=== PATIENT | female | born 1995 | race Caucasian/White ===

== ENCOUNTER 2016-11-23 09:24 | Inpatient (IN) | payer OTHER ==
[~2016-11-23] VITALS: Ht 165.1 cm; Wt 64.1 kg
[~2016-11-23 09:24] MED LIST: ABIL400I IM; ADVI200C5 PO; ARIP15TAB PO; FLUO10CA9 PO; HYDR25T PO; TRAZO50TA PO
[2016-11-23 10:27] LABS: MEAN CORPUSCULAR HEMOGLOBIN 31.4 pg (27.0-33.0); MEAN CORPUSCULAR HGB CONC 34.7 g/dl (32.0-36.5); MEAN CORPUSCULAR VOLUME 90.4 fl (80.0-96.0); RED CELL DISTRIBUTION WIDTH 12.1 % (11.5-14.5); WHITE BLOOD COUNT 4.6 K/mm3 (4.0-10.0)
[2016-11-23 10:34] LABS: AMPHETAMINES LEVEL URINE NEGATIVE (NEGATIVE); BENZODIAZEPINES URINE NEGATIVE (NEGATIVE); COCAINE METABOLITE URINE NEGATIVE (NEGATIVE); METHADONE URINE NEGATIVE (NEGATIVE)
[2016-11-23 10:35] LABS: CONTROL LINE INT CTR LINE PRESENT; OPIATES URINE NEGATIVE (NEGATIVE); TRICYCLIC ANTIDEPRESS URINE NEGATIVE (NEGATIVE)
[2016-11-23 10:46] LABS: CONTROL LINE HCG INT CTR LINE PRESENT
[2016-11-23 11:02] LABS: ALBUMIN 4.4 GM/DL (3.2-5.2); ALBUMIN/GLOBULIN RATIO 1.29 (1.00-1.93); ALKALINE PHOSPHATASE 89 U/L (45-117); ALT/SGPT 15 U/L (12-78); ANION GAP 9 MEQ/L (8-16); AST/SGOT 9 U/L (15-37); BILIRUBIN,DIRECT 0.2 MG/DL (0.0-0.2); BILIRUBIN,TOTAL 0.5 MG/DL (0.2-1.0); BLOOD UREA NITROGEN 11 MG/DL (7-18); CALCIUM LEVEL 8.6 MG/DL (8.5-10.1); CARBON DIOXIDE LEVEL 25 MEQ/L (21-32); CHLORIDE LEVEL 107 MEQ/L (98-107); CREATININE FOR GFR 0.82 MG/DL (0.55-1.02); GLUCOSE, FASTING 85 MG/DL (70-105); SODIUM LEVEL 141 MEQ/L (136-145); TOTAL PROTEIN 7.8 GM/DL (6.4-8.2)
--- NOTE | 2016-11-23 16:03 | EDDOCDS ---
Nurse's Notes [facility] Name: Allison Baum Age: 21 yrs Sex: Female : 1995 Arrival Date: 11/23/2016 Time: 09:24 Bed [facility] Private MD: NO PRIMARY PHYSICIAN, . Diagnosis: Major depressive disorder, recurrent, moderate;Suicidal ideations Presentation: 11/23 09:27 Presenting complaint: Patient states: Depression with "recent thoughts of being ". b1 Mental Health Triage Level: Level 2: The patient displays active suicidal ideations. Adult Sepsis Screening: The patient does not have new or worsening altered mentation. Patient's respiratory rate is less than 22. Systolic blood pressure is greater than 100. Patient has a qSOFA score of 0- Negative Sepsis Screen. Suicide/Homicide risk assessment- The patient admits to and/or has been reported to be having suicidal ideations. The patient reports that he/she has not been admitted to an inpatient mental health facility in the last 30 days. The patient reports that he/she has a recent or current history of substance abuse. The patient reports that he/she has no prior history of suicide attempt and/or organized plan. The patient reports that he/she has not experienced a significant life altering event in the last 30 days. The patient reports that he/she lacks adequate social support. The patient reports he/she has no significant chronic medical condition(s). Status: Patient is not a service delivery manager or dependent. Transition of care: patient was not received from another setting of care. 09:27 Acuity: JUAN J Level 3 b1 09:27 Method Of Arrival: Walkin/Carried/Asstd mlb1 09:30 Red Flag criteria, patient assessed and taken directly to a bed. b1 Triage Assessment: 09:30 General: Appears in no apparent distress, Behavior is appropriate for age, cooperative. mlb1 Pain: Denies pain. HIV screening NA for this visit Offered previously. [employer]: 09:30 LMP 11/06/2016 mlb1 Historical: - Allergies: no known allergies; - Home Meds: 1. none - PMHx: Anxiety; Depression; Schizo-Affective Disorder; - PSHx: none; - The history from nurses notes was reviewed: and I agree with what is documented. - Social history: Smoking status: Patient uses tobacco products, light tobacco smoker. No barriers to communication noted, The patient speaks fluent [place] Verdean, Speaks appropriately for age. - : The pt / caregiver states he / she is not on anticoagulants. Home medication list is obtained from the patient. - Hospitalizations: : No recent hospitalization is reported. - Exposure Risk Screening:: None identified. - Immunization history:: All immunizations up-to-date. - Family history: Not pertinent. - Social history:: the patient smokes cigarettes the patient drinks alcohol. Screenin:56 Screening information is obtained from the patient. Fall risk: No risks identified. mb9 Assistance ADL's: requires no assistance with activities of daily living. Abuse/DV Screen: The patient / caregiver reports he/she is: not in a situation that causes fear, pain or injury. Nutritional screening: No deficits noted. Advance Directives: There is no active DNR order. home support is adequate. Assessment: 11:15 General: Appears in no apparent distress, comfortable, Behavior is appropriate for age, mb9 cooperative, pt resting comfortably on the stretcher. security observing. . 12:26 General: Appears in no apparent distress, comfortable, Behavior is cooperative, mom in mb9 to see pt. security observing. . 14:58 General: Appears in no apparent distress, comfortable, Behavior is appropriate for age, mb9 cooperative. Respiratory: Airway is patent Respiratory effort is even, unlabored. 15:55 Reassessment: Patient appears in no apparent distress at this time. General: Appears mb9 comfortable, Behavior is appropriate for age, cooperative. Respiratory: Airway is patent Respiratory effort is even, unlabored. Mental Health Eval: 11:43 Mental health consult is initiated at 11:00. Status: The patient is not a ml4 service delivery manager or dependent. [facility] Behavioral Health: The patient is not an established patient of [facility] Behavioral Health. Referral Information: Evaluation referral is generated by Alona Rios, [facility] \\T\\ TLS . . The patient was referred for evaluation because pt was at counseling appt today and expressed passive SI . Subjective: The patients chief complaint is pt states, "I'm not suicidal, but my therapist was concerned because I burned my finger 2 days ago." Pt reports suffering from vague SI for the past week due some on-going stressors. States she doesn't care if she lives or dies. 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 Pt also states she's lonely and feels like a burden to her family due to the above stressors. She denies active SI, however states, "we all and I wouldn't care if it happened to me now." Pt reports a hx of cutting, but nothing recent. Admits burning herself 2 days ago in the presence of a friend after realizing "my life is horrible." At that time she was about to cry, so decided to burn herself instead to redirect her thoughts. Pt denies SI currently, however continues to express passive SI at bedside. . Delusions are denied. Patient's mood is anxious, Hallucinations are denied. Mental Health history: depression, self -mutilation, Mental Health Admissions: Last admission to [facility] 03/10/16 and d/c 03/24/16 Current Outpatient Mental Health Services: Therapist / Agency: JEANNETTE Prado at [facility] . [facility], no psychiatrist due to non-compliance with tx. Pt has a hx of "no shows" . Current living environment is Family / Home Support: adequate The patient currently lives with his / her parents, . The patient is . Patient presents to Emergency Department with the following symptoms within the past 2 weeks: anger, anxiety, erratic appetite depressed mood, drug abuse, feelings of helplessness/hopelessness, non-compliance, pt expresses vague SI, no plan. . poor concentration, poor impulse control, relational problem, Patient has mutilated themselves by burning their left hand. Substance abuse: Patient uses of wine, 1 glass weekly. Patient uses tobacco 1/2 pack Frequency daily. Mental status exam: Patients appearance is appropriate, Patient's behavior is cooperative, Speech is normal. Affect is appropriate. Mood is appropriate. Hallucinations are Denied, "I just hear my inner voice." . Appetite is characterized by binges. Memory is good. Energy level is normal. Content of thought is depressive. due to vague SI Thought process is intact. Cognitive level is oriented to person, place, time and situation Patient's insight is poor. Judgement is poor. Rapport with interviewer is guarded. Suicidal Ideation is denied. Homicidal ideation is denied. Disposition: Medically cleared for disposition by Willy Barakat MD Psychiatric Consult is performed by phone with Dr Apoorva Gerber. [facility] Admission Criteria: The patient displays self-mutilative behavior. The patient requires continuous observation and/or control to protect self, others or property. The patient's care requires a multi-modal treatment plan under close supervision and coordination due to the complexity and severity of the patient's symptoms. The patient requires administration and monitoring of psychoactive medications by skilled medical providers due to the side effects of the psychoactive medications or significant dosage adjustments. Legal Status: Patient's legal status will be Emergency admission: . [place] Safe Act: [place] Safe Act is applicable to this patient. The patient poses a risk to self or other and the Nursing Skein Dyer has been notified. He/She will enter the patient's data. DSM-V Differential Diagnosis: Unspecified Depressive Disorder (F32.9). Narrative: Notice of Status and Rights, FAQ, and Bill of Rights was given at bedside. 13:10 Insurance Pre-Certification: Not Required, [employer] . Awaiting: transfer to [facility]. ml4 Vital Signs: 09:26 BP 129 / 80; Pulse 84; Resp 18; Temp 98.9; Pulse Ox 100% ; Weight 61.23 kg; Height 5 elp ft. 5 in. (165.10 cm); Pain 0/10; 13:18 BP 107 / 63; Pulse 57; Resp 19; Temp 97.4; Pulse Ox 99% on R/A; Pain 0/10; sew 15:55 BP 102 / 65; Pulse 78; Resp 17; Temp 98.3(TE); Pulse Ox 99% ; mb9 09:26 Body Mass Index 22.46 (61.23 kg, 165.10 cm) elp Vitals: 09:26 Log In Time: November 23, 2016 at 09:24. RN notified that patient meets Red Flag elp criteria. ED Course: 09:25 Patient visited by Jennifer Quinones PCA. elp 09:25 Butch [facility] [place] Private Physician. elp 09:25 Patient moved to Waiting elp 09:26 NO PRIMARY PHYSICIAN, . is Private Physician. elp 09:26 Patient visited by Jennifer Quinones PCA. elp 09:27 Patient visited by Juan Gamez, RN. mlb1 09:28 Triage Initiated mlb1 09:30 Patient visited by Juan Gamez RN. mlb1 09:30 Patient moved to [facility] mlb1 09:38 Willy Barakat MD is Attending Physician. pc 09:39 Pt greeted and oriented to ED. Patient advised of names of staff involved in care, jrd location of call arreola, wait times and NPO status. Accompanied by Family Member, Patient has correct armband on for positive identification. Placed in psych safe attire. Bed in low position. Call light in reach. Side rails up X 1. Security observing. Property removed, secured in belongings bag- Placed in locker #5. Property :property removal is pending the arrival of a female observer. vascular technologist (pro) notified. Door closed. Noise minimized. Visitors limited. Report received from rn - psych. triage level #2, +si, cooperative \\T\\ this time. The patient / caregiver is instructed regarding the plan of care and ED course. Psych Safety Check: Location: Psych Room. 09:53 Patient visited by Janes Bran PCA. jrd 10:00 Patient visited by Willy Barakat MD. pc 10:14 Patient visited by Gonzalez Paniagua Security Aide. pjf 10:18 Acetaminophen Level Sent. jrd 10:18 Thyroid Stimulating Hormone Sent. jrd 10:18 Salicylate Level Sent. jrd 10:18 Liver Profile Sent. jrd 10:18 HCG,Serum Qualitative Sent. jrd 10:18 Ethyl Alcohol (ethanol) Sent. jrd 10:18 Drug Eval Toxicology ED Only Sent. jrd 10:18 Complete Blood Count Sent. jrd 10:19 Basic Metabolic Profile Sent. jrd 10:28 Patient visited by Gonzalez Paniagua Security Aide. pjf 10:43 Patient visited by Gonzalez Paniagua Security Aide. pjf 10:43 [facility] [place] Agreement was scanned into [employer] and attached to record. jls1 10:58 Patient visited by Gonzalez Paniagua Security Aide. pjf 11:11 Patient visited by Gonzalez Paniagua Security Aide. pjf 11:36 Patient visited by Orin Bowen. sew 11:36 Psych Safety Check: Location: Psych Room. Visual Assessment: Cooperative, pt talking sew with PSA. 11:49 Patient visited by Orin Bowen. sew 11:49 Psych Safety Check: Location: Psych Room. Visual Assessment: Cooperative. sew 12:06 Psych Safety Check: Location: Psych Room. Visual Assessment: Cooperative. sew 12:07 Patient visited by Orin Bowen. sew 12:14 Apoorva Gerber is Hospitalizing Provider. pc 12:23 Patient visited by Orin Bowen. sew 12:23 Psych Safety Check: Location: Psych Room. Visual Assessment: Cooperative. sew 12:52 Patient visited by Orin Bowen. sew 12:52 Patient visited by Orin Bowen. sew 12:52 Diet: Patient given regular meal. Psych Safety Check: Location: Psych Room. Visual sew Assessment: Cooperative. 13:07 Patient visited by Orin Bowen. sew 13:07 Psych Safety Check: Location: Psych Room. Visual Assessment: Cooperative. sew 13:09 [facility] Legal paperwork was scanned into [employer] and attached to record. ml4 13:10 Patient visited by Orin Bowen. sew 13:10 Diet: Tolerated well. sew 13:18 Patient visited by Orin Bowen. sew 13:44 Psych Safety Check: Location: Psych Room. Visual Assessment: Cooperative. sew 13:45 Patient visited by Orin Bowen. sew 13:56 Psych Safety Check: Location: Psych Room. Visual Assessment: Cooperative. sew 13:57 Patient visited by Orin Bowen. sew 14:07 Patient visited by Orin Bowen. sew 14:07 Psych Safety Check: Location: Psych Room. Visual Assessment: Cooperative. sew 14:22 Psych Safety Check: Location: Psych Room. Visual Assessment: Cooperative. sew 14:23 Patient visited by Orin Bowen. sew 14:37 Patient visited by Orin Bowen. sew 14:37 Psych Safety Check: Location: Psych Room. Visual Assessment: Cooperative. sew 14:48 Psych Safety Check: Location: Psych Room. Visual Assessment: Cooperative. sew 14:49 Patient visited by Orin Bowen. sew 15:05 Psych Safety Check: Location: Psych Room. Visual Assessment: Cooperative. mb9 15:15 Patient visited by Orin Bowen. sew 15:15 Psych Safety Check: Location: Psych Room. Visual Assessment: Cooperative. sew 15:27 Psych Safety Check: Location: Psych Room. Visual Assessment: Sleeping. sew 15:28 Patient visited by Orin Bowen. sew 15:39 Patient visited by Orin Bowen. sew 15:39 Psych Safety Check: Location: Psych Room. Visual Assessment: Cooperative. sew 15:53 [facility] Legal paperwork was scanned into [employer] and attached to record. ml4 15:56 No IV's were initiated during this patient's visit. No procedures done that require mb9 assistance. Attachments: 15:53 [facility] Legal paperwork ml4 Order Results: Lab Order: Acetaminophen Level; SPEC'11/23/16 10:14 Test: ACETAMINOPHEN LEVEL; Value: < 2.0; Range: 10.0-30.0; Abnormal: Below low normal; Units: UG/ML; Status: F Lab Order: Basic Metabolic Profile; SPEC'11/23/16 10:14 Test: GLUCOSE, FASTING; Value: 85; Range: 70-105; Units: MG/DL; Status: F Test: BLOOD UREA NITROGEN; Value: 11; Range: 7-18; Units: MG/DL; Status: F Test: CREATININE FOR GFR; Value: 0.82; Range: 0.55-1.02; Units: MG/DL; Status: F Test: SODIUM LEVEL; Value: 141; Range: 136-145; Units: MEQ/L; Status: F Test: POTASSIUM SERUM; Value: 4.0; Range: 3.5-5.1; Units: MEQ/L; Status: F Test: CHLORIDE LEVEL; Value: 107; Range: 98-107; Units: MEQ/L; Status: F Test: CARBON DIOXIDE LEVEL; Value: 25; Range: 21-32; Units: MEQ/L; Status: F Test: ANION GAP; Value: 9; Range: 8-16; Units: MEQ/L; Status: F Test: CALCIUM LEVEL; Value: 8.6; Range: 8.5-10.1; Units: MG/DL; Status: F Lab Order: Complete Blood Count; SPEC'M 11/23/16 10:14 Test: WHITE BLOOD COUNT; Value: 4.6; Range: 4.0-10.0; Units: K/mm3; Status: F Test: RED BLOOD COUNT; Value: 4.22; Range: 4.00-5.40; Units: M/mm3; Status: F Test: HEMOGLOBIN; Value: 13.3; Range: 12.0-16.0; Units: g/dl; Status: F Test: HEMATOCRIT; Value: 38.2; Range: 36.0-47.0; Units: %; Status: F Test: MEAN CORPUSCULAR VOLUME; Value: 90.4; Range: 80.0-96.0; Units: fl; Status: F Test: MEAN CORPUSCULAR HEMOGLOBIN; Value: 31.4; Range: 27.0-33.0; Units: pg; Status: F Test: MEAN CORPUSCULAR HGB CONC; Value: 34.7; Range: 32.0-36.5; Units: g/dl; Status: F Test: RED CELL DISTRIBUTION WIDTH; Value: 12.1; Range: 11.5-14.5; Units: %; Status: F Test: PLATELET COUNT, AUTOMATED; Value: 242; Range: 150-450; Units: k/mm3; Status: F Lab Order: Drug Eval Toxicology ED Only; SPEC'M 11/23/16 10:14 Test: AMPHETAMINES LEVEL URINE; Value: NEGATIVE; Range: NEGATIVE; Status: F Test: BARBITURATES URINE; Value: NEGATIVE; Range: NEGATIVE; Status: F Test: BENZODIAZEPINES URINE; Value: NEGATIVE; Range: NEGATIVE; Status: F Test: CANNABINOIDS URINE; Value: POSITIVE; Range: NEGATIVE; Abnormal: Above high normal; Status: F Test: COCAINE METABOLITE URINE; Value: NEGATIVE; Range: NEGATIVE; Status: F Test: METHADONE URINE; Value: NEGATIVE; Range: NEGATIVE; Status: F Test: OPIATES URINE; Value: NEGATIVE; Range: NEGATIVE; Status: F Test: TRICYCLIC ANTIDEPRESS URINE; Value: NEGATIVE; Range: NEGATIVE; Status: F Test Note: ; FALSE POSITIVE RESULTS CAN BE CAUSED BY THE USE OF PANTOPRAZOLE (PROTONIX). Lab Order: Ethyl Alcohol (ethanol); SPEC'M 11/23/16 10:14 Test: ETHYL ALCOHOL (ETHANOL); Value: < 0.003; Range: 0.000-0.010; Units: %; Status: F Lab Order: HCG,Serum Qualitative; SPEC'M 11/23/16 10:14 Test: HCG, SERUM QUALITATIVE; Value: NEGATIVE; Range: NEGATIVE; Status: F Lab Order: Liver Profile; SPEC'M 11/23/16 10:14 Test: AST/SGOT; Value: 9; Range: 15-37; Abnormal: Below low normal; Units: U/L; Status: F Test: ALT/SGPT; Value: 15; Range: 12-78; Units: U/L; Status: F Test: ALKALINE PHOSPHATASE; Value: 89; Range: 45-117; Units: U/L; Status: F Test: BILIRUBIN,TOTAL; Value: 0.5; Range: 0.2-1.0; Units: MG/DL; Status: F Test: BILIRUBIN,DIRECT; Value: 0.2; Range: 0.0-0.2; Units: MG/DL; Status: F Test: TOTAL PROTEIN; Value: 7.8; Range: 6.4-8.2; Units: GM/DL; Status: F Test: ALBUMIN; Value: 4.4; Range: 3.2-5.2; Units: GM/DL; Status: F Test: ALBUMIN/GLOBULIN RATIO; Value: 1.29; Range: 1.00-1.93; Status: F Lab Order: Salicylate Level; SPEC'M 11/23/16 10:14 Test: SALICYLATE LEVEL; Value: 2.1; Range: 5.0-30.0; Abnormal: Below low normal; Units: MG/DL; Status: F Lab Order: Thyroid Stimulating Hormone; SPEC'M 11/23/16 10:14 Test: THYROID STIMULATING HORMONE; Value: 0.522; Range: 0.463-3.98; Units: uIU/ML; Status: F Outcome: 12:14 Decision to Hospitalize by Provider. pc 15:56 Discharge Assessment: Patient awake, alert and oriented x 3. No cognitive and/or mb9 functional deficits noted. Patient verbalized understanding of disposition instructions. patient administered narcotics - no. The following High Risk Discharge criteria are identified: None. Discharged to home ambulatory. Condition: good Condition: stable Condition: improved. No special radiology studies were completed. 16:02 Patient left the ED. mb9 Signatures: Willy Barakat MD MD pc Ferendzo, Paul, Juan Scales RN RN mlb1 Bety Martin, PSA PSA ml4 Andrés, Jennifer Hines, NEW CAR GET READY MECHANIC NEW CAR GET READY MECHANIC Janes Robertson, NEW CAR GET READY MECHANIC NEW CAR GET READY MECHANIC Juan Medel RN RN mb9 Vonda Mcclures1 Corrections: (The following items were deleted from the chart) 14:58 11:43 Referral Information: Evaluation referral is generated by Alona Rios, [facility] ml4 \\T\\ [facility]#[phone]. . The patient was referred for evaluation because pt was counseling appt today and expressed passive SI . ml4 MTDD
--- NOTE | 2016-11-23 16:03 | EDDOCDS ---
Physician Documentation [facility] Name: Allison Baum Age: 21 yrs Sex: Female : 1995 Arrival Date: 11/23/2016 Time: 09:24 Bed U5 Private MD: NO PRIMARY PHYSICIAN, . Disposition: 11/23 12:11 Critical Care: Critical care not applicable. pc Disposition: 11/23/16 12:14 Hospitalization ordered by Apoorva Gerber for Inpatient Admission. Preliminary diagnosis are Major depressive disorder, recurrent, moderate, Suicidal ideations. - Bed requested for Admit. - Status is Inpatient Admission. mb9 - Condition is Stable. - Problem is new. - Symptoms are unchanged. HPI: 12:11 This 21 yrs old Female presents to ER via Walkin/Carried/Asstd with pc complaints of Psych Problem. 12:11 The history is obtained from the patient. The patient presents to the emergency pc department with suicidal ideation, depression. The patient has experienced similar episodes in the past. The patient has not recently seen a physician. Historical: - Allergies: no known allergies; - Home Meds: 1. none - PMHx: Anxiety; Depression; Schizo-Affective Disorder; - PSHx: none; - The history from nurses notes was reviewed: and I agree with what is documented. - Social history: Smoking status: Patient uses tobacco products, light tobacco smoker. No barriers to communication noted, The patient speaks fluent Moroccan, Speaks appropriately for age. - : The pt / caregiver states he / she is not on anticoagulants. Home medication list is obtained from the patient. - Hospitalizations: : No recent hospitalization is reported. - Exposure Risk Screening:: None identified. - Immunization history:: All immunizations up-to-date. - Family history: Not pertinent. - Social history:: the patient smokes cigarettes the patient drinks alcohol. OPERATIONS STAFF SPECIALIST SECURITY: 09:30 LMP 11/06/2016 mlb1 ROS: 12:11 All systems are negative except as listed. The psychiatric and neurological components pc are also addressed in the HPI. Exam: 12:11 General Appearance: alert, no acute distress. pc 12:11 ENT: ear, nose and throat normal, pharynx normal. 12:11 Eyes: pupils equal, round and reactive to light, extraocular motions intact. 12:11 Neck: The exam reveals no acute abnormalities. ROM is normal and painless. No nuchal rigidity is noted.. 12:11 Respiratory: breathing is even and unlabored, breath sounds are normal. 12:11 Cardiovascular: regular pulse rate, regular heart rhythm, normal heart sounds, equal and full pulses bilaterally. 12:11 Abdomen: soft, non-tender, no organomegaly, normal bowel sounds. 12:11 Skin: skin color is normal, warm, dry. 12:11 Extremities: The extremities have a grossly normal appearance, are non-tender, without acute ROM abnormalities. 12:11 Neuro: alert, oriented to person, place and time, cranial nerves normal as tested, no motor deficits, no sensory deficits. 12:11 Psych: mood is normal, affect is appropriate. Vital Signs: 09:26 BP 129 / 80; Pulse 84; Resp 18; Temp 98.9; Pulse Ox 100% ; Weight 61.23 kg / 134.99 elp lbs; Height 5 ft. 5 in. (165.10 cm); Pain 0/10; 13:18 BP 107 / 63; Pulse 57; Resp 19; Temp 97.4; Pulse Ox 99% on R/A; Pain 0/10; sew 15:55 BP 102 / 65; Pulse 78; Resp 17; Temp 98.3(TE); Pulse Ox 99% ; mb9 09:26 Body Mass Index 22.46 (61.23 kg, 165.10 cm) elp MDM: 09:39 Consult PFS/PSA/Deputy Clerk: Patient's case requires discussion with on-call pc Psychiatrist ordered. 09:39 PSA/PFS to call Nursing Business Account Leader, to enter patient data on [place] Safe [place] if patient pc involuntarily admitted or transferred for SI or HI ordered. 09:39 Confirm accurate psychiatric medication list and times of last dosage ordered. pc 09:39 Detain Pt Until Medically/PFS Cleared ordered. pc 09:40 Acetaminophen Level Ordered. EDMS 09:40 Basic Metabolic Profile Ordered. EDMS 09:40 Complete Blood Count Ordered. EDMS 09:40 Drug Eval Toxicology ED Only Ordered. EDMS 09:40 Ethyl Alcohol (ethanol) Ordered. EDMS 09:40 HCG,Serum Qualitative Ordered. EDMS 09:40 Liver Profile Ordered. EDMS 09:40 Salicylate Level Ordered. EDMS 09:40 Thyroid Stimulating Hormone Ordered. EDMS 10:43 [facility] [place] was scanned into [employer] and attached to record. jls1 10:43 Financial registration complete. jls1 11:15 REGULAR DIET PLASTIC SAMANO+DIET ordered. EDMS 12:11 Differential diagnosis: depression, suicidal ideation. Plan: labs, PFS eval. The patient has been medically cleared for psychiatric evaluation, admission and/or transfer. [place] Safe Act reporting: The patient poses a significant risk to self or others, and PSA/PFS has notified the Nursing Business Account Leader and he/she will complete the required data management manager. Data reviewed: old medical records, vital signs, nurses notes, lab test results. Test interpretation: LAB - all labs as ordered have been reviewed, interpreted and considered in the overall management of the clinical presentation;. The patient has been re-examined and re-evaluated. There is no appreciated change of the patient's symptoms at this time. Disposition: The historical points, examination findings, and any diagnostic results supporting the provided diagnosis, were discussed with the patient or legal guardian. The need for further work-up and/or treatment in the hospital was explained. 12:51 Admit to [facility]: ordered. EDMS 13:09 [facility] Legal paperwork was scanned into [employer] and attached to record. ml4 14:07 Acetaminophen Level Reviewed. pc 14:07 Drug Eval Toxicology ED Only Reviewed. pc 14:07 Liver Profile Reviewed. pc 14:07 Salicylate Level Reviewed. pc 14:07 Basic Metabolic Profile Reviewed. pc 14:07 Complete Blood Count Reviewed. pc 14:07 Ethyl Alcohol (ethanol) Reviewed. pc 14:07 HCG,Serum Qualitative Reviewed. pc 14:07 Thyroid Stimulating Hormone Reviewed. pc 15:47 Consult PFS/PSA/Deputy Clerk: Patient's case requires discussion with on-call ca Psychiatrist complete. 15:47 PSA/PFS to call Nursing Business Account Leader, to enter patient data [place] if patient ca involuntarily admitted or transferred for SI or HI complete. 15:53 [facility] Legal paperwork was scanned into [employer] and attached to record. ml4 Signatures: Dispatcher [employer] EDMS Willy Barakat MD MD pc Anderson, Cathy, PSA PSA ca Juan Gamez RN RN mlb1 Bety Martin, PSA PSA ml4 Juan Amaya RN RN mb9 Vonda Mcclure jls1 The chart was reviewed and I authenticate all verbal orders and agree with the evaluation and treatment provided.Attachments: 10:43 [facility] Payment Agreement jls1 MTDD
[2016-11-23 16:15] VITALS: BP 105/70
[2016-11-23] MEDS ORDERED: MOM 30ML SUSPENSION UDC PO PRN (18:30)
[2016-11-23] MEDS ORDERED: MAALOX 30 ML SUSP *UDC PO PRN (18:30)
[2016-11-23] MEDS: IBUPROFEN 400 MG TAB PO PRN (20:18)
[2016-11-23] MEDS: traZODone 50 MG TAB PO PRN (21:47)
[2016-11-24 06:39] VITALS: BP 80/50
[2016-11-24] MEDS: IBUPROFEN 400 MG TAB PO PRN (09:36)
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
--- NOTE | 2016-11-24 10:49 | HPEPDOC ---
Medical History and Physical Date of Admission Nov 23, 2016 at 16:08 History and Physical PCP: Butch ATTENDING: Dr. Brendon Posey HPI: 21yoF admitted to [facility] for unspecified depressive disorder, being medically examined today. No acute medical complaints today. Denies any fevers, chills, weakness, fatigue, MOBLEY, CP, SOB, cough, palpitations, abdominal pain, N/V /D or changes in bowel or bladder habits. PMHx: Anxiety Depression Schizoaffective disorder Self-mutilation HSV-genital. PSHX: Oral surgery at 4 years old SOCHX: Resides in: [place] with parents Marital Status: Kids: None Employment: Unemployed Tobacco use: 3 cigarettes per day ETOH: 2-3 drinks per month Illicit Drugs: Marijuana weekly IV Drug Use: Denies Tattoos done unprofessionally: Denies FAMHX: Mother: Alive, well Father: Alive, COPD Siblings: Alive, well Children: None Unexpected deaths due to medical reasons: None. ROS: As noted in HPI, otherwise 11pt ROS of systems reviewed and remarkable only for LMP 11/06/16 PE: GEN: 21yoF, appears stated age. Well-nourished, well developed. No acute distress. Alert and oriented x 3. Pleasant, interactive. HEENT: Normocephalic, atraumatic. Pupils are equal, round, and reactive to light. Extraocular movements are intact. No nystagmus appreciated. Sclera are nonicteric. Conjunctiva without injection. Nose midline. Nasal turbinates without bogginess. EACs both patent BL. TMs both visualized and fournier with good cone of light, no bulging or erythema. No facial asymmetry. Moist mucous membranes. Dentition fair. Pharynx pink and moist, no cobblestoning. Neck supple , trachea midline. No lymphadenopathy or thyromegaly appreciated. CHEST: Regular rate and rhythm, +S1, +S2 LUNGS: Clear to auscultation bilaterally. No wheezes, rales, or rhonchi. Breathing appears symmetric and easy. Patient is speaking in full sentences. No accessory muscle use. ABD: Round, soft, non-tender, non-distended. +Bowel sounds throughout. No rebound or guarding. No costovertebral angle tenderness. EXT: Pulses 2+ bilaterally dorsalis pedis and radial. No lower extremity edema appreciated. SKIN: [place], dry, warm. Capillary refill <2sec. No rashes. Healed cuts on the forearms bilaterally, no recent cuts are noted. NEURO: Alert and oriented x 3. Cranial nerves III-XII are intact. No focal deficits appreciated. EKG: Pending. A&P: 21yoF admitted to [facility] for unspecified depressive disorder 1. Psych. Plan per Psychiatry. Obtain baseline EKG to assure the safety of psychiatric medications as they can prolong the QT interval. 2. Nicotine dependence. Patch available. 3. History of HSV, genital. Patient states her initial outbreak was approximately 1 month ago. She has not had any recurrent outbreak. She is aware to report recurrent tingling, pain, or recurrent skin lesions. Monitor. 4. Follow up. No Primary Care Provider. Will attempt to establish PCP on discharge. 5. Cannabinoid use. 6. Staff member present throughout examination, Nova DONALD. Vital Signs Vital Signs Label Value Date Time Patient Temperature 98.7 degrees F 11/24/16 0639 Temperature Source Tympanic 11/24/16 0639 Pulse 67 11/24/16 0639 Respiratory Rate 16 bpm 11/24/16 0639 Blood Pressure Assessment 80/50 (60) 11/24/16 0639 Blood Pressure Assessment 105/70 (82) 11/23/16 1615 Laboratory Data Labs 24H Item Value Date Time White Blood Count 4.6 K/mm3 11/23/16 1014 Red Blood Count 4.22 M/mm3 11/23/16 1014 Hemoglobin 13.3 g/dl 11/23/16 1014 Hematocrit 38.2 % 11/23/16 1014 Mean Corpuscular Volume 90.4 fl 11/23/16 1014 Mean Corpuscular Hemoglobin 31.4 pg 11/23/16 1014 Mean Corpuscular Hemoglobin Concent 34.7 g/dl 11/23/16 1014 Red Cell Distribution Width 12.1 % 11/23/16 1014 Platelet Count 242 k/mm3 11/23/16 1014 Sodium Level 141 MEQ/L 11/23/16 1014 Potassium Level 4.0 MEQ/L 11/23/16 1014 Chloride Level 107 MEQ/L 11/23/16 1014 Carbon Dioxide Level 25 MEQ/L 11/23/16 1014 Anion Gap 9 MEQ/L 11/23/16 1014 Blood Urea Nitrogen 11 MG/DL 11/23/16 1014 Creatinine 0.82 MG/DL 11/23/16 1014 Fasting Glucose 85 MG/DL 11/23/16 1014 Calcium Level 8.6 MG/DL 11/23/16 1014 Total Bilirubin 0.5 MG/DL 11/23/16 1014 Direct Bilirubin 0.2 MG/DL 11/23/16 1014 Aspartate Amino Transf (AST/SGOT) 9 U/L L 11/23/16 1014 Alanine Aminotransferase (ALT/SGPT) 15 U/L 11/23/16 1014 Alkaline Phosphatase 89 U/L 11/23/16 1014 Total Protein 7.8 GM/DL 11/23/16 1014 Albumin 4.4 GM/DL 11/23/16 1014 Albumin/Globulin Ratio 1.29 11/23/16 1014 Thyroid Stimulating Hormone (TSH) 0.522 uIU/ML 11/23/16 1014 Human Chorionic Gonadotropin, Qual NEGATIVE 11/23/16 1014 Salicylates Level 2.1 MG/DL L 11/23/16 1014 Urine Opiates Screen NEGATIVE 11/23/16 1014 Urine Methadone Screen NEGATIVE 11/23/16 1014 Acetaminophen Level < 2.0 UG/ML L 11/23/16 1014 Urine Barbiturates, Qualitative NEGATIVE 11/23/16 1014 Urine Tricyclic Antidepressants NEGATIVE 11/23/16 1014 Urine Amphetamine Level NEGATIVE 11/23/16 1014 Urine Benzodiazepines Screen NEGATIVE 11/23/16 1014 Urine Cocaine Metabolite NEGATIVE 11/23/16 1014 Urine Cannabinoids POSITIVE H 11/23/16 1014 Ethyl Alcohol Level < 0.003 % 11/23/16 1014 Home Medications No Active Prescriptions or Reported Meds Allergies Coded Allergies: No Known Allergies (Unverified , 03/20/16) Barbara Scott Nov 24, 2016 10:49
[2016-11-24] MEDS: NICOTINE 7 MG/24 HR TRANSDERMAL TD SCH (11:37)
--- NOTE | 2016-11-24 16:47 | ECGEPIP ---
Stationary ECG Study [facility] Test Date: 2016-11-24 Pat Name: CICI HARDING Department: Room: [place] [address] Gender: F Brim Flexer: : 1995 Requested By: Barbara Scott Order Number: [id number] Reading MD: Preet Glass Measurements Intervals [place] Rate: 65 P: 59 IA: 160 QRS: 7 QRSD: 97 T: 36 QT: 372 QTc: 388 Interpretive Statements Normal sinus rhythm Normal EKG There is NO pacemaker activity Comparison tracing not on file Electronically Signed On 11-24-2016 16:47:19 EST by Preet Glass
[2016-11-24 18:00] VITALS: BP 111/67
[2016-11-24] MEDS: traZODone 50 MG TAB PO PRN (21:08)
[2016-11-25 06:38] VITALS: BP 135/81
[2016-11-25] MEDS: NICOTINE 7 MG/24 HR TRANSDERMAL TD SCH (07:52)
[2016-11-25] MEDS: IBUPROFEN 400 MG TAB PO PRN ×3 (07:52→21:18)
[2016-11-25] MEDS ORDERED: OXcarbazepine 150 MG TAB PO SCH (09:00)
--- NOTE | 2016-11-25 17:04 | EDDOCDS ---
Physician Documentation [facility] Name: Allison Baum Age: 21 yrs Sex: Female : 1995 Arrival Date: 11/23/2016 Time: 09:24 Bed U5 Private MD: NO PRIMARY PHYSICIAN, . Disposition: 11/23 12:11 Critical Care: Critical care not applicable. pc Disposition: 11/23/16 12:14 Hospitalization ordered by Apoorva Gerber for Inpatient Admission. Preliminary diagnosis are Major depressive disorder, recurrent, moderate, Suicidal ideations. - Bed requested for Admit. - Status is Inpatient Admission. mb9 - Condition is Stable. - Problem is new. - Symptoms are unchanged. HPI: 12:11 This 21 yrs old Female presents to ER via Walkin/Carried/Asstd with pc complaints of Psych Problem. 12:11 The history is obtained from the patient. The patient presents to the emergency pc department with suicidal ideation, depression. The patient has experienced similar episodes in the past. The patient has not recently seen a physician. Historical: - Allergies: no known allergies; - Home Meds: 1. none - PMHx: Anxiety; Depression; Schizo-Affective Disorder; - PSHx: none; - The history from nurses notes was reviewed: and I agree with what is documented. - Social history: Smoking status: Patient uses tobacco products, light tobacco smoker. No barriers to communication noted, The patient speaks fluent Romanian, Speaks appropriately for age. - : The pt / caregiver states he / she is not on anticoagulants. Home medication list is obtained from the patient. - Hospitalizations: : No recent hospitalization is reported. - Exposure Risk Screening:: None identified. - Immunization history:: All immunizations up-to-date. - Family history: Not pertinent. - Social history:: the patient smokes cigarettes the patient drinks alcohol. 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 The psychiatric and neurological components pc are also addressed in the HPI. Exam: 12:11 General Appearance: alert, no acute distress. pc 12:11 ENT: ear, nose and throat normal, pharynx normal. 12:11 Eyes: pupils equal, round and reactive to light, extraocular motions intact. 12:11 Neck: The exam reveals no acute abnormalities. ROM is normal and painless. No nuchal rigidity is noted.. 12:11 Respiratory: breathing is even and unlabored, breath sounds are normal. 12:11 Cardiovascular: regular pulse rate, regular heart rhythm, normal heart sounds, equal and full pulses bilaterally. 12:11 Abdomen: soft, non-tender, no organomegaly, normal bowel sounds. 12:11 Skin: skin color is normal, warm, dry. 12:11 Extremities: The extremities have a grossly normal appearance, are non-tender, without acute ROM abnormalities. 12:11 Neuro: alert, oriented to person, place and time, cranial nerves normal as tested, no motor deficits, no sensory deficits. 12:11 Psych: mood is normal, affect is appropriate. Vital Signs: 09:26 BP 129 / 80; Pulse 84; Resp 18; Temp 98.9; Pulse Ox 100% ; Weight 61.23 kg / 134.99 elp lbs; Height 5 ft. 5 in. (165.10 cm); Pain 0/10; 13:18 BP 107 / 63; Pulse 57; Resp 19; Temp 97.4; Pulse Ox 99% on R/A; Pain 0/10; sew 15:55 BP 102 / 65; Pulse 78; Resp 17; Temp 98.3(TE); Pulse Ox 99% ; mb9 09:26 Body Mass Index 22.46 (61.23 kg, 165.10 cm) elp MDM: 09:39 Consult PFS/PSA/Information Technology Consultant: Patient's case requires discussion with on-call pc Psychiatrist ordered. 09:39 PSA/PFS to call Nursing General Forecaster, to enter patient data on [place] Safe [place] if patient pc involuntarily admitted or transferred for SI or HI ordered. 09:39 Confirm accurate psychiatric medication list and times of last dosage ordered. pc 09:39 Detain Pt Until Medically/PFS Cleared ordered. pc 09:40 Acetaminophen Level Ordered. EDMS 09:40 Basic Metabolic Profile Ordered. EDMS 09:40 Complete Blood Count Ordered. EDMS 09:40 Drug Eval Toxicology ED Only Ordered. EDMS 09:40 Ethyl Alcohol (ethanol) Ordered. EDMS 09:40 HCG,Serum Qualitative Ordered. EDMS 09:40 Liver Profile Ordered. EDMS 09:40 Salicylate Level Ordered. EDMS 09:40 Thyroid Stimulating Hormone Ordered. EDMS 10:43 [facility] Payment Agreement was scanned into [employer] and attached to record. jls1 10:43 Financial registration complete. jls1 11:15 REGULAR DIET PLASTIC SAMANO+DIET ordered. EDMS 12:11 Differential diagnosis: depression, suicidal ideation. Plan: labs, PFS eval. The patient has been medically cleared for psychiatric evaluation, admission and/or transfer. [place] Safe Act reporting: The patient poses a significant risk to self or others, and PSA/PFS has notified the Nursing General Forecaster and he/she will complete the required data sme. Data reviewed: old medical records, vital signs, nurses notes, lab test results. Test interpretation: LAB - all labs as ordered have been reviewed, interpreted and considered in the overall management of the clinical presentation;. The patient has been re-examined and re-evaluated. There is no appreciated change of the patient's symptoms at this time. Disposition: The historical points, examination findings, and any diagnostic results supporting the provided diagnosis, were discussed with the patient or legal guardian. The need for further work-up and/or treatment in the hospital was explained. 12:51 Admit to [facility]: ordered. EDMS 13:09 [facility] Legal paperwork was scanned into [employer] and attached to record. ml4 14:07 Acetaminophen Level Reviewed. pc 14:07 Drug Eval Toxicology ED Only Reviewed. pc 14:07 Liver Profile Reviewed. pc 14:07 Salicylate Level Reviewed. pc 14:07 Basic Metabolic Profile Reviewed. pc 14:07 Complete Blood Count Reviewed. pc 14:07 Ethyl Alcohol (ethanol) Reviewed. pc 14:07 HCG,Serum Qualitative Reviewed. pc 14:07 Thyroid Stimulating Hormone Reviewed. pc 15:47 Consult PFS/PSA/Information Technology Consultant: Patient's case requires discussion with on-call ca Psychiatrist complete. 15:47 PSA/PFS to call Nursing General Forecaster, to enter patient data [place] if patient ca involuntarily admitted or transferred for SI or HI complete. 15:53 [facility] Legal paperwork was scanned into [employer] and attached to record. ml4 Signatures: Dispatcher [employer] EDMS Willy Barakat MD MD pc Anderson, Cathy, PSA PSA ca Juan Gamez RN RN mlb1 Bety Martin, PSA PSA ml4 Juan Amaya RN RN mb9 Vonda Mcclure jls1 The chart was reviewed and I authenticate all verbal orders and agree with the evaluation and treatment provided.Attachments: 10:43 [facility] Payment Agreement jls1 Chart Complete MTDD
--- NOTE | 2016-11-25 17:04 | EDDOCDS ---
Physician Documentation [facility] Name: Allison Baum Age: 21 yrs Sex: Female : 1995 Arrival Date: 11/23/2016 Time: 09:24 Bed U5 Private MD: NO PRIMARY PHYSICIAN, . Disposition: 11/23 12:11 Critical Care: Critical care not applicable. pc Disposition: 11/23/16 12:14 Hospitalization ordered by Apoorva Gerber for Inpatient Admission. Preliminary diagnosis are Major depressive disorder, recurrent, moderate, Suicidal ideations. - Bed requested for Admit. - Status is Inpatient Admission. mb9 - Condition is Stable. - Problem is new. - Symptoms are unchanged. HPI: 12:11 This 21 yrs old Female presents to ER via Walkin/Carried/Asstd with pc complaints of Psych Problem. 12:11 The history is obtained from the patient. The patient presents to the emergency pc department with suicidal ideation, depression. The patient has experienced similar episodes in the past. The patient has not recently seen a physician. Historical: - Allergies: no known allergies; - Home Meds: 1. none - PMHx: Anxiety; Depression; Schizo-Affective Disorder; - PSHx: none; - The history from nurses notes was reviewed: and I agree with what is documented. - Social history: Smoking status: Patient uses tobacco products, light tobacco smoker. No barriers to communication noted, The patient speaks fluent Argentine, Speaks appropriately for age. - : The pt / caregiver states he / she is not on anticoagulants. Home medication list is obtained from the patient. - Hospitalizations: : No recent hospitalization is reported. - Exposure Risk Screening:: None identified. - Immunization history:: All immunizations up-to-date. - Family history: Not pertinent. - Social history:: the patient smokes cigarettes the patient drinks alcohol. 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 The psychiatric and neurological components pc are also addressed in the HPI. Exam: 12:11 General Appearance: alert, no acute distress. pc 12:11 ENT: ear, nose and throat normal, pharynx normal. 12:11 Eyes: pupils equal, round and reactive to light, extraocular motions intact. 12:11 Neck: The exam reveals no acute abnormalities. ROM is normal and painless. No nuchal rigidity is noted.. 12:11 Respiratory: breathing is even and unlabored, breath sounds are normal. 12:11 Cardiovascular: regular pulse rate, regular heart rhythm, normal heart sounds, equal and full pulses bilaterally. 12:11 Abdomen: soft, non-tender, no organomegaly, normal bowel sounds. 12:11 Skin: skin color is normal, warm, dry. 12:11 Extremities: The extremities have a grossly normal appearance, are non-tender, without acute ROM abnormalities. 12:11 Neuro: alert, oriented to person, place and time, cranial nerves normal as tested, no motor deficits, no sensory deficits. 12:11 Psych: mood is normal, affect is appropriate. Vital Signs: 09:26 BP 129 / 80; Pulse 84; Resp 18; Temp 98.9; Pulse Ox 100% ; Weight 61.23 kg / 134.99 elp lbs; Height 5 ft. 5 in. (165.10 cm); Pain 0/10; 13:18 BP 107 / 63; Pulse 57; Resp 19; Temp 97.4; Pulse Ox 99% on R/A; Pain 0/10; sew 15:55 BP 102 / 65; Pulse 78; Resp 17; Temp 98.3(TE); Pulse Ox 99% ; mb9 09:26 Body Mass Index 22.46 (61.23 kg, 165.10 cm) elp MDM: 09:39 Consult PFS/PSA/Sales Solutions Representative: Patient's case requires discussion with on-call pc Psychiatrist ordered. 09:39 PSA/PFS to call Nursing Therapeutic Case Manager, to enter patient data [place] if patient pc involuntarily admitted or transferred for SI or HI ordered. 09:39 Confirm accurate psychiatric medication list and times of last dosage ordered. pc 09:39 Detain Pt Until Medically/PFS Cleared ordered. pc 09:40 Acetaminophen Level Ordered. EDMS 09:40 Basic Metabolic Profile Ordered. EDMS 09:40 Complete Blood Count Ordered. EDMS 09:40 Drug Eval Toxicology ED Only Ordered. EDMS 09:40 Ethyl Alcohol (ethanol) Ordered. EDMS 09:40 HCG,Serum Qualitative Ordered. EDMS 09:40 Liver Profile Ordered. EDMS 09:40 Salicylate Level Ordered. EDMS 09:40 Thyroid Stimulating Hormone Ordered. EDMS 10:43 [facility] Payment Agreement was scanned into [employer] and attached to record. jls1 10:43 Financial registration complete. jls1 11:15 REGULAR DIET PLASTIC SAMANO+DIET ordered. EDMS 12:11 Differential diagnosis: depression, suicidal ideation. Plan: labs, PFS eval. The patient has been medically cleared for psychiatric evaluation, admission and/or transfer. [place] Safe Act reporting: The patient poses a significant risk to self or others, and PSA/PFS has notified the Nursing Therapeutic Case Manager and he/she will complete the required voice and data technician. Data reviewed: old medical records, vital signs, nurses notes, lab test results. Test interpretation: LAB - all labs as ordered have been reviewed, interpreted and considered in the overall management of the clinical presentation;. The patient has been re-examined and re-evaluated. There is no appreciated change of the patient's symptoms at this time. Disposition: The historical points, examination findings, and any diagnostic results supporting the provided diagnosis, were discussed with the patient or legal guardian. The need for further work-up and/or treatment in the hospital was explained. 12:51 Admit to [facility]: ordered. EDMS 13:09 [facility] Legal paperwork was scanned into [employer] and attached to record. ml4 14:07 Acetaminophen Level Reviewed. pc 14:07 Drug Eval Toxicology ED Only Reviewed. pc 14:07 Liver Profile Reviewed. pc 14:07 Salicylate Level Reviewed. pc 14:07 Basic Metabolic Profile Reviewed. pc 14:07 Complete Blood Count Reviewed. pc 14:07 Ethyl Alcohol (ethanol) Reviewed. pc 14:07 HCG,Serum Qualitative Reviewed. pc 14:07 Thyroid Stimulating Hormone Reviewed. pc 15:47 Consult PFS/PSA/Sales Solutions Representative: Patient's case requires discussion with on-call ca Psychiatrist complete. 15:47 PSA/PFS to call Nursing Therapeutic Case Manager, to enter patient data [place] if patient ca involuntarily admitted or transferred for SI or HI complete. 15:53 [facility] Legal paperwork was scanned into [employer] and attached to record. ml4 Signatures: Dispatcher [employer] EDMS Willy Barakat MD MD pc Anderson, Cathy, PSA PSA ca Juan Gamez RN RN mlb1 Bety Martin, PSA PSA ml4 Juan Amaya RN RN mb9 Vonda Mcclure jls1 The chart was reviewed and I authenticate all verbal orders and agree with the evaluation and treatment provided.Attachments: 10:43 [facility] Payment Agreement jls1 Chart Complete MTDD
--- NOTE | 2016-11-25 17:04 | EDDOCDS ---
Nurse's Notes [facility] Name: Allison Baum Age: 21 yrs Sex: Female : 1995 Arrival Date: 11/23/2016 Time: 09:24 Bed [facility] Private MD: NO PRIMARY PHYSICIAN, . Diagnosis: Major depressive disorder, recurrent, moderate;Suicidal ideations Presentation: 11/23 09:27 Presenting complaint: Patient states: Depression with "recent thoughts of being ". b1 Mental Health Triage Level: Level 2: The patient displays active suicidal ideations. Adult Sepsis Screening: The patient does not have new or worsening altered mentation. Patient's respiratory rate is less than 22. Systolic blood pressure is greater than 100. Patient has a qSOFA score of 0- Negative Sepsis Screen. Suicide/Homicide risk assessment- The patient admits to and/or has been reported to be having suicidal ideations. The patient reports that he/she has not been admitted to an inpatient mental health facility in the last 30 days. The patient reports that he/she has a recent or current history of substance abuse. The patient reports that he/she has no prior history of suicide attempt and/or organized plan. The patient reports that he/she has not experienced a significant life altering event in the last 30 days. The patient reports that he/she lacks adequate social support. The patient reports he/she has no significant chronic medical condition(s). Status: Patient is not a patient service rep or dependent. Transition of care: patient was not received from another setting of care. 09:27 Acuity: JUAN J Level 3 b1 09:27 Method Of Arrival: Walkin/Carried/Asstd mlb1 09:30 Red Flag criteria, patient assessed and taken directly to a bed. b1 Triage Assessment: 09:30 General: Appears in no apparent distress, Behavior is appropriate for age, cooperative. mlb1 Pain: Denies pain. HIV screening NA for this visit Offered previously. 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 none - PMHx: Anxiety; Depression; Schizo-Affective Disorder; - PSHx: none; - The history from nurses notes was reviewed: and I agree with what is documented. - Social history: Smoking status: Patient uses tobacco products, light tobacco smoker. No barriers to communication noted, The patient speaks fluent Micronesian, Speaks appropriately for age. - : The pt / caregiver states he / she is not on anticoagulants. Home medication list is obtained from the patient. - Hospitalizations: : No recent hospitalization is reported. - Exposure Risk Screening:: None identified. - Immunization history:: All immunizations up-to-date. - Family history: Not pertinent. - Social history:: the patient smokes cigarettes the patient drinks alcohol. Screenin:56 Screening information is obtained from the patient. Fall risk: No risks identified. mb9 Assistance ADL's: requires no assistance with activities of daily living. Abuse/DV Screen: The patient / caregiver reports he/she is: not in a situation that causes fear, pain or injury. Nutritional screening: No deficits noted. Advance Directives: There is no active DNR order. home support is adequate. Assessment: 11:15 General: Appears in no apparent distress, comfortable, Behavior is appropriate for age, mb9 cooperative, pt resting comfortably on the stretcher. security observing. . 12:26 General: Appears in no apparent distress, comfortable, Behavior is cooperative, mom in mb9 to see pt. security observing. . 14:58 General: Appears in no apparent distress, comfortable, Behavior is appropriate for age, mb9 cooperative. Respiratory: Airway is patent Respiratory effort is even, unlabored. 15:55 Reassessment: Patient appears in no apparent distress at this time. General: Appears mb9 comfortable, Behavior is appropriate for age, cooperative. Respiratory: Airway is patent Respiratory effort is even, unlabored. Mental Health Eval: 11:43 Mental health consult is initiated at 11:00. Status: The patient is not a ml4 patient service rep or dependent. [facility] Behavioral Health: The patient is not an established patient of [facility] Behavioral Health. Referral Information: Evaluation referral is generated by Alona Rios, [facility] \\T\\ TLS . . The patient was referred for evaluation because pt was at counseling appt today and expressed passive SI . Subjective: The patients chief complaint is pt states, "I'm not suicidal, but my therapist was concerned because I burned my finger 2 days ago." Pt reports suffering from vague SI for the past week due some on-going stressors. States she doesn't care if she lives or dies. 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 Pt also states she's lonely and feels like a burden to her family due to the above stressors. She denies active SI, however states, "we all and I wouldn't care if it happened to me now." Pt reports a hx of cutting, but nothing recent. Admits burning herself 2 days ago in the presence of a friend after realizing "my life is horrible." At that time she was about to cry, so decided to burn herself instead to redirect her thoughts. Pt denies SI currently, however continues to express passive SI at bedside. . Delusions are denied. Patient's mood is anxious, Hallucinations are denied. Mental Health history: depression, self -mutilation, Mental Health Admissions: Last admission to [facility] 03/10/16 and d/c 03/24/16 Current Outpatient Mental Health Services: Therapist / Agency: JEANNETTE Prado at [facility] . [facility], no psychiatrist due to non-compliance with tx. Pt has a hx of "no shows" . Current living environment is Family / Home Support: adequate The patient currently lives with his / her parents, . The patient is . Patient presents to Emergency Department with the following symptoms within the past 2 weeks: anger, anxiety, erratic appetite depressed mood, drug abuse, feelings of helplessness/hopelessness, non-compliance, pt expresses vague SI, no plan. . poor concentration, poor impulse control, relational problem, Patient has mutilated themselves by burning their left hand. Substance abuse: Patient uses of wine, 1 glass weekly. Patient uses tobacco 1/2 pack Frequency daily. Mental status exam: Patients appearance is appropriate, Patient's behavior is cooperative, Speech is normal. Affect is appropriate. Mood is appropriate. Hallucinations are Denied, "I just hear my inner voice." . Appetite is characterized by binges. Memory is good. Energy level is normal. Content of thought is depressive. due to vague SI Thought process is intact. Cognitive level is oriented to person, place, time and situation Patient's insight is poor. Judgement is poor. Rapport with interviewer is guarded. Suicidal Ideation is denied. Homicidal ideation is denied. Disposition: Medically cleared for disposition by Willy Barakat MD Psychiatric Consult is performed by phone with Dr Apoorva Gerber. [facility] Admission Criteria: The patient displays self-mutilative behavior. The patient requires continuous observation and/or control to protect self, others or property. The patient's care requires a multi-modal treatment plan under close supervision and coordination due to the complexity and severity of the patient's symptoms. The patient requires administration and monitoring of psychoactive medications by skilled medical providers due to the side effects of the psychoactive medications or significant dosage adjustments. Legal Status: Patient's legal status will be Emergency admission: . [place] Safe Act: [place] Safe Act is applicable to this patient. The patient poses a risk to self or other and the Nursing Flame Hardener has been notified. He/She will enter the patient's data. DSM-V Differential Diagnosis: Unspecified Depressive Disorder (F32.9). Narrative: Notice of Status and Rights, FAQ, and Bill of Rights was given at bedside. 13:10 Insurance Pre-Certification: Not Required, [employer] . Awaiting: transfer to [facility]. ml4 Vital Signs: 09:26 BP 129 / 80; Pulse 84; Resp 18; Temp 98.9; Pulse Ox 100% ; Weight 61.23 kg; Height 5 elp ft. 5 in. (165.10 cm); Pain 0/10; 13:18 BP 107 / 63; Pulse 57; Resp 19; Temp 97.4; Pulse Ox 99% on R/A; Pain 0/10; sew 15:55 BP 102 / 65; Pulse 78; Resp 17; Temp 98.3(TE); Pulse Ox 99% ; mb9 09:26 Body Mass Index 22.46 (61.23 kg, 165.10 cm) elp Vitals: 09:26 Log In Time: November 23, 2016 at 09:24. RN notified that patient meets Red Flag elp criteria. ED Course: 09:25 Patient visited by Jennifer Quinones PCA. elp 09:25 [facility] is Private Physician. elp 09:25 Patient moved to Waiting elp 09:26 NO PRIMARY PHYSICIAN, . is Private Physician. elp 09:26 Patient visited by Jennifer Quinones PCA. elp 09:27 Patient visited by Juan Gamez, RN. mlb1 09:28 Triage Initiated mlb1 09:30 Patient visited by Juan Gamez RN. mlb1 09:30 Patient moved to [facility] mlb1 09:38 Willy Barakat MD is Attending Physician. pc 09:39 Pt greeted and oriented to ED. Patient advised of names of staff involved in care, jrd location of call arreola, wait times and NPO status. Accompanied by Family Member, Patient has correct armband on for positive identification. Placed in psych safe attire. Bed in low position. Call light in reach. Side rails up X 1. Security observing. Property removed, secured in belongings bag- Placed in locker #5. Property :property removal is pending the arrival of a female observer. corner block cutter (pro) notified. Door closed. Noise minimized. Visitors limited. Report received from rn - psych. triage level #2, +si, cooperative \\T\\ this time. The patient / caregiver is instructed regarding the plan of care and ED course. Psych Safety Check: Location: Psych Room. 09:53 Patient visited by Janes Bran PCA. jrd 10:00 Patient visited by Willy Barakat MD. pc 10:14 Patient visited by Gonzalez Paniagua Security Aide. pjf 10:18 Acetaminophen Level Sent. jrd 10:18 Thyroid Stimulating Hormone Sent. jrd 10:18 Salicylate Level Sent. jrd 10:18 Liver Profile Sent. jrd 10:18 HCG,Serum Qualitative Sent. jrd 10:18 Ethyl Alcohol (ethanol) Sent. jrd 10:18 Drug Eval Toxicology ED Only Sent. jrd 10:18 Complete Blood Count Sent. jrd 10:19 Basic Metabolic Profile Sent. jrd 10:28 Patient visited by Gonzalez Paniagua Security Aide. pjf 10:43 Patient visited by Gonzalez Paniagua Security Aide. pjf 10:43 [facility] Payment Agreement was scanned into [employer] and attached to record. jls1 10:58 Patient visited by Gonzalez Paniagua Security Aide. pjf 11:11 Patient visited by Gonzalez Paniagua Security Aide. pjf 11:36 Patient visited by Orni Bowen. sew 11:36 Psych Safety Check: Location: Psych Room. Visual Assessment: Cooperative, pt talking sew with PSA. 11:49 Patient visited by Orin Bowen. sew 11:49 Psych Safety Check: Location: Psych Room. Visual Assessment: Cooperative. sew 12:06 Psych Safety Check: Location: Psych Room. Visual Assessment: Cooperative. sew 12:07 Patient visited by Orin Bowen. sew 12:14 Apoorva Gerber is Hospitalizing Provider. pc 12:23 Patient visited by Orin Bowen. sew 12:23 Psych Safety Check: Location: Psych Room. Visual Assessment: Cooperative. sew 12:52 Patient visited by Orin Bowen. sew 12:52 Patient visited by Orin Bowen. sew 12:52 Diet: Patient given regular meal. Psych Safety Check: Location: Psych Room. Visual sew Assessment: Cooperative. 13:07 Patient visited by Orin Bowen. sew 13:07 Psych Safety Check: Location: Psych Room. Visual Assessment: Cooperative. sew 13:09 [facility] Legal paperwork was scanned into [employer] and attached to record. ml4 13:10 Patient visited by Orin Bowen. sew 13:10 Diet: Tolerated well. sew 13:18 Patient visited by Orin Bowen. sew 13:44 Psych Safety Check: Location: Psych Room. Visual Assessment: Cooperative. sew 13:45 Patient visited by Orin Bowen. sew 13:56 Psych Safety Check: Location: Psych Room. Visual Assessment: Cooperative. sew 13:57 Patient visited by Orin Bowen. sew 14:07 Patient visited by Orin Bowen. sew 14:07 Psych Safety Check: Location: Psych Room. Visual Assessment: Cooperative. sew 14:22 Psych Safety Check: Location: Psych Room. Visual Assessment: Cooperative. sew 14:23 Patient visited by Orin Bowen. sew 14:37 Patient visited by Orin Bowen. sew 14:37 Psych Safety Check: Location: Psych Room. Visual Assessment: Cooperative. sew 14:48 Psych Safety Check: Location: Psych Room. Visual Assessment: Cooperative. sew 14:49 Patient visited by Orin Bowen. sew 15:05 Psych Safety Check: Location: Psych Room. Visual Assessment: Cooperative. mb9 15:15 Patient visited by Orin Bowen. sew 15:15 Psych Safety Check: Location: Psych Room. Visual Assessment: Cooperative. sew 15:27 Psych Safety Check: Location: Psych Room. Visual Assessment: Sleeping. sew 15:28 Patient visited by Orin Bowen. sew 15:39 Patient visited by Orin Bowen. sew 15:39 Psych Safety Check: Location: Psych Room. Visual Assessment: Cooperative. sew 15:53 [facility] Legal paperwork was scanned into [employer] and attached to record. ml4 15:56 No IV's were initiated during this patient's visit. No procedures done that require mb9 assistance. Attachments: 15:53 MHE Legal paperwork ml4 Order Results: Lab Order: Acetaminophen Level; SPEC'11/23/16 10:14 Test: ACETAMINOPHEN LEVEL; Value: < 2.0; Range: 10.0-30.0; Abnormal: Below low normal; Units: UG/ML; Status: F Lab Order: Basic Metabolic Profile; SPEC'11/23/16 10:14 Test: GLUCOSE, FASTING; Value: 85; Range: 70-105; Units: MG/DL; Status: F Test: BLOOD UREA NITROGEN; Value: 11; Range: 7-18; Units: MG/DL; Status: F Test: CREATININE FOR GFR; Value: 0.82; Range: 0.55-1.02; Units: MG/DL; Status: F Test: SODIUM LEVEL; Value: 141; Range: 136-145; Units: MEQ/L; Status: F Test: POTASSIUM SERUM; Value: 4.0; Range: 3.5-5.1; Units: MEQ/L; Status: F Test: CHLORIDE LEVEL; Value: 107; Range: 98-107; Units: MEQ/L; Status: F Test: CARBON DIOXIDE LEVEL; Value: 25; Range: 21-32; Units: MEQ/L; Status: F Test: ANION GAP; Value: 9; Range: 8-16; Units: MEQ/L; Status: F Test: CALCIUM LEVEL; Value: 8.6; Range: 8.5-10.1; Units: MG/DL; Status: F Lab Order: Complete Blood Count; SPEC'M 11/23/16 10:14 Test: WHITE BLOOD COUNT; Value: 4.6; Range: 4.0-10.0; Units: K/mm3; Status: F Test: RED BLOOD COUNT; Value: 4.22; Range: 4.00-5.40; Units: M/mm3; Status: F Test: HEMOGLOBIN; Value: 13.3; Range: 12.0-16.0; Units: g/dl; Status: F Test: HEMATOCRIT; Value: 38.2; Range: 36.0-47.0; Units: %; Status: F Test: MEAN CORPUSCULAR VOLUME; Value: 90.4; Range: 80.0-96.0; Units: fl; Status: F Test: MEAN CORPUSCULAR HEMOGLOBIN; Value: 31.4; Range: 27.0-33.0; Units: pg; Status: F Test: MEAN CORPUSCULAR HGB CONC; Value: 34.7; Range: 32.0-36.5; Units: g/dl; Status: F Test: RED CELL DISTRIBUTION WIDTH; Value: 12.1; Range: 11.5-14.5; Units: %; Status: F Test: PLATELET COUNT, AUTOMATED; Value: 242; Range: 150-450; Units: k/mm3; Status: F Lab Order: Drug Eval Toxicology ED Only; SPEC'M 11/23/16 10:14 Test: AMPHETAMINES LEVEL URINE; Value: NEGATIVE; Range: NEGATIVE; Status: F Test: BARBITURATES URINE; Value: NEGATIVE; Range: NEGATIVE; Status: F Test: BENZODIAZEPINES URINE; Value: NEGATIVE; Range: NEGATIVE; Status: F Test: CANNABINOIDS URINE; Value: POSITIVE; Range: NEGATIVE; Abnormal: Above high normal; Status: F Test: COCAINE METABOLITE URINE; Value: NEGATIVE; Range: NEGATIVE; Status: F Test: METHADONE URINE; Value: NEGATIVE; Range: NEGATIVE; Status: F Test: OPIATES URINE; Value: NEGATIVE; Range: NEGATIVE; Status: F Test: TRICYCLIC ANTIDEPRESS URINE; Value: NEGATIVE; Range: NEGATIVE; Status: F Test Note: ; FALSE POSITIVE RESULTS CAN BE CAUSED BY THE USE OF PANTOPRAZOLE (PROTONIX). Lab Order: Ethyl Alcohol (ethanol); SPEC'M 11/23/16 10:14 Test: ETHYL ALCOHOL (ETHANOL); Value: < 0.003; Range: 0.000-0.010; Units: %; Status: F Lab Order: HCG,Serum Qualitative; SPEC'M 11/23/16 10:14 Test: HCG, SERUM QUALITATIVE; Value: NEGATIVE; Range: NEGATIVE; Status: F Lab Order: Liver Profile; SPEC'M 11/23/16 10:14 Test: AST/SGOT; Value: 9; Range: 15-37; Abnormal: Below low normal; Units: U/L; Status: F Test: ALT/SGPT; Value: 15; Range: 12-78; Units: U/L; Status: F Test: ALKALINE PHOSPHATASE; Value: 89; Range: 45-117; Units: U/L; Status: F Test: BILIRUBIN,TOTAL; Value: 0.5; Range: 0.2-1.0; Units: MG/DL; Status: F Test: BILIRUBIN,DIRECT; Value: 0.2; Range: 0.0-0.2; Units: MG/DL; Status: F Test: TOTAL PROTEIN; Value: 7.8; Range: 6.4-8.2; Units: GM/DL; Status: F Test: ALBUMIN; Value: 4.4; Range: 3.2-5.2; Units: GM/DL; Status: F Test: ALBUMIN/GLOBULIN RATIO; Value: 1.29; Range: 1.00-1.93; Status: F Lab Order: Salicylate Level; SPEC'M 11/23/16 10:14 Test: SALICYLATE LEVEL; Value: 2.1; Range: 5.0-30.0; Abnormal: Below low normal; Units: MG/DL; Status: F Lab Order: Thyroid Stimulating Hormone; SPEC'M 11/23/16 10:14 Test: THYROID STIMULATING HORMONE; Value: 0.522; Range: 0.463-3.98; Units: uIU/ML; Status: F Outcome: 12:14 Decision to Hospitalize by Provider. pc 15:56 Discharge Assessment: Patient awake, alert and oriented x 3. No cognitive and/or mb9 functional deficits noted. Patient verbalized understanding of disposition instructions. patient administered narcotics - no. The following High Risk Discharge criteria are identified: None. Discharged to home ambulatory. Condition: good Condition: stable Condition: improved. No special radiology studies were completed. 16:02 Patient left the ED. mb9 Signatures: Willy Barakat MD MD pc Ferendzo, Paul, Juan Scales RN RN mlb1 Bety Martin, PSA PSA ml4 Andrés, Jennifer Hines, EMERGENCY RESPONSE TECHNICIAN EMERGENCY RESPONSE TECHNICIAN Janes Robertson, EMERGENCY RESPONSE TECHNICIAN EMERGENCY RESPONSE TECHNICIAN Juan Medel RN RN mb9 Vonda Mcclures1 Corrections: (The following items were deleted from the chart) 14:58 11:43 Referral Information: Evaluation referral is generated by Alona Rios, [facility] ml4 \\T\\ TLS #[phone]. . The patient was referred for evaluation because pt was counseling appt today and expressed passive SI . ml4 Chart Complete MTDD
[2016-11-25 18:12] VITALS: BP 112/69
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
[2016-11-25] MEDS: lamoTRIgine 25 MG TAB PO SCH (20:24)
[2016-11-25] MEDS: QUEtiapine FUMARATE 25 MG TAB PO PRN (21:57)
[2016-11-26 06:45] VITALS: BP 100/70
[2016-11-26] MEDS: NICOTINE 7 MG/24 HR TRANSDERMAL TD SCH (08:21)
[2016-11-26] MEDS: OXcarbazepine 150 MG TAB PO SCH ×2 (12:04→21:42)
[2016-11-26] MEDS: IBUPROFEN 400 MG TAB PO PRN ×2 (12:05→23:19)
[2016-11-26 18:00] VITALS: BP 122/73
[2016-11-26] MEDS: lamoTRIgine 25 MG TAB PO SCH (21:42)
[2016-11-26] MEDS: QUEtiapine FUMARATE 25 MG TAB PO PRN (23:20)
[2016-11-27 06:14] VITALS: BP 90/54
--- NOTE | 2016-11-27 08:24 | IPN ---
DATE: 11/26/2016 MEDICATIONS: - Lamictal 25 mg by mouth at bedtime - Seroquel 25 mg at bedtime as needed for insomnia - Trileptal 75 mg by mouth twice a day SUBJECTIVE: "I thought I could not tolerate the Trileptal but then I felt better." OBJECTIVE: No major changes from yesterday. Patient continues depressed and anxious, somewhat labile, is denying side effects from current medication. She stated that she refused to take the Trileptal because she thought that she was allergic, but later on, she believed she felt better and wants to give it a try. No evidence of psychotic features. No auditory or visual hallucinations or delusions. The patient has low insight. MENTAL STATUS EXAMINATION: Patient is dressed in [facility]. Patient is cooperative during examination. Fair eye contact. Speech is slow and monotone. Mood is depressed and anxious. Affect is labile and congruent with mood. No evidence of delusions or hallucinations. Short and long-term memory are intact. Patient is fully oriented. Associations are intact. Thinking is logical. Thought content is appropriate. Patient is able to contract for safety and denies suicidal or homicidal ideation during the interview. Insight and judgment is limited. ASSESSMENT: Unspecified depressive disorder. PLAN: Restart 1. Trileptal 75 mg by mouth twice a day. 2. Continue Lamictal 25 mg by mouth at bedtime. 3. Continue Seroquel 25 mg by mouth at bedtime as needed for insomnia. 4. Continue medication management, individual and group therapy.
[2016-11-27] MEDS: NICOTINE 7 MG/24 HR TRANSDERMAL TD SCH (09:00)
[2016-11-27] MEDS: OXcarbazepine 150 MG TAB PO SCH ×2 (09:07→21:04)
[2016-11-27 18:00] VITALS: BP 137/68
[2016-11-27] MEDS: IBUPROFEN 400 MG TAB PO PRN (18:33)
[2016-11-27] MEDS: lamoTRIgine 25 MG TAB PO SCH (21:05)
[2016-11-27] MEDS: QUEtiapine FUMARATE 25 MG TAB PO PRN (23:06)
[2016-11-28 06:00] VITALS: BP 121/70
--- NOTE | 2016-11-28 06:30 | IPN ---
DATE OF VISIT: 11/27/2016 SUBJECTIVE: "I don't feel any benefit from the medication." "I still have mood swings." OBJECTIVE: No major changes from yesterday. The patient reports mood swings throughout the day; however there is no evidence that this is related to the medication. I discussed this issue with the patient and she is willing to continue taking it. No evidence of psychotic symptoms. No auditory or visual hallucinations. MENTAL STATUS EXAMINATION: The patient is dressed in [facility]. The patient is repetitive during the exam, speech is slow and monotone. Mood is depressed and anxious. Affect is labile. No evidence of delusions or hallucinations. Short and truck terminal manager memory are intact. The patient is fully oriented. Associations are intact. Thinking is logical. Thought content is appropriate. The patient is denying suicidal or homicidal ideations during the interview. Insight and judgment is limited. ASSESSMENT: 1. Major depressive disorder, recurrent, severe. 2. Rule out psychosis. MEDICATIONS: - Trileptal 150 mg by mouth - Lamictal 25 mg by mouth nightly - Seroquel 25 mg by mouth nightly Continue medical management, individual and group therapy.
[2016-11-28] MEDS: NICOTINE 7 MG/24 HR TRANSDERMAL TD SCH (08:23)
[2016-11-28] MEDS: OXcarbazepine 150 MG TAB PO SCH ×2 (08:23→21:32)
[2016-11-28 18:00] VITALS: BP 118/70
[2016-11-28] MEDS: lamoTRIgine 25 MG TAB PO SCH (21:32)
[2016-11-28] MEDS: QUEtiapine FUMARATE 25 MG TAB PO PRN (22:47)
--- NOTE | 2016-11-28 23:43 | IPNPDOC ---
[facility] Progress Note Progress Note DATE OF VISIT: 11/28/2016 SUBJECTIVE: Patient displaying more insight after interview. Patient disclosed she believes her primary issue is her need to feel in control. This current lack of control(school performance, not getting a job as soon as she thought, has again triggered agitation, depression, and SI. She currently denies SI/HI and AH/VH. No med s/e reported. Vitals: WNL MENTAL STATUS EXAMINATION: The patient is dressed in home clothing, in NAD. speech: spontaneous, RRR. Mood is depressed and anxious. Affect is anxious. No evidence of delusions or hallucinations. Short and marine oil terminal superintendent memory are intact. Patient is alert and oriented. Associations are intact. Thinking is logical. Thought content is appropriate. The patient is denying suicidal or homicidal ideations during the interview. Insight and judgment is limited. ASSESSMENT: 1. Major depressive disorder, recurrent, severe. 2. r/o Bipolar 2 d/o Plan: - Trileptal 150 mg by mouth bid. - Lamictal 25 mg by mouth nightly. - Seroquel 25 mg by mouth nightly prn anxiety/insomnia. -Continue medical management, individual and group therapy. Vital Signs/I&O Vital Signs Date Time Temp Pulse Resp B/P Pulse Ox O2 Delivery O2 Flow Rate FiO2 11/28/16 18:00 98.2 79 16 118/70 Current Medications Current Medications Al Hydrox/Mg Hydrox/Simethicone (Mylanta) 30 ml Q4HP PRN PO HEARTBURN/ INDIGESTION; Start 11/23/16 at 18:30; Stop 12/23/16 at 18:29 Home Med (Med Rec Complete!) ASDIRECTED XX ; Start 11/23/16 at 13:00; Stop at 13:00; Status DC Ibuprofen (Advil) 400 mg Q6HP PRN PO PAIN Last administered on 11/27/16 18:33 ; Start 11/23/16 at 18:30; Stop 12/23/16 at 18:29 Lamotrigine (LaMICtal) 25 mg QHS PO Last administered on 11/28/16 21:32; Start 11/25/16 at 21:00; Stop 12/25/16 at 20:59 Magnesium Hydroxide (Milk Of Magnesia) 30 ml DAILYPRN PRN PO CONSTIPATION; Start 11/23/16 at 18:30; Stop 12/23/16 at 18:29 Nicotine (Nicoderm Cq 7 Mg) 1 patch DAILY TD Last administered on 11/24/16 11: 37; Start 11/24/16 at 09:00; Stop 12/24/16 at 08:59 Oxcarbazepine (Trileptal) 75 mg BID PO Last administered on 11/25/16 12:18; Start 11/25/16 at 09:00; Stop 11/25/16 at 17:45; Status DC Oxcarbazepine (Trileptal) 75 mg BID PO Last administered on 11/27/16 09:07; Start 11/26/16 at 09:00; Stop 11/27/16 at 12:02; Status DC Oxcarbazepine (Trileptal) 150 mg BID PO Last administered on 11/28/16 21:32; Start 11/27/16 at 21:00; Stop 12/27/16 at 20:59 Quetiapine Fumarate (SEROquel) 25 mg QHS PRN PO anxiety/sleep Last administered on 11/28/16 22:47; Start 11/25/16 at 12:00; Stop 12/25/16 at 11:59 Trazodone HCl (Desyrel) 50 mg QHSP PRN PO INSOMNIA Last administered on 21:08; Start 11/23/16 at 18:30; Stop 11/25/16 at 11:57; Status DC Allergies Coded Allergies: No Known Allergies (Unverified , 03/20/16) JACQUELINE MALDONADO MD Nov 28, 2016 23:43
[2016-11-29 06:24] VITALS: BP 110/66
[2016-11-29] MEDS: NICOTINE 7 MG/24 HR TRANSDERMAL TD SCH (08:21)
[2016-11-29] MEDS: IBUPROFEN 400 MG TAB PO PRN (08:22)
[2016-11-29] MEDS: OXcarbazepine 150 MG TAB PO SCH ×2 (08:22→21:08)
[2016-11-29] MEDS: hydrOXYzine 25 MG TAB PO PRN (16:04)
[2016-11-29 18:00] VITALS: BP 128/88
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
[2016-11-29] MEDS: lamoTRIgine 25 MG TAB PO SCH (21:07)
[2016-11-29] MEDS: QUEtiapine FUMARATE 50 MG TAB PO PRN (23:18)
[2016-11-30 06:26] VITALS: BP 131/76
[2016-11-30] MEDS: NICOTINE 7 MG/24 HR TRANSDERMAL TD SCH (09:00)
[2016-11-30] MEDS: OXcarbazepine 150 MG TAB PO SCH ×2 (09:11→20:45)
[2016-11-30] MEDS: hydrOXYzine 25 MG TAB PO PRN (11:55)
[2016-11-30] MEDS: IBUPROFEN 400 MG TAB PO PRN ×2 (17:04→23:12)
--- NOTE | 2016-11-30 17:19 | IPNPDOC ---
[facility] Progress Note Progress Note DATE OF SERVICE: 11/30/16 HISTORY: Technical Operations Manager met with patient today to evaluate treatment progress on inpatient unit. Patient indicates she is feeling better today, adds she was able to take hydroxyzine PRN medication yesterday and distract herself after becoming distressed during treatment group. Patient indicates she became upset again this morning when reportedly abruptly awoken and staff entered room to speak with patient's roommate. Patient indicates she, again, took hydroxyzine PRN with good effect reported. Patient was advised to attempt to process emotions prior to taking PRN medication in effort continue to develop active coping mechanisms, patient verbalizes understanding. At time of interaction patient denied having urge to engage in self-injurious behavior, further denied suicidal and homicidal ideation. Patient reported moderate levels of anxiety and depression, denied audiovisual hallucinations. Patient has been visible, cooperative staff, attending groups, and indicates she continues to benefit from unit programming. Patient indicated she believes medication is helping to stabilize mood, denies medication side effects. Patient reports improved sleep with recent dose increase to Seroquel, denies nighttime waking, denies nightmares. Patient denies challenges with appetite, concentration, or energy level, reports reduced mood lability and denies agitation. Patient makes request for more time for access access to computer to complete schoolwork assignments. Technical Operations Manager redirected patient to discuss with nursing who will evaluate need for additional time. VITAL SIGNS: Please see below. NEW TEST RESULTS: No new results. Labs on admission indicate low AST, hCG negative. UDS positive for cannabinoids 11/24/16 EKG normal sinus rhythm CURRENT MEDICATIONS: See below. MENTAL STATUS EXAMINATION: Patient is a 21 -year-old pending divorce, unemployed female, who is pleasant and cooperative with adequate personal hygiene, dressed in personal clothing, makes good eye contact, appears stated age. Speech: Is less monotone today, generally regular rate, rhythm, volume and is spontaneous Thought processes: Clear, goal-directed Rate of thoughts: Within normal limits Thought content: Logical. Abstract reasoning: Appears intact Associations: Intact. Abnormal or psychotic thoughts: denies hallucinations, Delusions, Preoccupation with violence, Homicidal or suicidal ideation, and Obsessions.] Judgment: Poor, some improvement Insight: Poor, some improvement Oriented to: Time, place and person. Recent and Remote Memory: Appears intact. Attention Span and Concentration: Fair. Language: Normal. Fund of knowledge: Adequate Mood: "I'm okay, the staff just really upset me this morning when he woke me up. " Affect: Constricted but brightens at times, congruent with affect DIAGNOSES: Unspecified mood disorder, cannabis use disorder, rule out anxiety disorder, rule out borderline personality disorder ASSESSMENT: Patient continues to adjust to unit, has been attending groups, is cooperative with staff, has not been a behavioral management challenge. Patient denies suicidal and homicidal ideation, and is able to effectively engage in the safety planning process, verbalizes awareness of how to access support services on the unit if needed. Patient is requesting to continue titration of mood stabilizer and denies medication side effects. Patient is also requesting to continue Seroquel at 50 mg dose and reports medication effectiveness. Patient also indicates addition of hydroxyzine for PRN use to address intermittent symptoms of anxiety is beneficial. Patient has been advised to minimize use of as needed anxiolytic, will monitor use and address with patient if becomes necessary. Will continue to monitor patient's response to mood stabilizer and adjust as tolerated. Will also continue to monitor patient's adjustment to unit, safety, and will evaluate patient for discharge readiness. Patient reiterates her plan to discharge back to the home of her parents and reconnect with outpatient services for case management, psychotherapy, and medication management. MANAGEMENT PLAN: MANAGEMENT PLAN: Continue Trileptal 150 mg by mouth bid, Lamictal 25 mg by mouth nightly, Seroquel to 50 mg po hs PRN anxiety/insomnia, hydroxyzine 25 mg po q 6 hours PRN anxiety. Maintain safety precautions Patient to attend groups and participate in unit programming to develop coping strategies Engage patient in discharge planning process and arrange meeting with support system to ensure safe discharge planning when appropriate In addition to outpatient case management, psychotherapy, and medication management, encourage patient to consider participation in addiction program Patient to follow up with PCM upon discharge Vital Signs Vital Signs Date Time Temp Pulse Resp B/P Pulse Ox O2 Delivery O2 Flow Rate FiO2 11/30/16 06:26 97.7 114 18 131/76 Current Medications Current Medications Al Hydrox/Mg Hydrox/Simethicone (Mylanta) 30 ml Q4HP PRN PO HEARTBURN/ INDIGESTION; Start 11/23/16 at 18:30; Stop 12/23/16 at 18:29 Home Med (Med Rec Complete!) ASDIRECTED XX ; Start 11/23/16 at 13:00; Stop at 13:00; Status DC Hydroxyzine HCl (Vistaril) 25 mg Q6HP PRN PO ANXIETY Last administered on 11:55; Start 11/29/16 at 16:00; Stop 12/29/16 at 15:59 Ibuprofen (Advil) 400 mg Q6HP PRN PO PAIN Last administered on 11/29/16 08:22 ; Start 11/23/16 at 18:30; Stop 12/23/16 at 18:29 Lamotrigine (LaMICtal) 25 mg QHS PO Last administered on 11/29/16 21:07; Start 11/25/16 at 21:00; Stop 12/25/16 at 20:59 Magnesium Hydroxide (Milk Of Magnesia) 30 ml DAILYPRN PRN PO CONSTIPATION; Start 11/23/16 at 18:30; Stop 12/23/16 at 18:29 Nicotine (Nicoderm Cq 7 Mg) 1 patch DAILY TD Last administered on 11/24/16 11: 37; Start 11/24/16 at 09:00; Stop 12/24/16 at 08:59 Oxcarbazepine (Trileptal) 75 mg BID PO Last administered on 11/25/16 12:18; Start 11/25/16 at 09:00; Stop 11/25/16 at 17:45; Status DC Oxcarbazepine (Trileptal) 75 mg BID PO Last administered on 11/27/16 09:07; Start 11/26/16 at 09:00; Stop 11/27/16 at 12:02; Status DC Oxcarbazepine (Trileptal) 150 mg BID PO Last administered on 11/30/16 09:11; Start 11/27/16 at 21:00; Stop 12/27/16 at 20:59 Quetiapine Fumarate (SEROquel) 25 mg QHS PRN PO anxiety/sleep Last administered on 11/28/16 22:47; Start 11/25/16 at 12:00; Stop 11/29/16 at 15:47 ; Status DC Quetiapine Fumarate (SEROquel) 50 mg QHS PRN PO anxiety/sleep Last administered on 11/29/16 23:18; Start 11/29/16 at 15:45; Stop 12/29/16 at 15:44 Trazodone HCl (Desyrel) 50 mg QHSP PRN PO INSOMNIA Last administered on 21:08; Start 11/23/16 at 18:30; Stop 11/25/16 at 11:57; Status DC Allergies Coded Allergies: No Known Allergies (Unverified , 03/20/16) Lora Triana Nov 30, 2016 17:18
[2016-11-30 18:13] VITALS: BP 119/58
[2016-11-30] MEDS: lamoTRIgine 25 MG TAB PO SCH (20:45)
[2016-11-30] MEDS: QUEtiapine FUMARATE 50 MG TAB PO PRN (23:12)
[2016-12-01 06:39] VITALS: BP 123/60
[2016-12-01] MEDS: NICOTINE 7 MG/24 HR TRANSDERMAL TD SCH ×2 (09:00→16:35)
[2016-12-01] MEDS: OXcarbazepine 150 MG TAB PO SCH ×2 (09:14→21:30)
[2016-12-01] MEDS: hydrOXYzine 25 MG TAB PO PRN (09:56)
[2016-12-01] MEDS ORDERED: NICO7PA TD (12:37)
[2016-12-01 18:00] VITALS: BP 134/75
--- NOTE | 2016-12-01 18:25 | IPNPDOC ---
[facility] Progress Note Progress Note DATE: 12/01/16 HISTORY: Singe Winder met with patient today to evaluate treatment progress on inpatient unit. Patient indicates she is feeling better today, adds she again took hydroxyzine PRN medication today after her nurse "said that I refuse to meet with her, while I didn't refuse to meet with her I just said 'no' when she asked me if I wanted to meet." Singe Winder and patient discussed importance of patient not relying on PRN medication in order to cope with symptoms of anxiety and encouraged patient to focus on developing coping mechanisms. Patient verbalizes understanding and was in agreement of discontinuation of hydroxyzine in preparation for discharge early next week. Singe Winder informed patient that discharge is likely for early next week to which patient responded by stating " I still have issues but, yes, I want to discharge back to live with my parents. " Patient describes relationship with parents as "pretty good, it's good when I' m in the hospital because my mother gives him more things and it seems like she cares more." Patient rates current anxiety level 2/10, depression 5/10, denies suicidal and homicidal ideation, denies audiovisual hallucinations, and denies urge to engage in self-injurious behavior. Patient has been visible, otherwise cooperative staff, attending groups, and indicates she continues to benefit from unit programming. Patient indicated she believes medication continues to help stabilize mood, denies medication side effects. Patient reports improved sleep with Seroquel, denies nighttime waking, denies nightmares. Patient denies challenges with appetite, concentration, or energy level, indicates mood is generally stable and denies impulsivity and agitation. Patient indicates mother visits with some regularity and feels visitation goes well. VITAL SIGNS: Please see below. NEW TEST RESULTS: No new results. Labs on admission indicate low AST, hCG negative. UDS positive for cannabinoids 11/24/16 EKG normal sinus rhythm CURRENT MEDICATIONS: See below. MENTAL STATUS EXAMINATION: Patient is a 21 -year-old pending divorce, unemployed female, who is pleasant and cooperative with adequate personal hygiene, dressed in personal clothing, makes good eye contact, appears stated age. Speech: Is less monotone today, generally regular rate, rhythm, volume and is spontaneous Thought processes: Clear, goal-directed Rate of thoughts: Within normal limits Thought content: Logical. Abstract reasoning: Appears intact Associations: Intact. Abnormal or psychotic thoughts: denies hallucinations, Delusions, Preoccupation with violence, Homicidal or suicidal ideation, and Obsessions.] Judgment: Poor, some improvement Insight: Poor, some improvement Oriented to: Time, place and person. Recent and Remote Memory: Appears intact. Attention Span and Concentration: Fair. Language: Normal. Fund of knowledge: Adequate Mood: "I'm okay today, just frustrated with staff when they don't respect my opinion." Affect: Less constriction today, brightens at times, congruent with affect DIAGNOSES: Unspecified mood disorder, cannabis use disorder, rule out anxiety disorder, rule out borderline personality disorder ASSESSMENT: Patient continues to adjust to unit, has been attending groups, is generally cooperative with staff, has not been a behavioral management challenge. The patient indicates she still has "issues," patient has been observed to be walking the hallways with other young male patient, smiling, joking, exhibiting no signs of acute distress. Per merchandise coordinator patient has not signed consents to speak with parents about discharge planning for TLS to ensure that services are in place. Patient indicates today medications are effective and makes no request for dosing adjustments, denies medication side effects. Patient denies suicidal and homicidal ideation and is able to effectively engage in the safety planning process, verbalizes awareness of how to access support services on the unit if needed. Patient has been using hydroxyzine PRN daily, the last 2 days to address what appear to be emotional slights, is in agreement today with discontinuation of medication in order to encourage the development of effective coping skills and discourage dependence on anxiolytic. Will continue to monitor patient's response to mood stabilizer and adjust as tolerated or needed. Will also continue to monitor patient's adjustment to unit, safety, and will evaluate patient for discharge readiness. Patient reiterates her plan to discharge back to the home of her parents and reconnect with outpatient services for case management, psychotherapy, and medication management. Patient was asked by headline writer date of entry to send ROIs merchandise coordinator to speak with family and TLS service providers. Patient has agreed to sign consents. MANAGEMENT PLAN: MANAGEMENT PLAN: Continue Trileptal 150 mg by mouth bid, Lamictal 25 mg by mouth nightly, Seroquel to 50 mg po hs PRN anxiety/insomnia. Discontinue hydroxyzine 25 mg po q 6 hours PRN anxiety. Maintain safety precautions Patient to attend groups and participate in unit programming to develop coping strategies Engage patient in discharge planning process and arrange meeting with support system to ensure safe discharge planning when appropriate In addition to outpatient case management, psychotherapy, and medication management, encourage patient to consider participation in addiction program Patient to follow up with PCM upon discharge TIME SPENT: 25 minutes. Vital Signs Vital Signs Date Time Temp Pulse Resp B/P Pulse Ox O2 Delivery O2 Flow Rate FiO2 12/01/16 06:39 98.9 84 16 123/60 Current Medications Current Medications Al Hydrox/Mg Hydrox/Simethicone (Mylanta) 30 ml Q4HP PRN PO HEARTBURN/ INDIGESTION; Start 11/23/16 at 18:30; Stop 12/23/16 at 18:29 Home Med (Med Rec Complete!) ASDIRECTED XX ; Start 11/23/16 at 13:00; Stop at 13:00; Status DC Hydroxyzine HCl (Vistaril) 25 mg Q6HP PRN PO ANXIETY Last administered on 09:56; Start 11/29/16 at 16:00; Stop 12/01/16 at 12:37; Status DC Ibuprofen (Advil) 400 mg Q6HP PRN PO PAIN Last administered on 11/30/16 23:12 ; Start 11/23/16 at 18:30; Stop 12/23/16 at 18:29 Lamotrigine (LaMICtal) 25 mg QHS PO Last administered on 11/30/16 20:45; Start 11/25/16 at 21:00; Stop 12/25/16 at 20:59 Magnesium Hydroxide (Milk Of Magnesia) 30 ml DAILYPRN PRN PO CONSTIPATION; Start 11/23/16 at 18:30; Stop 12/23/16 at 18:29 Nicotine (Nicoderm Cq 7 Mg) 1 patch DAILY TD Last administered on 12/01/16 16: 35; Start 11/24/16 at 09:00; Stop 12/24/16 at 08:59 Oxcarbazepine (Trileptal) 75 mg BID PO Last administered on 11/25/16 12:18; Start 11/25/16 at 09:00; Stop 11/25/16 at 17:45; Status DC Oxcarbazepine (Trileptal) 75 mg BID PO Last administered on 11/27/16 09:07; Start 11/26/16 at 09:00; Stop 11/27/16 at 12:02; Status DC Oxcarbazepine (Trileptal) 150 mg BID PO Last administered on 12/01/16 09:14; Start 11/27/16 at 21:00; Stop 12/27/16 at 20:59 Quetiapine Fumarate (SEROquel) 25 mg QHS PRN PO anxiety/sleep Last administered on 11/28/16 22:47; Start 11/25/16 at 12:00; Stop 11/29/16 at 15:47 ; Status DC Quetiapine Fumarate (SEROquel) 50 mg QHS PRN PO anxiety/sleep Last administered on 11/30/16 23:12; Start 11/29/16 at 15:45; Stop 12/29/16 at 15:44 Trazodone HCl (Desyrel) 50 mg QHSP PRN PO INSOMNIA Last administered on 21:08; Start 11/23/16 at 18:30; Stop 11/25/16 at 11:57; Status DC Allergies Coded Allergies: No Known Allergies (Unverified , 03/20/16) Lora Triana Dec 01, 2016 18:25
[2016-12-01] MEDS: lamoTRIgine 25 MG TAB PO SCH (21:30)
[2016-12-01] MEDS: IBUPROFEN 400 MG TAB PO PRN (22:49)
[2016-12-02] MEDS: QUEtiapine FUMARATE 50 MG TAB PO PRN (00:54)
[2016-12-02 06:47] VITALS: BP 140/92
[2016-12-02] MEDS: NICOTINE 7 MG/24 HR TRANSDERMAL TD SCH (08:38)
[2016-12-02] MEDS: OXcarbazepine 150 MG TAB PO SCH ×2 (08:38→21:08)
--- NOTE | 2016-12-02 11:17 | IPNPDOC ---
[facility] Progress Note Progress Note DATE OF SERVICE: 12/02/16 HISTORY: Patient Transporter met with patient today to evaluate treatment progress on inpatient unit. Patient indicates she continues to experience reduced symptoms of anxiety and depression, has been able to cope with personal and social challenges on unit without the use of PRN hydroxyzine. Patient makes fleeting mention of yesterday's interaction with staff where in she felt her opinion was not being respected, however, patient is less fixated and easily redirected. Agent continues to be visible, walks hallways with select male peer, is attending groups, indicates she has been working on developing effective coping mechanisms. Patient verbalizes awareness that discharge is likely for early next week, indicates he currently feels discharge target date is realistic. Patient denies suicidal and homicidal ideation, denies audiovisual hallucinations, and denies urge to engage in self-injurious behavior. Patient has been visible, otherwise cooperative staff, attending groups, and indicates she continues to benefit from unit programming. Patient states she believes medication continues to help stabilize mood, initially denies medication side effects then notes "I feel like it makes it harder for me to focus." Patient states she observed reduced ability to focus starting yesterday, was advised to monitor for changes/worsening of symptoms.. Patient reports improved sleep with Seroquel, denies nighttime waking, denies nightmares. Patient denies challenges with appetite, concentration, or energy level, indicates mood is generally stable and denies impulsivity and agitation. Patient reiterates mother co ntinues to visit with some regularity and feels visits go well. VITAL SIGNS: Please see below. NEW TEST RESULTS: No new results. Labs on admission indicate low AST, hCG negative. UDS positive for cannabinoids 11/24/16 EKG normal sinus rhythm CURRENT MEDICATIONS: See below. 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 Speech: Is less monotone today, generally regular rate, rhythm, volume and is spontaneous Thought processes: Clear, goal-directed Rate of thoughts: Within normal limits Thought content: Logical. Abstract reasoning: Appears intact Associations: Intact. Abnormal or psychotic thoughts: denies hallucinations, Delusions, Preoccupation with violence, Homicidal or suicidal ideation, and Obsessions.] Judgment: Poor, some improvement Insight: Poor, some improvement Oriented to: Time, place and person. Recent and Remote Memory: Appears intact. Attention Span and Concentration: Fair. Language: Normal. Fund of knowledge: Adequate Mood: "I'm all right. I just wish staff respected me more." Affect: Less constriction today, brightens at times, congruent with affect DIAGNOSES: Unspecified mood disorder, cannabis use disorder, rule out anxiety disorder, rule out borderline personality disorder ASSESSMENT: Patient is adjusting to unit and participating in unit programming, remains cooperative, and has not an a behavior management challenged. Patient is again today observed to be walking the hallways with a young male patient, smiling, joking, exhibiting no signs of distress. Patient has reportedly now agreed to sign consents for discharge were needed to speak with parent and TLS services providers, and patient is aware that discharge arrangements will be made with discharge likely to take place early next week. Patient reiterates today that medications are effective and makes no request for dosing adjustments , denies medication side effects. Patient denies suicidal and homicidal ideation and is able to effectively engage in the safety planning process, verbalizes awareness of how to access support services on the unit if needed. Patient is adjusting well to not using hydroxyzine PRN daily for anxiety, remains in agreement with discontinuation of medication in order to encourage the development of effective coping skills and discourage dependence on anxiolytic. Will continue to monitor patient's response to mood stabilizer with plan to titrate Lamictal as tolerated/needed by patient with eventual taper of Trileptal after patient is stabilized on Lamictal. Continue to monitor need for addition of low dose antidepressant, patient denies need at this time. Will also continue to monitor patient's adjustment to unit, safety, and will evaluate patient for discharge readiness. Patient reiterates her plan to discharge back to the home of her parents and reconnect with outpatient services for case management, psychotherapy, and medication management. MANAGEMENT PLAN: MANAGEMENT PLAN: Continue Trileptal 150 mg by mouth bid, Lamictal 25 mg by mouth nightly, Seroquel to 50 mg po hs PRN anxiety/insomnia. Monitor need for addition of low-dose antidepressant Maintain safety precautions Patient to attend groups and participate in unit programming to develop coping strategies Engage patient in discharge planning process and arrange meeting with support system to ensure safe discharge planning when appropriate In addition to outpatient case management, psychotherapy, and medication management, encourage patient to consider participation in addiction program Patient to follow up with PCM upon discharge TIME SPENT: 35 minutes. Vital Signs Vital Signs Date Time Temp Pulse Resp B/P Pulse Ox O2 Delivery O2 Flow Rate FiO2 12/02/16 06:47 97.6 88 17 140/92 Current Medications Current Medications Al Hydrox/Mg Hydrox/Simethicone (Mylanta) 30 ml Q4HP PRN PO HEARTBURN/ INDIGESTION; Start 11/23/16 at 18:30; Stop 12/23/16 at 18:29 Home Med (Med Rec Complete!) ASDIRECTED XX ; Start 11/23/16 at 13:00; Stop at 13:00; Status DC Hydroxyzine HCl (Vistaril) 25 mg Q6HP PRN PO ANXIETY Last administered on 09:56; Start 11/29/16 at 16:00; Stop 12/01/16 at 12:37; Status DC Ibuprofen (Advil) 400 mg Q6HP PRN PO PAIN Last administered on 12/01/16 22:49 ; Start 11/23/16 at 18:30; Stop 12/23/16 at 18:29 Lamotrigine (LaMICtal) 25 mg QHS PO Last administered on 12/01/16 21:30; Start 11/25/16 at 21:00; Stop 12/25/16 at 20:59 Magnesium Hydroxide (Milk Of Magnesia) 30 ml DAILYPRN PRN PO CONSTIPATION; Start 11/23/16 at 18:30; Stop 12/23/16 at 18:29 Nicotine (Nicoderm Cq 7 Mg) 1 patch DAILY TD Last administered on 12/01/16 16: 35; Start 11/24/16 at 09:00; Stop 12/24/16 at 08:59 Oxcarbazepine (Trileptal) 75 mg BID PO Last administered on 11/25/16 12:18; Start 11/25/16 at 09:00; Stop 11/25/16 at 17:45; Status DC Oxcarbazepine (Trileptal) 75 mg BID PO Last administered on 11/27/16 09:07; Start 11/26/16 at 09:00; Stop 11/27/16 at 12:02; Status DC Oxcarbazepine (Trileptal) 150 mg BID PO Last administered on 12/02/16 08:38; Start 11/27/16 at 21:00; Stop 12/27/16 at 20:59 Quetiapine Fumarate (SEROquel) 25 mg QHS PRN PO anxiety/sleep Last administered on 11/28/16 22:47; Start 11/25/16 at 12:00; Stop 11/29/16 at 15:47 ; Status DC Quetiapine Fumarate (SEROquel) 50 mg QHS PRN PO anxiety/sleep Last administered on 12/02/16 00:54; Start 11/29/16 at 15:45; Stop 12/29/16 at 15:44 Trazodone HCl (Desyrel) 50 mg QHSP PRN PO INSOMNIA Last administered on 21:08; Start 11/23/16 at 18:30; Stop 11/25/16 at 11:57; Status DC Allergies Coded Allergies: No Known Allergies (Unverified , 03/20/16) Lora Triana Dec 02, 2016 11:17
[2016-12-02 18:14] VITALS: BP 127/79
[2016-12-02] MEDS: lamoTRIgine 25 MG TAB PO SCH (21:08)
[2016-12-02] MEDS: IBUPROFEN 400 MG TAB PO PRN (22:11)
[2016-12-03 06:25] VITALS: BP 109/63
[2016-12-03] MEDS: NICOTINE 7 MG/24 HR TRANSDERMAL TD SCH (08:37)
[2016-12-03] MEDS: OXcarbazepine 150 MG TAB PO SCH ×2 (08:38→21:43)
[2016-12-03 18:02] VITALS: BP 125/60
[2016-12-03] MEDS: lamoTRIgine 25 MG TAB PO SCH (21:43)
[2016-12-03] MEDS: QUEtiapine FUMARATE 50 MG TAB PO PRN (23:00)
[2016-12-03] MEDS: IBUPROFEN 400 MG TAB PO PRN (23:00)
[2016-12-04 06:10] VITALS: BP 106/58
[2016-12-04] MEDS: OXcarbazepine 150 MG TAB PO SCH ×2 (09:00→21:00)
[2016-12-04] MEDS: NICOTINE 7 MG/24 HR TRANSDERMAL TD SCH (09:00)
[2016-12-04 18:00] VITALS: BP 129/81
[2016-12-04] MEDS: IBUPROFEN 400 MG TAB PO PRN (18:45)
[2016-12-04] MEDS: lamoTRIgine 25 MG TAB PO SCH (21:00)
--- NOTE | 2016-12-04 23:46 | IPNPDOC ---
[facility] Progress Note Progress Note DATE OF SERVICE: 12/04/16 SUBJECTIVE: Patient reports her mood as okay this morning. She reports being upset she is unable to complete assignments in allotted computer time on the unit. Patient frustrated with current academic situation and is agitated she is unable to do better thus far. She reports ongoing improved mood. Patient reports sleep and appetite continue to be within normal limits. Patient is med compliant and continues to report decreased ability to focus/concentrate as her only medication side effect. She is amenable to initiation of an antidepressant. Patient denies headache, chest pain, abdominal pain and reports urination and bowel movements are within normal limits. Patient denies SI/HI and denies AH/VH. Patient is appropriate and statements made and behaviors. No behavioral issues on the unit. OBJECTIVE: VITAL SIGNS: See below. CURRENT MEDICATIONS: See below. MENTAL STATUS EXAMINATION: Patient is a [21]-year old female, who is [pleasant, cooperative, well kempt], [looks stated age and in no acute distress.]. Speech: Is [RRR and spontaneous]. Thought processes: [Clear, linear and Goal directed]. Rate of thoughts: [Appropriate]. Thought content: [upset she is unable to complete assignments in allotted computer time]. Abnormal or psychotic thoughts: [No perceptual issues noted] Judgment: [fair] Insight: [poor ] Oriented to: [Time, place and person.] Recent and Remote Memory: [Immediate, short-term and long-term memory is intact] . Attention Span and Concentration: [ Good]. Fund of knowledge: [ Good]. Mood: [depressed ]. Affect: [dysthymic]. ASSESSMENT: 1. Unspecified mood disorder 2. cannabis use disorder 3. rule out anxiety disorder, rule out borderline personality disorder PLAN: -------- - Continue current psychotropic regimen as written. - Patient is amenable to initiation of an antidepressant to help with mood and depressive symptoms(poor concentration). - Initiation of antidepressant per primary provider. TIME SPENT: [30] minutes. Vital Signs Vital Signs Date Time Temp Pulse Resp B/P Pulse Ox O2 Delivery O2 Flow Rate FiO2 12/04/16 18:00 98.3 96 16 129/81 Current Medications Current Medications Medications (Trade) Dose Ordered Sig/Min Route PRN Reason Start Time Stop Time Status Last Admin Dose Admin Al Hydrox/Mg Hydrox/Simethicone (Mylanta) 30 ml Q4HP PRN PO HEARTBURN/INDIGESTION 11/23/16 18:30 12/23/16 18:29 Home Med (Med Rec Complete!) ASDIRECTED XX 11/23/16 13:00 11/23/16 13:00 DC Hydroxyzine HCl (Vistaril) 25 mg Q6HP PRN PO ANXIETY 11/29/16 16:00 12/01/16 12:37 DC 12/01/16 09:56 Ibuprofen (Advil) 400 mg Q6HP PRN PO PAIN 11/23/16 18:30 12/23/16 18:29 12/04/16 18:45 Lamotrigine (LaMICtal) 25 mg QHS PO 11/25/16 21:00 12/25/16 20:59 12/03/16 21:43 Magnesium Hydroxide (Milk Of Magnesia) 30 ml DAILYPRN PRN PO CONSTIPATION 11/23/16 18:30 12/23/16 18:29 Nicotine (Nicoderm Cq 7 Mg) 1 patch DAILY TD 11/24/16 09:00 12/24/16 08:59 12/01/16 16:35 Oxcarbazepine (Trileptal) 75 mg BID PO 11/25/16 09:00 11/25/16 17:45 DC 11/25/16 12:18 Oxcarbazepine (Trileptal) 75 mg BID PO 11/26/16 09:00 11/27/16 12:02 DC 11/27/16 09:07 Oxcarbazepine (Trileptal) 150 mg BID PO 11/27/16 21:00 12/27/16 20:59 12/03/16 21:43 Quetiapine Fumarate (SEROquel) 25 mg QHS PRN PO anxiety/sleep 11/25/16 12:00 11/29/16 15:47 DC 11/28/16 22:47 Quetiapine Fumarate (SEROquel) 50 mg QHS PRN PO anxiety/sleep 11/29/16 15:45 12/29/16 15:44 12/03/16 23:00 Trazodone HCl (Desyrel) 50 mg QHSP PRN PO INSOMNIA 11/23/16 18:30 11/25/16 11:57 DC 11/24/16 21:08 Allergies Coded Allergies: No Known Allergies (Unverified , 03/20/16) JACQUELINE MALDONADO MD Dec 04, 2016 23:46
[2016-12-05 06:52] VITALS: BP 96/58
[2016-12-05] MEDS: OXcarbazepine 150 MG TAB PO SCH ×2 (09:00→21:00)
[2016-12-05] MEDS: NICOTINE 7 MG/24 HR TRANSDERMAL TD SCH (09:00)
[2016-12-05] MEDS: IBUPROFEN 400 MG TAB PO PRN ×2 (14:56→21:35)
--- NOTE | 2016-12-05 16:44 | IPN ---
DATE: 12/05/2016 SUBJECTIVE: "I don't want to take this medication." OBJECTIVE: The patient states that she does not like how the medication "is making me feel" and "is affecting my memory." The patient is displaying cluster B traits. The patient is interacting well with other patients and staff and is able to smile, and I cannot observe psychomotor retardation. The patient's expression is significantly improved from admission. I discussed the treatment plan with the patient and encouraged her to think about the medication and discuss the treatment with her primary provider. MENTAL STATUS EXAMINATION: The patient is dressed in casual clothes. The patient is clean and well groomed, has fair eye contact. Speech is normal in rate, volume, articulation, is coherent and is spontaneous. Mood is reported as depressed and anxious. Affect is congruent with mood. There are no delusions or hallucinations. Memory, attention and concentration appear to be fair, although she complains of having memory problems. The patient is able to contract for safety in our unit. Insight and judgment is limited. ASSESSMENT: 1. Unspecified mood disorder. 2. Cannabis use disorder. 3. Rule out borderline personality disorder. PLAN: Will encourage the patient to restart taking the medications as prescribed by her primary provider.
[2016-12-05 18:00] VITALS: BP 117/75
[2016-12-05] MEDS: lamoTRIgine 25 MG TAB PO SCH (21:00)
[2016-12-06 06:39] VITALS: BP 97/56
[2016-12-06] MEDS: NICOTINE 7 MG/24 HR TRANSDERMAL TD SCH (09:00)
[2016-12-06] MEDS: OXcarbazepine 150 MG TAB PO SCH (09:00)
[2016-12-06] MEDS: IBUPROFEN 400 MG TAB PO PRN (09:15)
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
== END 2016-12-06 17:30 | disposition home or self-care (01) | DRG 885 ==
LOC: M ED 09:24 → M PSY 16:08
PROVIDERS: ADMIT Psychiatry & Neurology Psychiatry; ATTEND Psychiatry & Neurology Psychiatry
DX: F39 Unspecified mood [affective] disorder (principal); F31.9 Bipolar disorder, unspecified; F12.90 Cannabis use, unspecified, uncomplicated; F60.3 Borderline personality disorder; F17.210 Nicotine dependence, cigarettes, uncomplicated

== ENCOUNTER 2017-07-07 19:51 | Inpatient (IN) | payer MEDICAID, SELFPAY ==
[~2017-07-07] VITALS: Ht 165.1 cm; Wt 63.6 kg
[~2017-07-07 19:51] MED LIST changes: +HYDR-3363 PO; -HYDR25T PO; +NICO7PA TD
[2017-07-07 21:05] LABS: MEAN CORPUSCULAR HEMOGLOBIN 31.1 pg (27.0-33.0); MEAN CORPUSCULAR HGB CONC 34.4 g/dl (32.0-36.5); MEAN CORPUSCULAR VOLUME 90.5 fl (80.0-96.0); RED CELL DISTRIBUTION WIDTH 12.4 % (11.5-14.5); WHITE BLOOD COUNT 13.2 K/mm3 (4.0-10.0)
[2017-07-07 21:31] LABS: METHADONE URINE NEGATIVE (NEGATIVE)
[2017-07-07 21:34] LABS: CONTROL LINE HCG INT CTR LINE PRESENT
[2017-07-07 21:53] LABS: ALBUMIN 4.1 GM/DL (3.2-5.2); ALBUMIN/GLOBULIN RATIO 1.28 (1.00-1.93); ALKALINE PHOSPHATASE 84 U/L (45-117); ALT/SGPT 16 U/L (12-78); ANION GAP 11 MEQ/L (8-16); AST/SGOT 13 U/L (15-37); BILIRUBIN,DIRECT < 0.1 MG/DL (0.0-0.2); BILIRUBIN,TOTAL 0.3 MG/DL (0.2-1.0); BLOOD UREA NITROGEN 10 MG/DL (7-18); CALCIUM LEVEL 8.2 MG/DL (8.5-10.1); CARBON DIOXIDE LEVEL 22 MEQ/L (21-32); CHLORIDE LEVEL 111 MEQ/L (98-107); CREATININE FOR GFR 0.71 MG/DL (0.55-1.02); GLOMERULAR FILTRATION RATE > 60.0 (>60); GLUCOSE, FASTING 86 MG/DL (70-105); POTASSIUM SERUM 3.5 MEQ/L (3.5-5.1); SODIUM LEVEL 144 MEQ/L (136-145); TOTAL PROTEIN 7.3 GM/DL (6.4-8.2)
--- NOTE | 2017-07-07 23:11 | REP ---
Clinical: Trauma . Comparison: None . Findings: The ventricles, sulci, and cisterns are normal in position and appearance. Alston-white differentiation is maintained. No acute intracranial hemorrhage, mass/mass effect, pathology or trauma/injury. No evidence for acute infarction. No extra-axial fluid collection. Calvarium is intact. Paranasal sinuses and mastoid air cells are clear. Impression: Normal noncontrast head CT. No evidence for acute intracranial pathology or trauma/injury. Signed by Porfirio Andino MD 07/07/2017 11:02 P
--- NOTE | 2017-07-07 23:13 | REP ---
Clinical: Trauma . Technique: Axial noncontrast images from the skull base to the thoracic inlet with coronal and sagittal re-formations Findings: Normal alignment and lordosis is maintained. Cervical vertebral bodies including transverse processes and spinous processes are intact and there is no evidence for acute fracture / compression injury or subluxation. Spinal canal is patent. Posterior elements are intact. Paravertebral soft tissues are normal. Impression: Normal noncontrast cervical spine CT. No evidence for acute pathology or trauma/injury. Signed by Porfirio Andino MD 07/07/2017 11:04 P
[2017-07-08] MEDS ORDERED: NORCO, ANEXSIA 5/325MG TABLET (HYDROcodone/ACETAMINOPHEN) PO ONE (01:30)
[2017-07-08] MEDS ORDERED: MOM 30ML SUSPENSION UDC PO PRN (01:45)
[2017-07-08] MEDS ORDERED: MAALOX 30 ML SUSP *UDC PO PRN (01:45)
[2017-07-08] MEDS: traZODone 50 MG TAB PO PRN ×2 (02:23→20:09)
[2017-07-08 07:03] VITALS: BP 104/61
[2017-07-08] MEDS: ACETAMINOPHEN TAB 650MG DOSE (2X325MG) PO PRN ×2 (08:26→18:24)
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
[2017-07-08 18:00] VITALS: BP 102/53
[2017-07-08] MEDS: ESCITALOPRAM OXALATE 5MG TABLET (LEXAPRO) PO SCH (20:09)
[2017-07-09 06:30] VITALS: BP 96/52
[2017-07-09] MEDS: ACETAMINOPHEN TAB 650MG DOSE (2X325MG) PO PRN ×2 (07:56→15:13)
--- NOTE | 2017-07-09 16:32 | MHIPNPDOC ---
[facility] Progress Note Progress Note DATE OF SERVICE: 07/09/17 HISTORY: Patient is a 22-year-old female, , domicile with boyfriend, unemployed, no children. Past psychiatric history of bipolar disorder versus borderline personality disorder with multiple inpatient hospitalizations, one previous suicide attempt with hanging herself at the age of 13 years. Self- injurious behavior with cutting herself and also history of marijuana use daily and experimentation with other drugs in the past. No significant medical history brought in by EMS called by boyfriend because patient was reporting suicidal ideations. Patient was seen and evaluated. She reported that she has been feeling pain all over the body. Most of yesterday and today, but was able to participate in most of the unit activities and was interacting with others in the unit, patient was also found in another male patient's room and reported that she wanted to talk to him. Discussed about boundaries and rules of the unit and she was willing to follow them. She reported that she was not able to sleep well yesterday and woke up multiple times during the nighttime. She reported that her suicidal thoughts are fading away and she is also considering to reconcile. Discussed about coping skills to help in suicidal ideations and self-injurious behaviors. She reported that she has tried all of the skills in the past, but nothing works for her. Discussed about identifying early symptoms on implementing skills earlier history of waiting for symptoms to get worse and also practicing them in advance before implementing. Reported being compliant with medications and denies side effects. VITAL SIGNS: See below. CURRENT MEDICATIONS: See below. MENTAL STATUS EXAMINATION: 22yo female sitting in the chair, looks appropriate for the stated age, fair hygiene and grooming, normal psychomotor activities, no abnormal movements, superficially cooperative with fair eye contact, speech is normal in rate, rhythm, amount and prosody, mood is 'fine', affect full and mood congruent, thought process is logical and goal directed, denies suicidal and homicidal ideations, denies hallucinations, no delusions elicited, aaox3, fair immediate, short term and senior care memory, fair insight, judgement and impulse control DIAGNOSES: 1. Depressive disorder, unspecified, rule out bipolar disorder, current episode depression. 2. Borderline personality disorder and marijuana use disorder 3. Rule out PTSD ASSESSMENT: Patient quit relationship problems, mood swings MANAGEMENT PLAN:, Continue current management. Consider titrating up trazodone if Sleep problems continue. TIME SPENT: 15 minutes. Vital Signs Vital Signs Date Time Temp Pulse Resp B/P (MAP) Pulse Ox O2 Delivery O2 Flow Rate FiO2 07/09/17 06:30 97.9 73 16 96/52 (67) Room Air 07/08/17 07:03 97 Current Medications Current Medications Acetaminophen (Tylenol Tab) 650 mg Q6HP PRN PO HEADACHE or DISCOMFORT Last administered on 07/09/17 15:13; Start 07/08/17 at 01:45; Stop 08/07/17 at 01:44 Al Hydrox/Mg Hydrox/Simethicone (Mylanta) 30 ml Q4HP PRN PO HEARTBURN/ INDIGESTION; Start 07/08/17 at 01:45; Stop 08/07/17 at 01:44 Aripiprazole (AbiLIFY) 5 mg QHS PO Last administered on 07/08/17 20:09; Start 07/08/17 at 21:00; Stop 08/07/17 at 20:59 Escitalopram Oxalate (Lexapro) 5 mg QHS PO Last administered on 07/08/17 20:09 ; Start 07/08/17 at 21:00; Stop 08/07/17 at 20:59 Home Med (Med Rec Complete!) ASDIRECTED XX ; Start 07/08/17 at 01:30; Stop at 01:30; Status DC Magnesium Hydroxide (Milk Of Magnesia) 30 ml DAILYPRN PRN PO CONSTIPATION; Start 07/08/17 at 01:45; Stop 08/07/17 at 01:44 Trazodone HCl (Desyrel) 50 mg QHSP PRN PO INSOMNIA Last administered on 20:09; Start 07/08/17 at 01:45; Stop 08/07/17 at 01:44 Allergies Coded Allergies: No Known Allergies (Unverified , 07/07/17) LIZZ AGUILAR MD Jul 09, 2017 16:32
[2017-07-09 18:00] VITALS: BP 128/81
[2017-07-09] MEDS: ESCITALOPRAM OXALATE 5MG TABLET (LEXAPRO) PO SCH (22:24)
[2017-07-09] MEDS: traZODone 50 MG TAB PO PRN (22:24)
[2017-07-10 06:00] VITALS: BP 139/82
[2017-07-10] MEDS: ACETAMINOPHEN TAB 650MG DOSE (2X325MG) PO PRN ×3 (06:29→19:32)
--- NOTE | 2017-07-10 16:49 | MHIPNPDOC ---
[facility] Progress Note Progress Note DATE OF SERVICE: 07/10/17 HISTORY: Patient is a 22-year-old female, , domicile with boyfriend, unemployed, no children. Past psychiatric history of bipolar disorder versus borderline personality disorder with multiple inpatient hospitalizations, one previous suicide attempt with hanging herself at the age of 13 years. Self- injurious behavior with cutting herself and also history of marijuana use daily and experimentation with other drugs in the past. No significant medical history brought in by EMS called by boyfriend because patient was reporting suicidal ideations. Patient was seen and evaluated. She reported that she received a call from her ex-boyfriend asking if she was fine, which made her upset and she hung up the phone. She reported that it's a pattern that every single time She gets into a relationship and they betray her and later on did try to reconcile again. She also discussed about relationship problems with the family and friends. She reported that her suicidal thoughts are fading away and currently denies any suicidal or homicidal ideations. She reported that she has tried all of the skills in the past, but nothing works for her. Discussed about identifying early symptoms on implementing skills earlier history of waiting for symptoms to get worse and also practicing them in advance before implementing. Reported being compliant with medications and denies side effects. VITAL SIGNS: See below. CURRENT MEDICATIONS: See below. MENTAL STATUS EXAMINATION: 22yo female sitting in the chair, looks appropriate for the stated age, fair hygiene and grooming, normal psychomotor activities, no abnormal movements, superficially cooperative with fair eye contact, speech is normal in rate, rhythm, amount and prosody, mood is 'fine', affect full and mood congruent, thought process is logical and goal directed, denies suicidal and homicidal ideations, denies hallucinations, no delusions elicited, aaox3, fair immediate, short term and chcf memory, fair insight, judgement and impulse control DIAGNOSES: 1. Depressive disorder, unspecified, rule out bipolar disorder, current episode depression. 2. Borderline personality disorder and marijuana use disorder 3. Rule out PTSD ASSESSMENT: Patient quit relationship problems, mood swings MANAGEMENT PLAN:, Continue current management. Consider titrating up trazodone if Sleep problems continue. TIME SPENT: 15 minutes. Vital Signs Vital Signs Date Time Temp Pulse Resp B/P (MAP) Pulse Ox O2 Delivery O2 Flow Rate FiO2 07/10/17 06:00 97.6 80 18 139/82 (101) Room Air 07/08/17 07:03 97 Current Medications Current Medications Acetaminophen (Tylenol Tab) 650 mg Q6HP PRN PO HEADACHE or DISCOMFORT Last administered on 07/10/17 13:28; Start 07/08/17 at 01:45; Stop 08/07/17 at 01:44 Al Hydrox/Mg Hydrox/Simethicone (Mylanta) 30 ml Q4HP PRN PO HEARTBURN/ INDIGESTION; Start 07/08/17 at 01:45; Stop 08/07/17 at 01:44 Aripiprazole (AbiLIFY) 5 mg QHS PO Last administered on 07/09/17 22:24; Start 07/08/17 at 21:00; Stop 08/07/17 at 20:59 Escitalopram Oxalate (Lexapro) 5 mg QHS PO Last administered on 07/09/17 22:24 ; Start 07/08/17 at 21:00; Stop 08/07/17 at 20:59 Home Med (Med Rec Complete!) ASDIRECTED XX ; Start 07/08/17 at 01:30; Stop at 01:30; Status DC Magnesium Hydroxide (Milk Of Magnesia) 30 ml DAILYPRN PRN PO CONSTIPATION; Start 07/08/17 at 01:45; Stop 08/07/17 at 01:44 Trazodone HCl (Desyrel) 50 mg QHSP PRN PO INSOMNIA Last administered on 22:24; Start 07/08/17 at 01:45; Stop 08/07/17 at 01:44 Allergies Coded Allergies: No Known Allergies (Unverified , 07/07/17) LIZZ AGUILAR MD Jul 10, 2017 16:49
[2017-07-10 18:00] VITALS: BP 146/74
[2017-07-10] MEDS: ARIPiprazole 10 MG TAB PO SCH (20:42)
[2017-07-10] MEDS: ESCITALOPRAM OXALATE 10 MG TAB (LEXAPRO) PO SCH (20:42)
[2017-07-11 06:31] VITALS: BP 120/73
[2017-07-11] MEDS: ACETAMINOPHEN TAB 650MG DOSE (2X325MG) PO PRN (15:53)
--- NOTE | 2017-07-11 17:32 | MHIPNPDOC ---
[facility] Progress Note Progress Note DATE OF SERVICE: 07/11/17 HISTORY: Patient is a 22-year-old female, , domicile with boyfriend, unemployed, no children. Past psychiatric history of bipolar disorder versus borderline personality disorder with multiple inpatient hospitalizations, one previous suicide attempt with hanging herself at the age of 13 years. Self- injurious behavior with cutting herself and also history of marijuana use daily and experimentation with other drugs in the past. No significant medical history brought in by EMS called by boyfriend because patient was reporting suicidal ideations. Patient was seen and evaluated. She reported that she continued to be upset about the phone call that her ex-boyfriend made suspecting that he is trying to follow her, 'they all do Thats how They Are they all want to have sex, don't really care about me". She reported that her suicidal thoughts are fading away . Whenever she gets triggered by such incidences. She started thinking about life is not worth living but denies any plans or intention to kill herself and currently denies any suicidal or homicidal ideations. Reported being compliant with medications and denies side effects. Discussed with the patient about the clinical impression of her diagnosis, usual symptoms with that diagnosis, risk factors of impulsivity, chronic suicidal ideations, self-injurious behaviors, role of medications and therapy in treatment. Patient may need multiple reemphasis for psychoeducation. In the unit. Patient's symptoms were triggered by every small incidences and needs multiple verbal redirections to control her behaviors and maintain boundaries. VITAL SIGNS: See below. CURRENT MEDICATIONS: See below. MENTAL STATUS EXAMINATION: 22yo female sitting in the chair, looks appropriate for the stated age, fair hygiene and grooming, normal psychomotor activities, no abnormal movements, superficially cooperative with fair eye contact, speech is normal in rate, rhythm, amount and prosody, mood is 'terrible', affect labile and mood congruent , thought process is logical and goal directed, denies suicidal and homicidal ideations, denies hallucinations, no delusions elicited, aaox3, fair immediate, short term and halfway memory, limited insight, judgement and impulse control DIAGNOSES: 1. Depressive disorder, unspecified, rule out bipolar disorder, current episode depression. 2. Borderline personality disorder and marijuana use disorder 3. Rule out PTSD ASSESSMENT: Patient with relationship problems, mood swings MANAGEMENT PLAN:, Will titrate meds, and continue group therapy and milieu treatment TIME SPENT: 15 minutes. Vital Signs Vital Signs Date Time Temp Pulse Resp B/P (MAP) Pulse Ox O2 Delivery O2 Flow Rate FiO2 07/11/17 06:31 98.2 71 18 120/73 (89) 07/10/17 06:00 Room Air 07/08/17 07:03 97 Current Medications Current Medications Acetaminophen (Tylenol Tab) 650 mg Q6HP PRN PO HEADACHE or DISCOMFORT Last administered on 07/11/17 15:53; Start 07/08/17 at 01:45; Stop 08/07/17 at 01:44 Al Hydrox/Mg Hydrox/Simethicone (Mylanta) 30 ml Q4HP PRN PO HEARTBURN/ INDIGESTION; Start 07/08/17 at 01:45; Stop 08/07/17 at 01:44 Aripiprazole (AbiLIFY) 5 mg QHS PO Last administered on 07/09/17 22:24; Start 07/08/17 at 21:00; Stop 07/10/17 at 16:50; Status DC Aripiprazole (AbiLIFY) 10 mg QHS PO Last administered on 07/10/17 20:42; Start 07/10/17 at 21:00; Stop 08/09/17 at 20:59 Escitalopram Oxalate (Lexapro) 5 mg QHS PO Last administered on 07/09/17 22:24 ; Start 07/08/17 at 21:00; Stop 07/10/17 at 16:50; Status DC Escitalopram Oxalate (Lexapro) 10 mg QHS PO Last administered on 07/10/17 20:42 ; Start 07/10/17 at 21:00; Stop 08/09/17 at 20:59 Home Med (Med Rec Complete!) ASDIRECTED XX ; Start 07/08/17 at 01:30; Stop at 01:30; Status DC Magnesium Hydroxide (Milk Of Magnesia) 30 ml DAILYPRN PRN PO CONSTIPATION; Start 07/08/17 at 01:45; Stop 08/07/17 at 01:44 Trazodone HCl (Desyrel) 50 mg QHSP PRN PO INSOMNIA Last administered on 22:24; Start 07/08/17 at 01:45; Stop 08/07/17 at 01:44 Allergies Coded Allergies: No Known Allergies (Unverified , 07/07/17) LIZZ AGUILAR MD Jul 11, 2017 17:32
[2017-07-11 18:00] VITALS: BP 118/76
[2017-07-11] MEDS: ESCITALOPRAM OXALATE 10 MG TAB (LEXAPRO) PO SCH (21:30)
[2017-07-11] MEDS: ARIPiprazole 10 MG TAB PO SCH (21:30)
[2017-07-12 06:33] VITALS: BP 112/62
--- NOTE | 2017-07-12 06:48 | HPE ---
DATE OF ADMISSION: 07/08/2017 Please refer to the psychiatric history and evaluation for further details on this admission. This examination and history is intended for medical issues which may need treatment, followup, or consult on this 22-year-old female. PRIMARY CARE PROVIDER: None. ALLERGIES: No known allergies. SOCIAL HISTORY: She is . Ethyl alcohol (EtOH) rarely. Does not smoke cigarettes. Recreational drug use: Marijuana. PAST MEDICAL HISTORY: Depression. PAST SURGICAL HISTORY: Oral surgery. HOME MEDICATIONS: None. FAMILY HISTORY: Noncontributory. LABORATORY STUDIES: WBC 13.2, hemoglobin and hematocrit 12.9 and 57.3, platelets 276. Sodium 144, potassium 3.5, chloride 111, CO2 22, BUN and creatinine 10 and 0.71. Urine positive for cannabinoids. CT cervical was normal. CT head was normal. REVIEW OF SYSTEMS: Ten systems review was done and other than some slight soreness, was unremarkable. PHYSICAL EXAMINATION: 22-year-old cooperative female in no acute distress. Height 65 inches, weight 63 kg, body mass index (BMI) 23.3. Blood pressure 128/81, pulse 92, respirations 16, temperature 97.3. Patient is alert and oriented times three. Pupils equal and reactive to light. Extraocular movements are intact. Cornea and sclerae clear. Conjunctivae is normal. No facial asymmetry. Slight healing ecchymosis on right upper eyelid. Pharynx, tongue, gums pink and moist. Tongue is midline. NECK: Supple without lymphadenopathy. No thyromegaly. No goiter. Carotids 2+ without bruit. CHEST: Clear to auscultation without wheeze or retraction. HEART: Regular. ABDOMEN: Benign. Bowel sounds positive. GENITOURINARY/RECTAL: Not done. EXTREMITIES: Show equal strength. Full range of motion. No cyanosis, clubbing, or edema. Peripheral pulses equal and palpable bilaterally. SKIN: Warm and dry. She has healing bruises at various stages of healing on both thighs, right forearm, left hand, behind her right ear. IMPRESSION/PLAN: 1. Psychiatric plan per psychiatry. 2. Healing bruises in various stages of healing, improved. No acute medical issues.
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
[2017-07-12 18:00] VITALS: BP 116/72
[2017-07-12] MEDS: ACETAMINOPHEN TAB 650MG DOSE (2X325MG) PO PRN (20:07)
[2017-07-12] MEDS ORDERED: ARIPiprazole 15 MG TAB (AbiLIFY) PO SCH (21:00)
[2017-07-12] MEDS ORDERED: ESCITALOPRAM OXALATE 5MG TABLET (LEXAPRO) PO SCH (21:00)
[2017-07-13 06:26] VITALS: BP 126/63
[2017-07-13] MEDS ORDERED: ESCI10TA2 PO ×2 (11:37→13:12)
[2017-07-13] MEDS ORDERED: TRAZO50TA PO ×2 (11:37→13:12)
[2017-07-13] MEDS ORDERED: ARIP15TAB PO ×2 (11:37→13:12)
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
== END 2017-07-13 13:30 | disposition home or self-care (01) | DRG 753 ==
LOC: M ED 19:51 → EDBD 19:51 → M ED INP 07-08 01:39 → MERGE 07-08 01:39 → M PSY 07-08 02:59
PROVIDERS: ADMIT Psychiatry & Neurology Psychiatry; ATTEND Psychiatry & Neurology Psychiatry
DX: F31.9 Bipolar disorder, unspecified (principal); R45.851 Suicidal ideations; F43.10 Post-traumatic stress disorder, unspecified; Z79.899 Other long term (current) drug therapy

== ENCOUNTER 2017-09-18 06:47 | Emergency (ER) | payer OTHER, SELFPAY ==
[~2017-09-18] VITALS: Ht 165.1 cm; Wt 61.4 kg
[~2017-09-18 06:47] MED LIST changes: +ESCI10TA2 PO
--- NOTE | 2017-09-18 08:12 | REP ---
Clinical: Trauma. Technique: PA, Shirley, and bilateral oblique views of the mandible. Findings: The mandible appears intact without obvious acute fracture or dislocation. The bilateral temporomandibular joints appear symmetric and normal. The surrounding soft tissues are grossly unremarkable. No obvious subcutaneous emphysema or radiodense foreign body. Impression: No obvious acute mandible fracture / dislocation. Signed by Porfirio Andino MD 09/18/2017 08:04 A
[2017-09-18 08:20] VITALS: BP 110/73
== END 2017-09-18 08:32 | disposition home or self-care (01) ==
LOC: M ED 06:47
DX: S00.83XA Contusion of other part of head, initial encounter (principal); Y04.8XXA Assault by other bodily force, initial encounter; Y92.9 Unspecified place or not applicable; Y93.9 Activity, unspecified; Y99.9 Unspecified external cause status; M26.609 Unspecified temporomandibular joint disorder, unspecified side; F41.9 Anxiety disorder, unspecified; F31.9 Bipolar disorder, unspecified; R45.851 Suicidal ideations; J45.909 Unspecified asthma, uncomplicated; F63.9 Impulse disorder, unspecified; F17.200 Nicotine dependence, unspecified, uncomplicated; Z88.1 Allergy status to other antibiotic agents

== ENCOUNTER 2017-12-22 05:31 | Emergency (ER) | payer OTHER ==
[2017-12-22 06:40] LABS: INFLUENZA A AMPLIFICATION NEGATIVE (NEGATIVE); INFLUENZA B AMPLIFICATION NEGATIVE (NEGATIVE)
[2017-12-22] MEDS: NS 1,000 ML IV (07:38)
[2017-12-22] MEDS: methylPREDNISolone INJ 125 MG/2 ML VIAL (J2930) IV (07:38)
[2017-12-22 07:45] LABS: BASO % 0.1 % (0.0-1.0); EOS % 0.3 % (0.0-3.0); HEMATOCRIT 38.8 % (36.0-47.0); IMMATURE GRANULOCYTE % 0.3 % (0-3.0); LYMPH # 1.9 10^3/uL (1.5-6.5); LYMPH % 13.3 % (24.0-44.0); MEAN CORPUSCULAR HGB CONC 33.5 g/dl (32.0-36.5); MEAN CORPUSCULAR VOLUME 89.6 fl (80.0-96.0); MONO % 7.1 % (0.0-5.0); NEUTROPHILS % 78.9 % (36.0-66.0); PLATELET COUNT, AUTOMATED 247 10^3/uL (150-450); RED BLOOD COUNT 4.33 10^6/uL (4.00-5.40); RED CELL DISTRIBUTION WIDTH 12.5 % (11.5-14.5)
[2017-12-22] MEDS: ACETAMINOPHEN TAB 650MG DOSE (2X325MG) PO (07:51)
[2017-12-22] MEDS: ALBUTEROL SULFATE 2.5 MG/0.5 ML INH NEB SOLN NEB ×2 (07:56→08:45)
[2017-12-22 08:16] LABS: ANION GAP 7 MEQ/L (8-16); BLOOD UREA NITROGEN 8 MG/DL (7-18); CALCIUM LEVEL 8.9 MG/DL (8.5-10.1); CARBON DIOXIDE LEVEL 28 MEQ/L (21-32); CHLORIDE LEVEL 104 MEQ/L (98-107); CREATININE FOR GFR 0.78 MG/DL (0.55-1.30); GLOMERULAR FILTRATION RATE > 60.0 (>60); GLUCOSE, FASTING 81 MG/DL (70-100); POTASSIUM SERUM 3.5 MEQ/L (3.5-5.1); SODIUM LEVEL 139 MEQ/L (136-145)
== END 2017-12-22 09:26 | disposition home or self-care (01) ==
LOC: M ED 05:31
DX: J45.901 Unspecified asthma with (acute) exacerbation (principal); J01.90 Acute sinusitis, unspecified; M54.9 Dorsalgia, unspecified; F31.9 Bipolar disorder, unspecified; F41.9 Anxiety disorder, unspecified; M26.609 Unspecified temporomandibular joint disorder, unspecified side; F17.200 Nicotine dependence, unspecified, uncomplicated; F12.10 Cannabis abuse, uncomplicated; Z79.899 Other long term (current) drug therapy; Z88.0 Allergy status to penicillin
CPT/HCPCS: J2930

== ENCOUNTER 2017-12-23 08:48 | Emergency (ER) | payer OTHER ==
[2017-12-23] MEDS: guaiFENesin SYRUP 200 MG/10 ML UDC PO (10:10)
[2017-12-23] MEDS: KETOROLAC 60 MG/2 ML VIAL (J1885) IM (10:10)
[2017-12-23] MEDS: diphenhydrAMINE 50 MG CAP PO (10:10)
== END 2017-12-23 10:55 | disposition home or self-care (01) ==
LOC: M ED 08:48
DX: J06.9 Acute upper respiratory infection, unspecified (principal); R51 Headache; K59.00 Constipation, unspecified; J45.909 Unspecified asthma, uncomplicated; G40.909 Epilepsy, unspecified, not intractable, without status epilepticus; F31.9 Bipolar disorder, unspecified; F17.200 Nicotine dependence, unspecified, uncomplicated; Z88.0 Allergy status to penicillin
CPT/HCPCS: J1885

== ENCOUNTER 2017-12-30 09:15 | Emergency (ER) | payer OTHER ==
[2017-12-30 10:06] LABS: AMORPHOUS SEDIMENT RFX SMALL (NEGATIVE); KETONE, URINE AUTO RFX NEGATIVE (NEGATIVE); LEUKOCYTE ESTERASE UR AUTO RFX NEGATIVE (NEGATIVE); MUCUS, URINE RFX SMALL (NEGATIVE); NITRITE, URINE AUTO RFX NEGATIVE (NEGATIVE); RBC, URINE AUTO RFX 2 /HPF (0-3); SPECIFIC GRAVITY UR AUTO RFX 1.017 (1.002-1.035); SQUAM EPITHELIAL CELL UR AURFX 1 /HPF (0-6); WBC, URINE AUTO RFX 0 /HPF (0-3)
[2017-12-30 10:13] LABS: HEMATOCRIT 41.1 % (36.0-47.0); HEMOGLOBIN 13.9 g/dl (12.0-16.0); MEAN CORPUSCULAR HEMOGLOBIN 29.8 pg (27.0-33.0); MEAN CORPUSCULAR HGB CONC 33.8 g/dl (32.0-36.5); PLATELET COUNT, AUTOMATED 361 10^3/uL (150-450); RED BLOOD COUNT 4.67 10^6/uL (4.00-5.40); WHITE BLOOD COUNT 9.4 10^3/uL (4.0-10.0)
[2017-12-30 10:16] LABS: POS COUNT POS FLAG; POSITIVE MORPH POS FLAG
[2017-12-30 10:17] LABS: ADD MANUAL DIFFER YES; DIFF SLIDE NUMBER 106
[2017-12-30 10:25] LABS: ALBUMIN 3.8 GM/DL (3.2-5.2); ALBUMIN/GLOBULIN RATIO 1.12 (1.00-1.93); ALKALINE PHOSPHATASE 127 U/L (45-117); ALT/SGPT 31 U/L (12-78); ANION GAP 7 MEQ/L (8-16); AST/SGOT 15 U/L (7-37); BILIRUBIN,DIRECT < 0.1 MG/DL (0.0-0.2); BILIRUBIN,TOTAL 0.2 MG/DL (0.2-1.0); BLOOD UREA NITROGEN 16 MG/DL (7-18); CALCIUM LEVEL 8.5 MG/DL (8.5-10.1); CARBON DIOXIDE LEVEL 28 MEQ/L (21-32); CHLORIDE LEVEL 103 MEQ/L (98-107); CREATININE FOR GFR 0.69 MG/DL (0.55-1.30); GLOMERULAR FILTRATION RATE > 60.0 (>60); GLUCOSE, FASTING 100 MG/DL (70-100); LIPASE 150 U/L (73-393); POTASSIUM SERUM 4.1 MEQ/L (3.5-5.1); SODIUM LEVEL 138 MEQ/L (136-145); TOTAL PROTEIN 7.2 GM/DL (6.4-8.2)
[2017-12-30 10:40] LABS: ATYPICAL LYMPH 7 % (0-5); LYMPHOCYTES 42 % (16-52); MONOCYTES 10 % (0-8); MYELOCYTES 3 % (0-0); NEUTROPHILS 38 % (35-75); PLATELET ESTIMATE NORMAL (NORMAL)
[2017-12-30 10:41] LABS: ANISOCYTOSIS 1+
== END 2017-12-30 11:10 | disposition home or self-care (01) ==
LOC: M ED 09:15
DX: R11.0 Nausea (principal); R19.7 Diarrhea, unspecified; F17.200 Nicotine dependence, unspecified, uncomplicated; Z88.0 Allergy status to penicillin
CPT/HCPCS: 83690

== ENCOUNTER 2018-01-08 21:59 | Inpatient (IN) | payer OTHER ==
[2018-01-08 23:48] LABS: HEMATOCRIT 38.4 % (36.0-47.0); HEMOGLOBIN 12.9 g/dl (12.0-16.0); MEAN CORPUSCULAR HEMOGLOBIN 29.9 pg (27.0-33.0); MEAN CORPUSCULAR HGB CONC 33.6 g/dl (32.0-36.5); MEAN CORPUSCULAR VOLUME 88.9 fl (80.0-96.0); PLATELET COUNT, AUTOMATED 268 10^3/uL (150-450); RED BLOOD COUNT 4.32 10^6/uL (4.00-5.40); RED CELL DISTRIBUTION WIDTH 13.5 % (11.5-14.5); WHITE BLOOD COUNT 7.2 10^3/uL (4.0-10.0)
[2018-01-09 00:04] LABS: CONTROL LINE HCG INT CTR LINE PRESENT; HCG, SERUM QUALITATIVE NEGATIVE (NEGATIVE)
[2018-01-09 00:12] LABS: AMPHETAMINES LEVEL URINE NEGATIVE (NEGATIVE); BARBITURATES URINE NEGATIVE (NEGATIVE); BENZODIAZEPINES URINE NEGATIVE (NEGATIVE); CANNABINOIDS URINE POSITIVE (NEGATIVE); COCAINE METABOLITE URINE POSITIVE (NEGATIVE); METHADONE URINE NEGATIVE (NEGATIVE); OPIATES URINE NEGATIVE (NEGATIVE); PHENCYCLIDINE URINE NEGATIVE (NEGATIVE)
[2018-01-09 00:20] LABS: ACETAMINOPHEN LEVEL < 2.0 UG/ML (10.0-30.0); ALBUMIN 4.7 GM/DL (3.2-5.2); ALBUMIN/GLOBULIN RATIO 1.57 (1.00-1.93); ALKALINE PHOSPHATASE 83 U/L (45-117); ALT/SGPT 22 U/L (12-78); ANION GAP 11 MEQ/L (8-16); AST/SGOT 11 U/L (7-37); BILIRUBIN,DIRECT 0.2 MG/DL (0.0-0.2); BILIRUBIN,TOTAL 0.9 MG/DL (0.2-1.0); BLOOD UREA NITROGEN 16 MG/DL (7-18); CARBON DIOXIDE LEVEL 24 MEQ/L (21-32); CHLORIDE LEVEL 105 MEQ/L (98-107); CREATININE FOR GFR 0.85 MG/DL (0.55-1.30); ETHYL ALCOHOL (ETHANOL) < 0.003 % (0.000-0.010); GLOMERULAR FILTRATION RATE > 60.0 (>60); GLUCOSE, FASTING 80 MG/DL (70-100); POTASSIUM SERUM 3.5 MEQ/L (3.5-5.1); SALICYLATE LEVEL 4.1 MG/DL (5.0-30.0); SODIUM LEVEL 140 MEQ/L (136-145); THYROID STIMULATING HORMONE 0.954 uIU/ML (0.358-3.740); TOTAL PROTEIN 7.7 GM/DL (6.4-8.2)
[2018-01-09] MEDS ORDERED: ACETAMINOPHEN TAB 650MG DOSE (2X325MG) PO (01:15)
[2018-01-09] MEDS ORDERED: traZODone 50 MG TAB PO (01:15)
[2018-01-09] MEDS ORDERED: MOM 30ML SUSPENSION UDC PO (01:15)
[2018-01-09] MEDS ORDERED: MAALOX 30 ML SUSP *UDC PO (01:15)
[2018-01-09] MEDS ORDERED: OLANZapine ORAL DISINTEGRATING TAB 5MG PO (01:15)
[2018-01-09] MEDS: HALOPERIDOL 5 MG/ML VIAL (J1630) IM (05:22)
[2018-01-09] MEDS: diphenhydrAMINE INJ 50MG/ML VIAL (J1200) IM (05:22)
[2018-01-09] MEDS: LORazepam 2 MG/ML VIAL (J2060) IM (05:28)
[2018-01-09] MEDS: NICOTINE 21MG/24HR 1 EA TRANSDERMAL TD (09:00)
[2018-01-09] MEDS ORDERED: hydrOXYzine 50 MG TAB PO (10:00)
[2018-01-09] MEDS: ARIPiprazole 10 MG TAB PO (16:38)
[2018-01-09] MEDS: ESCITALOPRAM OXALATE 5MG TABLET (LEXAPRO) PO (16:38)
[2018-01-10] MEDS: NICOTINE 21MG/24HR 1 EA TRANSDERMAL TD (09:00)
[2018-01-10] MEDS: ARIPiprazole 10 MG TAB PO (09:20)
[2018-01-10] MEDS: ESCITALOPRAM OXALATE 5MG TABLET (LEXAPRO) PO (09:20)
[2018-01-10] MEDS ORDERED: INFLUENZA QUADRIVALENT PF VACCINE 0.5ML SYRINGE (90686) IM (19:00)
[2018-01-11] MEDS: ARIPiprazole 10 MG TAB PO (08:18)
[2018-01-11] MEDS: ESCITALOPRAM OXALATE 5MG TABLET (LEXAPRO) PO (08:18)
[2018-01-11] MEDS: NICOTINE 21MG/24HR 1 EA TRANSDERMAL TD (08:19)
== END 2018-01-11 17:55 | disposition home or self-care (01) | DRG 753 ==
LOC: M ED INP 01-09 01:04 → M PSY 01-09 02:47 → M ED 21:59
DX: F31.9 Bipolar disorder, unspecified (principal); Z91.14 Patient's other noncompliance with medication regimen; A60.09 Herpesviral infection of other urogenital tract; F19.959 Other psychoactive substance use, unspecified with psychoactive substance-induced psychotic disorder, unspecified; Z91.5 Personal history of self-harm; Z88.1 Allergy status to other antibiotic agents; F17.210 Nicotine dependence, cigarettes, uncomplicated

== ENCOUNTER 2018-01-30 03:54 | Inpatient (IN) | payer OTHER ==
[2018-01-30 05:17] LABS: HEMATOCRIT 40.7 % (36.0-47.0); HEMOGLOBIN 13.7 g/dl (12.0-16.0); MEAN CORPUSCULAR HEMOGLOBIN 30.3 pg (27.0-33.0); MEAN CORPUSCULAR HGB CONC 33.7 g/dl (32.0-36.5); PLATELET COUNT, AUTOMATED 298 10^3/uL (150-450); RED BLOOD COUNT 4.52 10^6/uL (4.00-5.40); RED CELL DISTRIBUTION WIDTH 13.7 % (11.5-14.5); WHITE BLOOD COUNT 8.5 10^3/uL (4.0-10.0)
[2018-01-30 05:45] LABS: CONTROL LINE HCG INT CTR LINE PRESENT; HCG, SERUM QUALITATIVE NEGATIVE (NEGATIVE)
[2018-01-30 05:55] LABS: ALBUMIN 5.1 GM/DL (3.2-5.2); ALBUMIN/GLOBULIN RATIO 1.55 (1.00-1.93); ALKALINE PHOSPHATASE 78 U/L (45-117); ALT/SGPT 16 U/L (12-78); ANION GAP 6 MEQ/L (8-16); AST/SGOT 11 U/L (7-37); BILIRUBIN,DIRECT 0.2 MG/DL (0.0-0.2); BILIRUBIN,TOTAL 0.9 MG/DL (0.2-1.0); BLOOD UREA NITROGEN 11 MG/DL (7-18); CALCIUM LEVEL 9.2 MG/DL (8.5-10.1); CARBON DIOXIDE LEVEL 26 MEQ/L (21-32); CHLORIDE LEVEL 108 MEQ/L (98-107); ETHYL ALCOHOL (ETHANOL) < 0.003 % (0.000-0.010); GLOMERULAR FILTRATION RATE > 60.0 (>60); GLUCOSE, FASTING 100 MG/DL (70-100); POTASSIUM SERUM 3.4 MEQ/L (3.5-5.1); SALICYLATE LEVEL 5.4 MG/DL (5.0-30.0); SODIUM LEVEL 140 MEQ/L (136-145); TOTAL PROTEIN 8.4 GM/DL (6.4-8.2)
[2018-01-30 06:02] LABS: ACETAMINOPHEN LEVEL < 2.0 UG/ML (10.0-30.0)
[2018-01-30 06:21] LABS: AMPHETAMINES LEVEL URINE NEGATIVE (NEGATIVE); BARBITURATES URINE NEGATIVE (NEGATIVE); BENZODIAZEPINES URINE NEGATIVE (NEGATIVE); CANNABINOIDS URINE POSITIVE (NEGATIVE); COCAINE METABOLITE URINE NEGATIVE (NEGATIVE); METHADONE URINE NEGATIVE (NEGATIVE); OPIATES URINE NEGATIVE (NEGATIVE); PHENCYCLIDINE URINE NEGATIVE (NEGATIVE)
[2018-01-30] MEDS: ARIPiprazole 10 MG TAB PO ×2 (07:15→21:29)
[2018-01-30] MEDS: HALOPERIDOL 5 MG TAB PO (09:30)
[2018-01-30] MEDS: diphenhydrAMINE 25 MG CAP PO (09:30)
[2018-01-30] MEDS: ESCITALOPRAM OXALATE 5MG TABLET (LEXAPRO) PO (10:57)
[2018-01-30] MEDS ORDERED: OLANZapine 5 MG TAB PO (15:00)
[2018-01-31] MEDS: ESCITALOPRAM OXALATE 5MG TABLET (LEXAPRO) PO (08:37)
[2018-01-31 09:51] LABS: ALBUMIN 4.7 GM/DL (3.2-5.2); ALBUMIN/GLOBULIN RATIO 1.42 (1.00-1.93); ALKALINE PHOSPHATASE 69 U/L (45-117); ALT/SGPT 16 U/L (12-78); ANION GAP 8 MEQ/L (8-16); AST/SGOT 8 U/L (7-37); BILIRUBIN,TOTAL 0.8 MG/DL (0.2-1.0); BLOOD UREA NITROGEN 13 MG/DL (7-18); CALCIUM LEVEL 9.4 MG/DL (8.5-10.1); CARBON DIOXIDE LEVEL 27 MEQ/L (21-32); CHLORIDE LEVEL 105 MEQ/L (98-107); CREATININE FOR GFR 0.94 MG/DL (0.55-1.30); GLOMERULAR FILTRATION RATE > 60.0 (>60); GLUCOSE, FASTING 84 MG/DL (70-100); POTASSIUM SERUM 3.4 MEQ/L (3.5-5.1); SODIUM LEVEL 140 MEQ/L (136-145)
[2018-01-31 10:59] LABS: HEPATITIS B SURFACE ANTIGEN NEGATIVE (NEGATIVE)
[2018-01-31 11:05] LABS: HEPATITIS B CORE ANTIBODY IGM NEGATIVE (NEGATIVE)
[2018-01-31 11:09] LABS: HEPATITIS A ANTIBODY IGM NEGATIVE (NEGATIVE)
[2018-01-31 11:25] LABS: HIV 1&2 SCREEN CENTAUR NEGATIVE (NEGATIVE)
[2018-01-31] MEDS: POTASSIUM CHLORIDE 10 MEQ SR TABLET PO (12:32)
[2018-01-31] MEDS: ARIPiprazole 10 MG TAB PO (21:16)
[2018-01-31] MEDS: hydrOXYzine 50 MG TAB PO (21:33)
[2018-02-01 07:06] LABS: ANION GAP 8 MEQ/L (8-16); BLOOD UREA NITROGEN 10 MG/DL (7-18); CALCIUM LEVEL 9.5 MG/DL (8.5-10.1); CARBON DIOXIDE LEVEL 26 MEQ/L (21-32); CHLORIDE LEVEL 108 MEQ/L (98-107); CREATININE FOR GFR 0.78 MG/DL (0.55-1.30); GLOMERULAR FILTRATION RATE > 60.0 (>60); GLUCOSE, FASTING 98 MG/DL (70-100); POTASSIUM SERUM 3.7 MEQ/L (3.5-5.1); SODIUM LEVEL 142 MEQ/L (136-145)
[2018-02-01] MEDS: ESCITALOPRAM OXALATE 5MG TABLET (LEXAPRO) PO (08:52)
[2018-02-01] MEDS ORDERED: ACETAMINOPHEN TAB 650MG DOSE (2X325MG) PO (09:00)
[2018-02-01] MEDS ORDERED: traZODone 50 MG TAB PO (09:00)
[2018-02-01] MEDS ORDERED: MOM 30ML SUSPENSION UDC PO (09:00)
[2018-02-01] MEDS ORDERED: MAALOX 30 ML SUSP *UDC PO (09:00)
[2018-02-01] MEDS: ARIPiprazole 15 MG TAB (AbiLIFY) PO (20:20)
[2018-02-01] MEDS: hydrOXYzine 50 MG TAB PO (20:20)
[2018-02-02] MEDS: ESCITALOPRAM OXALATE 10 MG TAB (LEXAPRO) PO (08:34)
== END 2018-02-02 12:22 | disposition home or self-care (01) | DRG 753 ==
LOC: M PSY 01-31 16:53 → M ED 03:54 → M ED INP 11:44 → M PSY 13:25
DX: F31.60 Bipolar disorder, current episode mixed, unspecified (principal); F14.10 Cocaine abuse, uncomplicated; F60.3 Borderline personality disorder; F12.10 Cannabis abuse, uncomplicated; Z62.810 Personal history of physical and sexual abuse in childhood; Z88.0 Allergy status to penicillin; Z88.8 Allergy status to other drugs, medicaments and biological substances; F41.9 Anxiety disorder, unspecified; F17.210 Nicotine dependence, cigarettes, uncomplicated; Z79.899 Other long term (current) drug therapy

== ENCOUNTER 2018-03-02 10:07 | Inpatient (IN) | payer OTHER ==
[2018-03-02 11:00] LABS: HEMATOCRIT 38.5 % (36.0-47.0); HEMOGLOBIN 13.1 g/dl (12.0-15.5); MEAN CORPUSCULAR HEMOGLOBIN 31.1 pg (27.0-33.0); MEAN CORPUSCULAR VOLUME 91.4 fl (80.0-96.0); PLATELET COUNT, AUTOMATED 275 10^3/uL (150-450); RED BLOOD COUNT 4.21 10^6/uL (4.00-5.40); RED CELL DISTRIBUTION WIDTH 13.1 % (11.5-14.5); WHITE BLOOD COUNT 6.2 10^3/uL (4.0-10.0)
[2018-03-02 11:15] LABS: CONTROL LINE HCG INT CTR LINE PRESENT; HCG, SERUM QUALITATIVE NEGATIVE (NEGATIVE)
[2018-03-02 11:24] LABS: AMPHETAMINES LEVEL URINE NEGATIVE (NEGATIVE); BARBITURATES URINE NEGATIVE (NEGATIVE); BENZODIAZEPINES URINE NEGATIVE (NEGATIVE); CANNABINOIDS URINE POSITIVE (NEGATIVE); COCAINE METABOLITE URINE NEGATIVE (NEGATIVE); METHADONE URINE NEGATIVE (NEGATIVE); OPIATES URINE NEGATIVE (NEGATIVE); PHENCYCLIDINE URINE NEGATIVE (NEGATIVE)
[2018-03-02 11:33] LABS: ALBUMIN 4.4 GM/DL (3.2-5.2); ALBUMIN/GLOBULIN RATIO 1.52 (1.00-1.93); ALKALINE PHOSPHATASE 92 U/L (45-117); ALT/SGPT 13 U/L (12-78); ANION GAP 6 MEQ/L (8-16); AST/SGOT 8 U/L (7-37); BILIRUBIN,DIRECT < 0.1 MG/DL (0.0-0.2); BILIRUBIN,TOTAL 0.3 MG/DL (0.2-1.0); BLOOD UREA NITROGEN 9 MG/DL (7-18); CALCIUM LEVEL 8.8 MG/DL (8.5-10.1); CARBON DIOXIDE LEVEL 24 MEQ/L (21-32); CHLORIDE LEVEL 112 MEQ/L (98-107); CREATININE FOR GFR 0.81 MG/DL (0.55-1.30); GLOMERULAR FILTRATION RATE > 60.0 (>60); GLUCOSE, FASTING 94 MG/DL (70-100); POTASSIUM SERUM 4.2 MEQ/L (3.5-5.1); SALICYLATE LEVEL 4.4 MG/DL (5.0-30.0); SODIUM LEVEL 142 MEQ/L (136-145); THYROID STIMULATING HORMONE 0.261 uIU/ML (0.358-3.740); TOTAL PROTEIN 7.3 GM/DL (6.4-8.2)
[2018-03-02 11:44] LABS: ACETAMINOPHEN LEVEL < 2.0 UG/ML (10.0-30.0); ETHYL ALCOHOL (ETHANOL) < 0.003 % (0.000-0.010)
[2018-03-02] MEDS ORDERED: LORazepam 1 MG TAB PO (14:06)
[2018-03-02] MEDS: HALOPERIDOL 5 MG/ML VIAL (J1630) IM (14:35)
[2018-03-02] MEDS: LORazepam 2 MG/ML VIAL (J2060) IM (14:35)
[2018-03-02] MEDS: diphenhydrAMINE INJ 50MG/ML VIAL (J1200) IM (14:35)
[2018-03-02] MEDS ORDERED: MOM 30ML SUSPENSION UDC PO (18:30)
[2018-03-02] MEDS ORDERED: traZODone 50 MG TAB PO (18:30)
[2018-03-02] MEDS ORDERED: MAALOX 30 ML SUSP *UDC PO (18:30)
[2018-03-04] MEDS: ACETAMINOPHEN TAB 650MG DOSE (2X325MG) PO (14:44)
[2018-03-04] MEDS: OLANZapine ORAL DISINTEGRATING TAB 5MG PO (15:58)
[2018-03-05] MEDS: OLANZapine ORAL DISINTEGRATING TAB 5MG PO (10:12)
[2018-03-05] MEDS: ACETAMINOPHEN TAB 650MG DOSE (2X325MG) PO (10:14)
== END 2018-03-05 14:25 | disposition home or self-care (01) | DRG 753 ==
LOC: M ED 10:07 → M ED INP 18:20 → M PSY 20:35
DX: F31.9 Bipolar disorder, unspecified (principal); F41.9 Anxiety disorder, unspecified; F60.3 Borderline personality disorder; F12.90 Cannabis use, unspecified, uncomplicated; Z88.0 Allergy status to penicillin; Z88.8 Allergy status to other drugs, medicaments and biological substances

== ENCOUNTER 2018-03-19 09:15 | Emergency (ER) | payer OTHER | END 2018-03-19 09:56 | disposition home or self-care (01) | LOC: M ED 09:15 | DX: Z48.02 Encounter for removal of sutures (principal); J45.909 Unspecified asthma, uncomplicated; F17.200 Nicotine dependence, unspecified, uncomplicated; Z88.0 Allergy status to penicillin; Z88.1 Allergy status to other antibiotic agents | CPT/HCPCS: 99282 ==

== ENCOUNTER 2018-05-22 11:42 | Emergency (ER) | payer OTHER ==
[2018-05-22 13:07] LABS: CALCIUM OXALATE CRYSTALS RFX SMALL; KETONE, URINE AUTO RFX NEGATIVE (NEGATIVE); LEUKOCYTE ESTERASE UR AUTO RFX NEGATIVE (NEGATIVE); MUCUS, URINE RFX LARGE (NEGATIVE); NITRITE, URINE AUTO RFX NEGATIVE (NEGATIVE); RBC, URINE AUTO RFX 5 /HPF (0-3); SPECIFIC GRAVITY UR AUTO RFX 1.027 (1.002-1.035); SQUAM EPITHELIAL CELL UR AURFX 12 /HPF (0-6); WBC, URINE AUTO RFX 7 /HPF (0-3)
[2018-05-22] MEDS: NS 1,000 ML IV (13:45)
[2018-05-22] MEDS: MORPHINE 4 MG/ML 1ML VIAL/SYRINGE (J2270) IV (13:46)
[2018-05-22] MEDS: ONDANSETRON 4MG/2ML VIAL (J2405) IV (13:46)
[2018-05-22 14:13] LABS: BASO % 0.2 % (0.0-1.0); EOS % 0.5 % (0.0-3.0); HEMATOCRIT 42.2 % (36.0-47.0); IMMATURE GRANULOCYTE % 0.4 % (0-3.0); LYMPH # 1.8 10^3/uL (1.5-6.5); LYMPH % 21.4 % (24.0-44.0); MEAN CORPUSCULAR HEMOGLOBIN 29.9 pg (27.0-33.0); MEAN CORPUSCULAR HGB CONC 33.2 g/dl (32.0-36.5); MONO # 0.5 10^3/uL (0.0-0.8); MONO % 5.9 % (0.0-5.0); NEUTROPHILS % 71.6 % (36.0-66.0); PLATELET COUNT, AUTOMATED 270 10^3/uL (150-450); RED BLOOD COUNT 4.69 10^6/uL (4.00-5.40); RED CELL DISTRIBUTION WIDTH 12.6 % (11.5-14.5); WHITE BLOOD COUNT 8.3 10^3/uL (4.0-10.0)
[2018-05-22 14:17] LABS: ALBUMIN 4.5 GM/DL (3.2-5.2); ALBUMIN/GLOBULIN RATIO 1.07 (1.00-1.93); ALKALINE PHOSPHATASE 95 U/L (45-117); ALT/SGPT 17 U/L (12-78); ANION GAP 7 MEQ/L (8-16); AST/SGOT 15 U/L (7-37); BILIRUBIN,DIRECT 0.2 MG/DL (0.0-0.2); BLOOD UREA NITROGEN 15 MG/DL (7-18); CALCIUM LEVEL 9.4 MG/DL (8.5-10.1); CARBON DIOXIDE LEVEL 28 MEQ/L (21-32); CHLORIDE LEVEL 105 MEQ/L (98-107); CREATININE FOR GFR 0.86 MG/DL (0.55-1.30); GLOMERULAR FILTRATION RATE > 60.0 (>60); GLUCOSE, FASTING 88 MG/DL (70-100); LIPASE 99 U/L (73-393); POTASSIUM SERUM 3.9 MEQ/L (3.5-5.1); SODIUM LEVEL 140 MEQ/L (136-145); TOTAL PROTEIN 8.7 GM/DL (6.4-8.2)
[2018-05-22] MEDS ORDERED: ISOVUE-370 76% 100ML VIAL (Q9967) As Ordered (14:47)
== END 2018-05-22 16:16 | disposition home or self-care (01) ==
LOC: M ED 11:42
DX: K35.80 Unspecified acute appendicitis (principal); J45.909 Unspecified asthma, uncomplicated; R56.9 Unspecified convulsions; F41.9 Anxiety disorder, unspecified; F33.9 Major depressive disorder, recurrent, unspecified; M26.609 Unspecified temporomandibular joint disorder, unspecified side; Z88.1 Allergy status to other antibiotic agents; Z77.098 Contact with and (suspected) exposure to other hazardous, chiefly nonmedicinal, chemicals
CPT/HCPCS: J2270

== ENCOUNTER 2018-06-13 23:44 | Emergency (ER) | payer SELFPAY, OTHER, MEDICAID ==
[2018-06-14 02:04] LABS: BASO % 0.3 % (0.0-1.0); EOS # 0.2 10^3/uL (0.0-0.50); HEMOGLOBIN 12.9 g/dl (12.0-15.5); IMMATURE GRANULOCYTE % 0.3 % (0-3.0); LYMPH % 50.2 % (24.0-44.0); MEAN CORPUSCULAR HEMOGLOBIN 30.3 pg (27.0-33.0); MEAN CORPUSCULAR HGB CONC 33.1 g/dl (32.0-36.5); MEAN CORPUSCULAR VOLUME 91.5 fl (80.0-96.0); MONO # 0.4 10^3/uL (0.0-0.8); MONO % 5.2 % (0.0-5.0); NEUTROPHILS # 3.3 10^3/uL (1.8-7.7); PLATELET COUNT, AUTOMATED 232 10^3/uL (150-450); RED BLOOD COUNT 4.26 10^6/uL (4.00-5.40); RED CELL DISTRIBUTION WIDTH 12.9 % (11.5-14.5); WHITE BLOOD COUNT 7.9 10^3/uL (4.0-10.0)
[2018-06-14 02:19] LABS: CONTROL LINE HCG INT CTR LINE PRESENT; HCG, SERUM QUALITATIVE NEGATIVE (NEGATIVE)
[2018-06-14 02:25] LABS: ALBUMIN 4.1 GM/DL (3.2-5.2); ALBUMIN/GLOBULIN RATIO 1.37 (1.00-1.93); ALKALINE PHOSPHATASE 88 U/L (45-117); ALT/SGPT 15 U/L (12-78); ANION GAP 8 MEQ/L (8-16); AST/SGOT 10 U/L (7-37); BILIRUBIN,DIRECT < 0.1 MG/DL (0.0-0.2); BILIRUBIN,TOTAL 0.3 MG/DL (0.2-1.0); BLOOD UREA NITROGEN 12 MG/DL (7-18); CALCIUM LEVEL 8.8 MG/DL (8.5-10.1); CARBON DIOXIDE LEVEL 28 MEQ/L (21-32); CHLORIDE LEVEL 107 MEQ/L (98-107); GLOMERULAR FILTRATION RATE > 60.0 (>60); GLUCOSE, FASTING 87 MG/DL (70-100); LIPASE 130 U/L (73-393); SODIUM LEVEL 143 MEQ/L (136-145); TOTAL PROTEIN 7.1 GM/DL (6.4-8.2)
[2018-06-14] MEDS ORDERED: GASTROGRAFIN SOLUTION 30ML (Q9963) As Ordered (03:03)
[2018-06-14] MEDS: GASTROGRAFIN SOLUTION 30ML PO ×2 (03:15→03:45)
[2018-06-14] MEDS ORDERED: ISOVUE-370 76% 100ML VIAL (Q9967) As Ordered (03:48)
[2018-06-14] MEDS ORDERED: NORCO 5/325MG TABLET (BULK FOR ED) PO (06:45)
== END 2018-06-14 08:16 | disposition home or self-care (01) ==
LOC: M ED 23:44
DX: R53.81 Other malaise (principal); R11.10 Vomiting, unspecified; Z88.0 Allergy status to penicillin; Z88.8 Allergy status to other drugs, medicaments and biological substances; Z79.2 Long term (current) use of antibiotics
CPT/HCPCS: Q9967

== ENCOUNTER 2018-07-24 14:11 | Emergency (ER) | payer OTHER, SELFPAY ==
[2018-07-24] MEDS: KETOROLAC TROMETHAMINE 10 MG TAB PO (16:44)
[2018-07-24] MEDS: BACLOFEN 10 MG TAB PO (16:44)
== END 2018-07-24 17:08 | disposition home or self-care (01) ==
LOC: M ED 14:11
DX: S50.02XA Contusion of left elbow, initial encounter (principal); Y04.0XXA Assault by unarmed brawl or fight, initial encounter; Y92.512 Supermarket, store or market as the place of occurrence of the external cause
CPT/HCPCS: 99283

== ENCOUNTER 2018-08-12 04:52 | Emergency (ER) | payer OTHER ==
[2018-08-12] MEDS: KETOROLAC 60 MG/2 ML VIAL (J1885) IM (06:27)
== END 2018-08-12 06:47 | disposition home or self-care (01) ==
LOC: M ED 04:52
DX: M25.521 Pain in right elbow (principal); M25.522 Pain in left elbow; F60.3 Borderline personality disorder; F19.10 Other psychoactive substance abuse, uncomplicated; Z88.0 Allergy status to penicillin
CPT/HCPCS: J1885

== ENCOUNTER 2018-10-17 07:44 | Emergency (ER) | payer OTHER ==
[2018-10-17] MEDS: ONDANSETRON 4MG/2ML VIAL (J2405) IV ×2 (08:23→10:51)
[2018-10-17] MEDS: NS 1,000 ML IV ×2 (08:23→12:45)
[2018-10-17] MEDS: MORPHINE 4 MG/ML 1ML VIAL/SYRINGE (J2270) IV ×3 (08:24→10:51)
[2018-10-17 08:32] LABS: BASO % 0.1 % (0.0-1.0); HEMATOCRIT 38.8 % (36.0-47.0); HEMOGLOBIN 13.2 g/dl (12.0-15.5); IMMATURE GRANULOCYTE % 0.8 % (0-3.0); LYMPH # 1.1 10^3/uL (1.5-6.5); LYMPH % 5.2 % (24.0-44.0); MEAN CORPUSCULAR HEMOGLOBIN 30.4 pg (27.0-33.0); MEAN CORPUSCULAR VOLUME 89.4 fl (80.0-96.0); MONO # 0.4 10^3/uL (0.0-0.8); MONO % 1.9 % (0.0-5.0); NEUTROPHILS # 19.6 10^3/uL (1.8-7.7); PLATELET COUNT, AUTOMATED 239 10^3/uL (150-450); RED BLOOD COUNT 4.34 10^6/uL (4.00-5.40); RED CELL DISTRIBUTION WIDTH 12.7 % (11.5-14.5); WHITE BLOOD COUNT 21.2 10^3/uL (4.0-10.0)
[2018-10-17 08:51] LABS: KETONE, URINE AUTO RFX NEGATIVE (NEGATIVE); MUCUS, URINE RFX LARGE (NEGATIVE); NITRITE, URINE AUTO RFX NEGATIVE (NEGATIVE); RBC, URINE AUTO RFX 2 /HPF (0-3); RENAL EPITHELIAL CELLS RFX 1 /HPF; SQUAM EPITHELIAL CELL UR AURFX 3 /HPF (0-6); TRANSITIONAL EPITHELIAL AU RFX 2 /HPF
[2018-10-17 09:08] LABS: ALBUMIN 4.2 GM/DL (3.2-5.2); ALBUMIN/GLOBULIN RATIO 1.27 (1.00-1.93); ALKALINE PHOSPHATASE 78 U/L (45-117); ALT/SGPT 11 U/L (12-78); ANION GAP 11 MEQ/L (8-16); AST/SGOT 7 U/L (7-37); BILIRUBIN,DIRECT 0.3 MG/DL (0.0-0.2); BILIRUBIN,TOTAL 1.2 MG/DL (0.2-1.0); BLOOD UREA NITROGEN 15 MG/DL (7-18); CALCIUM LEVEL 8.8 MG/DL (8.5-10.1); CARBON DIOXIDE LEVEL 23 MEQ/L (21-32); CHLORIDE LEVEL 104 MEQ/L (98-107); CREATININE FOR GFR 1.12 MG/DL (0.55-1.30); GLOMERULAR FILTRATION RATE > 60.0 (>60); GLUCOSE, FASTING 120 MG/DL (70-100); LIPASE 53 U/L (73-393); POTASSIUM SERUM 3.5 MEQ/L (3.5-5.1); SODIUM LEVEL 138 MEQ/L (136-145); TOTAL PROTEIN 7.5 GM/DL (6.4-8.2)
[2018-10-17 09:11] LABS: CONTROL LINE HCG INT CTR LINE PRESENT; HCG, SERUM QUALITATIVE NEGATIVE (NEGATIVE)
[2018-10-17] MEDS ORDERED: ISOVUE-370 76% 100ML VIAL (Q9967) As Ordered (09:41)
[2018-10-17 10:03] LABS: LEUKOCYTE ESTERASE UR AUTO RFX TRACE (NEGATIVE); WBC, URINE AUTO RFX 12 /HPF (0-3)
== END 2018-10-17 14:31 | disposition home or self-care (01) ==
LOC: M ED 07:44
DX: R10.9 Unspecified abdominal pain (principal); R11.2 Nausea with vomiting, unspecified; F33.9 Major depressive disorder, recurrent, unspecified; F41.9 Anxiety disorder, unspecified; F25.9 Schizoaffective disorder, unspecified; Z88.0 Allergy status to penicillin; Z88.8 Allergy status to other drugs, medicaments and biological substances; F17.210 Nicotine dependence, cigarettes, uncomplicated
CPT/HCPCS: J2270

== ENCOUNTER 2018-10-26 12:45 | Inpatient (IN) | payer OTHER ==
[2018-10-26 14:09] LABS: HEMATOCRIT 35.4 % (36.0-47.0); HEMOGLOBIN 12.2 g/dl (12.0-15.5); MEAN CORPUSCULAR HGB CONC 34.5 g/dl (32.0-36.5); MEAN CORPUSCULAR VOLUME 87.2 fl (80.0-96.0); PLATELET COUNT, AUTOMATED 400 10^3/uL (150-450); RED BLOOD COUNT 4.06 10^6/uL (4.00-5.40); RED CELL DISTRIBUTION WIDTH 12.5 % (11.5-14.5); WHITE BLOOD COUNT 27.1 10^3/uL (4.0-10.0)
[2018-10-26 14:12] LABS: KETONE, URINE AUTO RFX NEGATIVE (NEGATIVE); LEUKOCYTE ESTERASE UR AUTO RFX NEGATIVE (NEGATIVE); NITRITE, URINE AUTO RFX NEGATIVE (NEGATIVE); RBC, URINE AUTO RFX 1 /HPF (0-3); SPECIFIC GRAVITY UR AUTO RFX 1.002 (1.002-1.035); SQUAM EPITHELIAL CELL UR AURFX 2 /HPF (0-6); WBC, URINE AUTO RFX 1 /HPF (0-3)
[2018-10-26 14:31] LABS: AMPHETAMINES LEVEL URINE NEGATIVE (NEGATIVE); BARBITURATES URINE NEGATIVE (NEGATIVE); BENZODIAZEPINES URINE NEGATIVE (NEGATIVE); CANNABINOIDS URINE POSITIVE (NEGATIVE); COCAINE METABOLITE URINE NEGATIVE (NEGATIVE); METHADONE URINE NEGATIVE (NEGATIVE); OPIATES URINE NEGATIVE (NEGATIVE); PHENCYCLIDINE URINE NEGATIVE (NEGATIVE)
[2018-10-26 14:48] LABS: CONTROL LINE HCG INT CTR LINE PRESENT; HCG, SERUM QUALITATIVE NEGATIVE (NEGATIVE)
[2018-10-26 14:51] LABS: ACETAMINOPHEN LEVEL 2.1 UG/ML (10.0-30.0); ALBUMIN 3.4 GM/DL (3.2-5.2); ALBUMIN/GLOBULIN RATIO 0.92 (1.00-1.93); ALKALINE PHOSPHATASE 78 U/L (45-117); ALT/SGPT 10 U/L (12-78); ANION GAP 12 MEQ/L (8-16); AST/SGOT 8 U/L (7-37); BILIRUBIN,DIRECT 0.2 MG/DL (0.0-0.2); BILIRUBIN,TOTAL 0.6 MG/DL (0.2-1.0); BLOOD UREA NITROGEN 8 MG/DL (7-18); CALCIUM LEVEL 8.4 MG/DL (8.5-10.1); CARBON DIOXIDE LEVEL 25 MEQ/L (21-32); CHLORIDE LEVEL 101 MEQ/L (98-107); CREATININE FOR GFR 0.87 MG/DL (0.55-1.30); ETHYL ALCOHOL (ETHANOL) < 0.003 % (0.000-0.010); GLOMERULAR FILTRATION RATE > 60.0 (>60); GLUCOSE, FASTING 94 MG/DL (70-100); LIPASE 60 U/L (73-393); POTASSIUM SERUM 3.7 MEQ/L (3.5-5.1); SALICYLATE LEVEL < 1.7 MG/DL (5.0-30.0); SODIUM LEVEL 138 MEQ/L (136-145); THYROID STIMULATING HORMONE 0.267 uIU/ML (0.358-3.740); TOTAL PROTEIN 7.1 GM/DL (6.4-8.2)
[2018-10-26] MEDS: NS 1,000 ML IV ×2 (16:08→23:46)
[2018-10-26] MEDS: DOXYCYCLINE HYCLATE 100 MG in D5W MINI-BAG PLUS 100 ML IV (16:08)
[2018-10-26] MEDS: ONDANSETRON 4 MG ORAL DISINTEGRATING TAB (Q0162 PER 1MG) PO (16:08)
[2018-10-26] MEDS: ACETAMINOPHEN TAB 650MG DOSE (2X325MG) PO (16:08)
[2018-10-26] MEDS ORDERED: KETOROLAC 30 MG/ML VIAL (J1885) As Ordered (16:56)
[2018-10-26] MEDS: KETOROLAC 30 MG/ML VIAL (J1885) IV (17:02)
[2018-10-26] MEDS: cefoTEtan DISODIUM 2 GM in D5W MINI-BAG PLUS 50 ML IV (17:20)
[2018-10-26] MEDS ORDERED: BISACODYL 5 MG TAB PO (18:00)
[2018-10-26 19:11] LABS: FREE T4 1.44 NG/DL (0.76-1.46)
[2018-10-26 19:42] LABS: CHLAMYDIA DNA AMPLIFICATION NEGATIVE (NEGATIVE); GC DNA AMPLIFICATION POSITIVE (NEGATIVE)
[2018-10-26] MEDS: metroNIDAZOLE (FLAGYL) 500 MG TAB PO (23:48)
[2018-10-27] MEDS: DOXYCYCLINE HYCLATE 100 MG in D5W MINI-BAG PLUS 100 ML IV ×2 (04:05→16:57)
[2018-10-27] MEDS: NS 1,000 ML IV ×3 (05:30→19:43)
[2018-10-27] MEDS: cefoTEtan DISODIUM 2 GM in D5W MINI-BAG PLUS 50 ML IV ×2 (05:30→18:06)
[2018-10-27] MEDS: metroNIDAZOLE (FLAGYL) 500 MG TAB PO ×2 (05:34→14:44)
[2018-10-27] MEDS: KETOROLAC 30 MG/ML VIAL (J1885) IV ×2 (05:35→16:57)
[2018-10-27 06:17] LABS: HEMATOCRIT 32.5 % (36.0-47.0); MEAN CORPUSCULAR HEMOGLOBIN 29.5 pg (27.0-33.0); MEAN CORPUSCULAR HGB CONC 33.8 g/dl (32.0-36.5); MEAN CORPUSCULAR VOLUME 87.1 fl (80.0-96.0); PLATELET COUNT, AUTOMATED 338 10^3/uL (150-450); RED BLOOD COUNT 3.73 10^6/uL (4.00-5.40); RED CELL DISTRIBUTION WIDTH 12.5 % (11.5-14.5); WHITE BLOOD COUNT 18.5 10^3/uL (4.0-10.0)
[2018-10-27] MEDS: LACTOBACILLUS ACIDOPHILUS CAP (BACID) PO ×2 (08:56→17:40)
[2018-10-27] MEDS ORDERED: AZITHROMYCIN 250 MG TAB PO (14:00)
[2018-10-27] MEDS: LIDOCAINE 1% SDV 5 ML VIAL DILUENT (14:32)
[2018-10-27] MEDS ORDERED: cefTRIAXone SOD 250 MG VIAL (J0696) IM (15:00)
[2018-10-27] MEDS: ONDANSETRON 4 MG TAB (S0181) PO (15:04)
[2018-10-27] MEDS: metroNIDAZOLE 500 MG in APPROPRIATE DILUENT 1 EA IV (15:49)
[2018-10-27] MEDS: ACETAMINOPHEN TAB 650MG DOSE (2X325MG) PO (17:07)
[2018-10-28] MEDS: metroNIDAZOLE 500 MG in APPROPRIATE DILUENT 1 EA IV ×4 (00:13→23:00)
[2018-10-28] MEDS: NS 1,000 ML IV ×4 (00:14→22:59)
[2018-10-28] MEDS: DOXYCYCLINE HYCLATE 100 MG in D5W MINI-BAG PLUS 100 ML IV ×2 (03:30→15:11)
[2018-10-28] MEDS: cefoTEtan DISODIUM 2 GM in D5W MINI-BAG PLUS 50 ML IV ×2 (06:14→17:41)
[2018-10-28 06:17] LABS: BASO % 0.1 % (0.0-1.0); EOS # 0.1 10^3/uL (0.0-0.50); EOS % 0.5 % (0.0-3.0); HEMATOCRIT 30.9 % (36.0-47.0); HEMOGLOBIN 10.5 g/dl (12.0-15.5); IMMATURE GRANULOCYTE % 0.6 % (0-3.0); LYMPH # 1.8 10^3/uL (1.5-6.5); LYMPH % 13.1 % (24.0-44.0); MEAN CORPUSCULAR HEMOGLOBIN 29.8 pg (27.0-33.0); MEAN CORPUSCULAR VOLUME 87.8 fl (80.0-96.0); MONO # 0.7 10^3/uL (0.0-0.8); MONO % 5.3 % (0.0-5.0); NEUTROPHILS # 10.9 10^3/uL (1.8-7.7); NEUTROPHILS % 80.4 % (36.0-66.0); PLATELET COUNT, AUTOMATED 373 10^3/uL (150-450); RED BLOOD COUNT 3.52 10^6/uL (4.00-5.40); RED CELL DISTRIBUTION WIDTH 12.8 % (11.5-14.5); WHITE BLOOD COUNT 13.5 10^3/uL (4.0-10.0)
[2018-10-28] MEDS: LACTOBACILLUS ACIDOPHILUS CAP (BACID) PO ×2 (08:41→17:41)
[2018-10-28] MEDS: ONDANSETRON 4MG/2ML VIAL (J2405) IV (15:42)
[2018-10-29] MEDS: DOXYCYCLINE HYCLATE 100 MG in D5W MINI-BAG PLUS 100 ML IV (03:36)
[2018-10-29] MEDS: cefoTEtan DISODIUM 2 GM in D5W MINI-BAG PLUS 50 ML IV (05:28)
[2018-10-29 06:42] LABS: BASO % 0.1 % (0.0-1.0); EOS # 0.1 10^3/uL (0.0-0.50); EOS % 0.9 % (0.0-3.0); HEMATOCRIT 29.1 % (36.0-47.0); IMMATURE GRANULOCYTE % 0.6 % (0-3.0); LYMPH # 1.4 10^3/uL (1.5-6.5); LYMPH % 14.2 % (24.0-44.0); MEAN CORPUSCULAR HEMOGLOBIN 29.7 pg (27.0-33.0); MEAN CORPUSCULAR HGB CONC 34.4 g/dl (32.0-36.5); MEAN CORPUSCULAR VOLUME 86.4 fl (80.0-96.0); MONO # 0.5 10^3/uL (0.0-0.8); MONO % 5.3 % (0.0-5.0); NEUTROPHILS # 7.9 10^3/uL (1.8-7.7); NEUTROPHILS % 78.9 % (36.0-66.0); PLATELET COUNT, AUTOMATED 381 10^3/uL (150-450); RED BLOOD COUNT 3.37 10^6/uL (4.00-5.40); RED CELL DISTRIBUTION WIDTH 12.7 % (11.5-14.5)
[2018-10-29] MEDS: LACTOBACILLUS ACIDOPHILUS CAP (BACID) PO ×2 (07:41→18:00)
[2018-10-29] MEDS: metroNIDAZOLE 500 MG in APPROPRIATE DILUENT 1 EA IV (07:41)
[2018-10-29] MEDS: ONDANSETRON 4 MG ORAL DISINTEGRATING TAB (Q0162 PER 1MG) PO ×2 (07:41→17:12)
[2018-10-29] MEDS: NS 1,000 ML IV (07:42)
[2018-10-29] MEDS: LevoFLOXacin 500 MG TABLET PO (08:25)
[2018-10-29] MEDS: IBUPROFEN 800 MG TAB PO (11:20)
[2018-10-29] MEDS: metroNIDAZOLE (FLAGYL) 500 MG TAB PO (14:27)
[2018-10-29] MEDS ORDERED: MAALOX 30 ML SUSP *UDC PO (16:15)
[2018-10-29] MEDS ORDERED: ACETAMINOPHEN TAB 650MG DOSE (2X325MG) PO (16:15)
[2018-10-29] MEDS ORDERED: traZODone 50 MG TAB PO (16:15)
[2018-10-29] MEDS ORDERED: MOM 30ML SUSPENSION UDC PO (16:15)
[2018-10-29] MEDS ORDERED: DOXYCYCLINE HYCLATE 100 MG TAB PO (21:00)
== END 2018-10-29 20:25 | DRG 758 ==
LOC: M ED 12:45 → M ED INP 17:28 → M MSPAV 23:26
PROVIDERS: Obstetrics & Gynecology
DX: N70.03 Acute salpingitis and oophoritis (principal); R45.851 Suicidal ideations; N73.9 Female pelvic inflammatory disease, unspecified; R45.850 Homicidal ideations; F31.9 Bipolar disorder, unspecified; Z88.1 Allergy status to other antibiotic agents; Z88.8 Allergy status to other drugs, medicaments and biological substances; F60.3 Borderline personality disorder

== ENCOUNTER → 2018-10-26 | Outpatient (REF) | payer OTHER ==
[~2018-10-26] MED LIST changes: +ACET1TAB55 PO; +ARIP10TAB PO; +Acetaminophen Tab PO; +CLEO150C PO; +COLA100C5 PO; +CYCL5TAB PO; +DICL75TA PO; +DIPH25CA PO; +DOXY-350 PO; +DOXY100T PO; +EFFE75CA2 PO; +FLAG500T PO; +IBUP200T45 PO; +IBUP80TA PO; +LEVA1TAB2 PO; +LEXA5TAB13 PO; +OLAN10TA12 PO; +ONDA4TAB6 PO; +PATIENT COMMENTS; +PRED20TA PO; +PROBCAP14 PO; +REGL10TA6 PO; +THERTAB PO; +TRAZ-160 PO; +VENL75CA47 PO; +VENTAER INH; +ZITHTAB PO; +ZOFR4TAB14 PO
[2018-10-26 13:34] LABS: AMORPHOUS SEDIMENT MODERATE (NEGATIVE); APPEARANCE, URINE TURBID (CLEAR); BACTERIA, URINE AUTO NEGATIVE (NEGATIVE); BILIRUBIN, URINE AUTO NEGATIVE (NEGATIVE); BLOOD, URINE BLOOD 2+ (NEGATIVE); COLOR, URINE YELLOW (YELLOW); GLUCOSE, URINE (UA) AUTO NEGATIVE (NEGATIVE); KETONE, URINE AUTO TRACE mg/dL (NEGATIVE); LEUKOCYTE ESTERASE, URINE AUTO 1+ (NEGATIVE); MUCUS, URINE LARGE (NEGATIVE); NITRITE, URINE AUTO NEGATIVE (NEGATIVE); PROTEIN, URINE AUTO 1+ mg/dL (NEGATIVE); RBC, URINE AUTO 5 /HPF (0-3); SPECIFIC GRAVITY URINE AUTO 1.026 (1.002-1.035); SQUAMOUS EPITHELIAL CELL UR AU 10 /HPF (0-6); WBC, URINE AUTO 23 /HPF (0-3)
== END ==
LOC: M LAB REF 13:10
PROVIDERS: ATTEND Physician Assistant
DX: N39.0 Urinary tract infection, site not specified (principal)

== ENCOUNTER 2018-10-29 20:30 | Inpatient (IN) | payer OTHER ==
[~2018-10-29 20:30] MED LIST changes: -ABIL400I IM; -ACET1TAB55 PO; +ACETAMINOPHEN TAB 650MG DOSE (2X325MG) PO; -ADVI200C5 PO; -ARIP10TAB PO; -ARIP15TAB PO; -Acetaminophen Tab PO; -CLEO150C PO; -COLA100C5 PO; -CYCL5TAB PO; -DICL75TA PO; -DIPH25CA PO; -DOXY-350 PO; -DOXY100T PO; -EFFE75CA2 PO; -ESCI10TA2 PO; -FLAG500T PO; -FLUO10CA9 PO; -HYDR-3363 PO; -IBUP200T45 PO; -IBUP80TA PO; -LEVA1TAB2 PO; -LEXA5TAB13 PO; +MAALOX 30 ML SUSP *UDC PO; +MOM 30ML SUSPENSION UDC PO; -NICO7PA TD; -OLAN10TA12 PO; -ONDA4TAB6 PO; -PATIENT COMMENTS; -PRED20TA PO; -PROBCAP14 PO; -REGL10TA6 PO; -THERTAB PO; -TRAZ-160 PO; -TRAZO50TA PO; -VENL75CA47 PO; -VENTAER INH; -ZITHTAB PO; -ZOFR4TAB14 PO
[2018-10-30] MEDS: diphenhydrAMINE 50 MG CAP PO ×2 (00:07→21:37)
[2018-10-30] MEDS: LORazepam 2 MG TAB PO (00:08)
[2018-10-30] MEDS: HALOPERIDOL 5 MG TAB PO (00:08)
[2018-10-30] MEDS: metroNIDAZOLE (FLAGYL) 500 MG TAB PO ×3 (06:02→21:01)
[2018-10-30] MEDS: LevoFLOXacin 500 MG TABLET PO (06:02)
[2018-10-30] MEDS: DOXYCYCLINE HYCLATE 100 MG TAB PO ×2 (08:08→21:01)
[2018-10-30] MEDS: LORazepam 2 MG/ML VIAL (J2060) IM (08:38)
[2018-10-30] MEDS: HALOPERIDOL 5 MG/ML VIAL (J1630) IM (08:38)
[2018-10-30] MEDS: ONDANSETRON 4 MG ORAL DISINTEGRATING TAB (Q0162 PER 1MG) PO (21:40)
[2018-10-31] MEDS: LevoFLOXacin 500 MG TABLET PO ×2 (06:00→06:07)
[2018-10-31] MEDS: metroNIDAZOLE (FLAGYL) 500 MG TAB PO ×3 (06:07→21:41)
[2018-10-31] MEDS: IBUPROFEN 800 MG TAB PO (06:48)
[2018-10-31] MEDS: DOXYCYCLINE HYCLATE 100 MG TAB PO ×2 (08:51→21:41)
[2018-10-31] MEDS: VENLAFAXINE **XR** 37.5 MG CAPSULE PO (11:20)
[2018-10-31] MEDS: diphenhydrAMINE 25 MG CAP PO (11:20)
[2018-10-31] MEDS: ONDANSETRON 4 MG ORAL DISINTEGRATING TAB (Q0162 PER 1MG) PO (15:55)
[2018-10-31] MEDS: OLANZapine ORAL DISINTEGRATING TAB 5MG PO (17:22)
[2018-11-01] MEDS: IBUPROFEN 800 MG TAB PO ×3 (01:34→18:12)
[2018-11-01] MEDS: traZODone 50 MG TAB PO ×2 (01:34→23:35)
[2018-11-01] MEDS: LevoFLOXacin 500 MG TABLET PO (06:00)
[2018-11-01] MEDS: metroNIDAZOLE (FLAGYL) 500 MG TAB PO ×3 (06:02→21:47)
[2018-11-01] MEDS: DOXYCYCLINE HYCLATE 100 MG TAB PO ×2 (08:09→21:47)
[2018-11-01] MEDS: VENLAFAXINE **XR** 37.5 MG CAPSULE PO ×2 (08:09→10:03)
[2018-11-01] MEDS: CLINDAMYCIN 150 MG CAP PO ×4 (10:03→21:47)
[2018-11-01] MEDS: OLANZapine ORAL DISINTEGRATING TAB 5MG PO (11:34)
[2018-11-01] MEDS: ONDANSETRON 4 MG ORAL DISINTEGRATING TAB (Q0162 PER 1MG) PO (23:15)
[2018-11-02] MEDS: metroNIDAZOLE (FLAGYL) 500 MG TAB PO (05:04)
[2018-11-02 06:37] LABS: HEMATOCRIT 33.9 % (36.0-47.0); HEMOGLOBIN 11.3 g/dl (12.0-15.5); MEAN CORPUSCULAR HEMOGLOBIN 29.7 pg (27.0-33.0); MEAN CORPUSCULAR HGB CONC 33.3 g/dl (32.0-36.5); PLATELET COUNT, AUTOMATED 478 10^3/uL (150-450); RED BLOOD COUNT 3.81 10^6/uL (4.00-5.40); RED CELL DISTRIBUTION WIDTH 13.1 % (11.5-14.5); WHITE BLOOD COUNT 5.1 10^3/uL (4.0-10.0)
[2018-11-02] MEDS: IBUPROFEN 800 MG TAB PO (07:57)
[2018-11-02] MEDS: diphenhydrAMINE 25 MG CAP PO (07:57)
[2018-11-02] MEDS: VENLAFAXINE **XR** 75MG CAPSULE PO (08:11)
[2018-11-02] MEDS: DOXYCYCLINE HYCLATE 100 MG TAB PO (08:12)
[2018-11-02] MEDS: CLINDAMYCIN 150 MG CAP PO ×2 (08:12→12:18)
[2018-11-02] MEDS: ONDANSETRON 4 MG ORAL DISINTEGRATING TAB (Q0162 PER 1MG) PO (09:19)
[2018-11-02] MEDS: LACTOBACILLUS ACIDOPHILUS CAP (BACID) PO (09:50)
== END 2018-11-02 12:25 | disposition home or self-care (01) | DRG 885 ==
LOC: M PSY 10-30 20:12
DX: F31.60 Bipolar disorder, current episode mixed, unspecified (principal); F60.3 Borderline personality disorder; Z88.0 Allergy status to penicillin; Z88.8 Allergy status to other drugs, medicaments and biological substances; F41.9 Anxiety disorder, unspecified; F17.200 Nicotine dependence, unspecified, uncomplicated; Z79.899 Other long term (current) drug therapy

== ENCOUNTER 2018-11-04 23:12 | Emergency (ER) | payer OTHER ==
[~2018-11-04] VITALS: Ht 165.1 cm; Wt 59.0 kg
[~2018-11-04 23:12] MED LIST changes: +ABIL400I IM; -ACETAMINOPHEN TAB 650MG DOSE (2X325MG) PO; +ADVI200C5 PO; +ARIP10TAB PO; +ARIP15TAB PO; +Acetaminophen Tab PO; +CLEO150C PO; +COLA100C5 PO; +CYCL5TAB PO; +DICL75TA PO; +DIPH25CA PO; +DOXY-350 PO; +DOXY100T PO; +ESCI10TA2 PO; +FLAG500T PO; +FLUO10CA9 PO; +HYDR-3363 PO; +IBUP200T45 PO; +IBUP80TA PO; +LEVA1TAB2 PO; +LEXA5TAB13 PO; -MAALOX 30 ML SUSP *UDC PO; -MOM 30ML SUSPENSION UDC PO; +NICO7PA TD; +OLAN10TA12 PO; +ONDA4TAB6 PO; +PATIENT COMMENTS; +PRED20TA PO; +THERTAB PO; +TRAZO50TA PO; +VENL75CA47 PO; +VENTAER INH; +ZITHTAB PO; +ZOFR4TAB14 PO
[2018-11-04] MEDS ORDERED: PROBCAP14 PO (23:37)
[2018-11-05] MEDS ORDERED: METOCLOPRAMIDE INJ 10MG/2ML VIAL (J2765) IV ONE (00:15)
[2018-11-05] MEDS ORDERED: NS 1,000 ML IV ONE (00:15)
[2018-11-05 01:05] LABS: BASO % 0.5 % (0.0-1.0); EOS % 0.2 % (0.0-3.0); HEMATOCRIT 38.1 % (36.0-47.0); HEMOGLOBIN 12.7 g/dl (12.0-15.5); LYMPH # 1.7 10^3/uL (1.5-6.5); LYMPH % 24.9 % (24.0-44.0); MEAN CORPUSCULAR HEMOGLOBIN 29.3 pg (27.0-33.0); MEAN CORPUSCULAR HGB CONC 33.3 g/dl (32.0-36.5); MONO # 0.3 10^3/uL (0.0-0.8); NEUTROPHILS # 4.6 10^3/uL (1.8-7.7); NEUTROPHILS % 68.8 % (36.0-66.0); PLATELET COUNT, AUTOMATED 506 10^3/uL (150-450); RED BLOOD COUNT 4.33 10^6/uL (4.00-5.40); WHITE BLOOD COUNT 6.7 10^3/uL (4.0-10.0)
[2018-11-05 01:23] LABS: HCG, SERUM QUALITATIVE NEGATIVE (NEGATIVE)
[2018-11-05] MEDS ORDERED: KETOROLAC 30 MG/ML VIAL (J1885) IV ONE (01:30)
[2018-11-05 01:34] LABS: ALBUMIN 3.8 GM/DL (3.2-5.2); ALT/SGPT 15 U/L (12-78); BILIRUBIN,DIRECT 0.1 MG/DL (0.0-0.2); BILIRUBIN,TOTAL 0.3 MG/DL (0.2-1.0); BLOOD UREA NITROGEN 11 MG/DL (7-18); CALCIUM LEVEL 9.2 MG/DL (8.5-10.1); CARBON DIOXIDE LEVEL 27 MEQ/L (21-32); CHLORIDE LEVEL 104 MEQ/L (98-107); CREATININE FOR GFR 0.74 MG/DL (0.55-1.30); ETHYL ALCOHOL (ETHANOL) < 0.003 % (0.000-0.010); GLOMERULAR FILTRATION RATE > 60.0 (>60); GLUCOSE, FASTING 92 MG/DL (70-100); LIPASE 84 U/L (73-393); POTASSIUM SERUM 4.2 MEQ/L (3.5-5.1); SODIUM LEVEL 139 MEQ/L (136-145); TOTAL PROTEIN 7.6 GM/DL (6.4-8.2)
[2018-11-05 02:00] LABS: AMPHETAMINES LEVEL URINE NEGATIVE (NEGATIVE); BARBITURATES URINE NEGATIVE (NEGATIVE); BENZODIAZEPINES URINE NEGATIVE (NEGATIVE); CANNABINOIDS URINE POSITIVE (NEGATIVE); COCAINE METABOLITE URINE NEGATIVE (NEGATIVE); METHADONE URINE NEGATIVE (NEGATIVE); OPIATES URINE NEGATIVE (NEGATIVE); PHENCYCLIDINE URINE NEGATIVE (NEGATIVE)
[2018-11-05] MEDS ORDERED: REGL10TA6 PO (03:46)
[2018-11-05 04:00] VITALS: BP 102/53
== END 2018-11-05 04:09 | disposition home or self-care (01) ==
LOC: M ED 23:12
DX: K29.70 Gastritis, unspecified, without bleeding (principal); F17.210 Nicotine dependence, cigarettes, uncomplicated; Z72.89 Other problems related to lifestyle; Z79.899 Other long term (current) drug therapy; Z79.2 Long term (current) use of antibiotics; Z88.0 Allergy status to penicillin
CPT/HCPCS: 36415; 80048; 80076; 80307; 83690; 84703; 85025; 96374; 96375; 99284; G0480; J1885; J2765

== ENCOUNTER 2018-11-11 12:53 | Inpatient (IN) | payer OTHER ==
[~2018-11-11] VITALS: Ht 165.1 cm; Wt 58.2 kg
[~2018-11-11 12:53] MED LIST changes: +PROBCAP14 PO; +REGL10TA6 PO
[2018-11-11 14:43] LABS: HEMATOCRIT 35.9 % (36.0-47.0); HEMOGLOBIN 11.8 g/dl (12.0-15.5); MEAN CORPUSCULAR HEMOGLOBIN 29.1 pg (27.0-33.0); MEAN CORPUSCULAR HGB CONC 32.9 g/dl (32.0-36.5); MEAN CORPUSCULAR VOLUME 88.6 fl (80.0-96.0); PLATELET COUNT, AUTOMATED 321 10^3/uL (150-450); RED BLOOD COUNT 4.05 10^6/uL (4.00-5.40); WHITE BLOOD COUNT 8.8 10^3/uL (4.0-10.0)
[2018-11-11 15:08] LABS: AMPHETAMINES LEVEL URINE NEGATIVE (NEGATIVE); BARBITURATES URINE NEGATIVE (NEGATIVE); BENZODIAZEPINES URINE NEGATIVE (NEGATIVE); CANNABINOIDS URINE POSITIVE (NEGATIVE); COCAINE METABOLITE URINE NEGATIVE (NEGATIVE); METHADONE URINE NEGATIVE (NEGATIVE); OPIATES URINE NEGATIVE (NEGATIVE); PHENCYCLIDINE URINE NEGATIVE (NEGATIVE)
[2018-11-11 15:10] LABS: HCG, SERUM QUALITATIVE NEGATIVE (NEGATIVE)
[2018-11-11 15:12] LABS: ACETAMINOPHEN LEVEL < 2.0 UG/ML (10.0-30.0); ALBUMIN 3.8 GM/DL (3.2-5.2); ALT/SGPT 15 U/L (12-78); BILIRUBIN,DIRECT < 0.1 MG/DL (0.0-0.2); BILIRUBIN,TOTAL 0.2 MG/DL (0.2-1.0); BLOOD UREA NITROGEN 10 MG/DL (7-18); CALCIUM LEVEL 8.5 MG/DL (8.5-10.1); CARBON DIOXIDE LEVEL 27 MEQ/L (21-32); CHLORIDE LEVEL 106 MEQ/L (98-107); CREATININE FOR GFR 0.68 MG/DL (0.55-1.30); ETHYL ALCOHOL (ETHANOL) < 0.003 % (0.000-0.010); GLOMERULAR FILTRATION RATE > 60.0 (>60); GLUCOSE, FASTING 84 MG/DL (70-100); POTASSIUM SERUM 4.1 MEQ/L (3.5-5.1); SALICYLATE LEVEL < 1.7 MG/DL (5.0-30.0); SODIUM LEVEL 140 MEQ/L (136-145); THYROID STIMULATING HORMONE 0.312 uIU/ML (0.358-3.740); TOTAL PROTEIN 6.9 GM/DL (6.4-8.2)
[2018-11-11] MEDS ORDERED: traZODone 50 MG TAB PO PRN (16:30)
[2018-11-11] MEDS ORDERED: MAALOX 30 ML SUSP *UDC PO PRN (16:30)
[2018-11-11] MEDS ORDERED: MOM 30ML SUSPENSION UDC PO PRN (16:30)
[2018-11-11] MEDS ORDERED: ACET1TAB55 PO (17:10)
[2018-11-11] MEDS ORDERED: TRAZ-160 PO (17:10)
[2018-11-11] MEDS ORDERED: EFFE75CA2 PO (17:10)
[2018-11-11] MEDS ORDERED: DIPH25CA PO (17:10)
[2018-11-11] MEDS ORDERED: IBUP80TA PO (17:10)
[2018-11-11 17:57] VITALS: BP 127/72
[2018-11-11] MEDS: ACETAMINOPHEN TAB 650MG DOSE (2X325MG) PO PRN (18:14)
[2018-11-12] VITALS (13 sets, daily range): BP systolic 92–138; BP diastolic 58–84
[2018-11-12] MEDS ORDERED: diphenhydrAMINE INJ 50MG/ML VIAL (J1200) IM STA ×2 (08:33→08:41)
[2018-11-12] MEDS ORDERED: LORazepam 2 MG/ML VIAL (J2060) IM STA ×2 (08:33→08:41)
[2018-11-12] MEDS ORDERED: chlorproMAZINE INJ 50MG/2ML AMP (J3230) IM STA ×2 (08:33→08:41)
[2018-11-12] MEDS ORDERED: LORazepam 2 MG/ML VIAL (J2060) As Ordered ONE (08:37)
[2018-11-12] MEDS ORDERED: diphenhydrAMINE INJ 50MG/ML VIAL (J1200) As Ordered ONE (08:37)
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
[2018-11-12] MEDS: VENLAFAXINE **XR** 75MG CAPSULE PO SCH (13:08)
[2018-11-13 06:31] VITALS: BP 117/72
[2018-11-13] MEDS: VENLAFAXINE **XR** 75MG CAPSULE PO SCH (09:46)
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
[2018-11-13] MEDS: LORazepam 2 MG TAB PO PRN (16:42)
[2018-11-13] MEDS: OLANZapine ORAL DISINTEGRATING TAB 5MG PO PRN (16:42)
[2018-11-13 18:00] VITALS: BP 111/78
[2018-11-14 06:19] VITALS: BP 132/67
[2018-11-14 07:51] LABS: FREE THYROXINE INDEX 2.7 % (1.3-4.8); THYROID STIMULATING HORMONE 0.633 uIU/ML (0.358-3.740); THYROXINE (T4) 8.3 UG/DL (4.5-12.0)
[2018-11-14] MEDS: VENLAFAXINE **XR** 37.5 MG CAPSULE PO SCH (08:39)
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
[2018-11-14] MEDS: LORazepam 2 MG TAB PO PRN (16:25)
[2018-11-14] MEDS: OLANZapine ORAL DISINTEGRATING TAB 5MG PO PRN (16:25)
[2018-11-14] MEDS: diphenhydrAMINE 25 MG CAP PO PRN (16:25)
[2018-11-14 18:00] VITALS: BP_SYST 114; BP_SYST 130; BP_DIAS 68; BP_DIAS 74
[2018-11-15 07:13] VITALS: BP 141/80
[2018-11-15] MEDS: VENLAFAXINE **XR** 37.5 MG CAPSULE PO SCH (08:29)
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
[2018-11-15] MEDS: ACETAMINOPHEN TAB 650MG DOSE (2X325MG) PO PRN (17:09)
[2018-11-15 18:00] VITALS: BP 121/78
[2018-11-16] MEDS ORDERED: LevoFLOXacin 500 MG TABLET PO SCH (06:00)
[2018-11-16 06:06] VITALS: BP 120/74
[2018-11-16] MEDS: ACETAMINOPHEN TAB 650MG DOSE (2X325MG) PO PRN (08:48)
[2018-11-16] MEDS: VENLAFAXINE **XR** 37.5 MG CAPSULE PO SCH (08:48)
[2018-11-16] MEDS ORDERED: DOXYCYCLINE HYCLATE 100 MG TAB PO SCH (09:00)
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
[2018-11-16] MEDS ORDERED: VENLAFAXINE **XR** 37.5 MG CAPSULE PO ONE (10:00)
[2018-11-16] MEDS: diphenhydrAMINE 25 MG CAP PO PRN ×2 (13:14→18:59)
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
[2018-11-16] MEDS ORDERED: metroNIDAZOLE (FLAGYL) 500 MG TAB PO SCH (14:00)
[2018-11-16 15:00] LABS: HEMATOCRIT 37.3 % (36.0-47.0); HEMOGLOBIN 12.3 g/dl (12.0-15.5); MEAN CORPUSCULAR HEMOGLOBIN 29.6 pg (27.0-33.0); MEAN CORPUSCULAR VOLUME 89.9 fl (80.0-96.0); PLATELET COUNT, AUTOMATED 272 10^3/uL (150-450); RED BLOOD COUNT 4.15 10^6/uL (4.00-5.40); WHITE BLOOD COUNT 5.5 10^3/uL (4.0-10.0)
[2018-11-16 15:24] LABS: ALT/SGPT 18 U/L (12-78); BILIRUBIN,TOTAL 0.2 MG/DL (0.2-1.0); BLOOD UREA NITROGEN 15 MG/DL (7-18); CARBON DIOXIDE LEVEL 29 MEQ/L (21-32); CHLORIDE LEVEL 103 MEQ/L (98-107); CREATININE FOR GFR 0.77 MG/DL (0.55-1.30); GLOMERULAR FILTRATION RATE > 60.0 (>60); GLUCOSE, FASTING 77 MG/DL (70-100); SODIUM LEVEL 138 MEQ/L (136-145); TOTAL PROTEIN 7.2 GM/DL (6.4-8.2)
--- NOTE | 2018-11-16 16:40 | REP ---
PELVIC AND ENDOVAGINAL PROBE ULTRASOUND: 11/16/2018. Comparison: Ultrasound 10/26/2018, CT 10/17/2018. Clinical history: Follow-up tubo-ovarian abscess. Findings: Transabdominal and endovaginal probes were utilized. Bladder adequately filled measuring 8.3 x 5.1 x 4.8 cm. Uterus is anteverted. It measures 6.7 x 3.1 x 4.7 cm. It has smooth regular margins. There is no mass in the myometrium. The central endometrial echogenic stripe has a thickness of 9.3 mm which appears normal. No fluid in the endometrial cavity or endocervical canal. The right ovary is 4.7 x 3 x 3.9 cm and shows some small sub-centimeter follicles as well as intact color Doppler fluid. Resistive index of 0.52. The left ovary is 4.8 x 4.2 x 2.4 cm and also has a scattered sub centimeter follicles with normal color flow and Doppler tracing with resistive index of 0.51, also normal. No solid or cystic mass in the ovaries. There is a moderate amount of free fluid in the pelvis but in addition in the left adnexa medial to the ovary is 2.1 x 2.1 x 1.2 cm complex cystic area that may reflect resolving tubal ovarian abscess. This, this is a complex fluid collection and a smaller area of fluid adjacent to the right ovary is noted. Impression: 1. A complex cystic area medial to the left ovary in the adnexal region 2.1 x 2.1 x 1.2 cm may reflect resolving tubal ovarian abscess, smaller than previous exam. Some small to moderate amount of free fluid in the pelvis. The right ovary and uterus are unremarkable. The left ovary showed no discrete mass as the above finding was adjacent to it. Normal Doppler to both ovaries. Electronically Signed by Tung Dukes MD 11/16/2018 05:07 P
--- NOTE | 2018-11-16 17:50 | IPNPDOC ---
Text Note Date of Service The patient was seen on 11/16/18. NOTE OBGYN consult note I was consulted by Barbara Scott to evaluate for resolution of Allison's bilateral TOA which she was treated for inpatient Oct 26- by Dr. Álvarez. She has been re-admitted since that time for psychiatric reasons, and today endorsed that she did not take the full outpatient course of antibiotics prescribed by Dr. Álvarez (though previously she stated she had- it is noted that she is an unreliable historian). Discharge regimen was doxycycline and flagyl. I have reviewed the prior admission ultrasound, labs, and notes as well as the labs and ultrasound from today. When she was admitted , Allison's WBC count was 27 and at time of discharge it was 10. On Nov 11, it was 8.8 and today it is now 5.5. Thus, it has continued to appropriately downtrend- indicating resolution of infection. Her ultrasound, likewise, shows great improvement. At time of diagnosis of presumed bilateral TOA, she had L TOA 5.4x2.2x3.4cm, R TOA 2.5x2x2.5cm, and a "multicystic structure spanning the midline" [id number]. On today's repeat ultrasound, there is only what is considered a resolving TOA on the left, 2.1x2.1cm and some moderate free fluid in the cul-de-sac. We are now 18 days out from prior discharge. I have considered both options of either continuing doxycycline and flagyl vs not continuing any antibiotics, and at this time I feel that given the very significant improvement in both WBC count and ultrasound findings, and given how far out we are from prior discharge, it would be prudent not to resume antibiotic therapy. I am not sure what we would be treating at this point, and antibiotic therapy is not benign. I expect that the residual fluid on ultrasound will continue to be reabsorbed. I would recommend re-initiating antibiotics IF the patient develops documented fever with recurrent elevation of WBC count and/or she develops worsening abdominal pain in the setting of worsening ultrasound findings. If there are any changes in the patient's symptoms, please do not hesitate to re-consult. MD Emerald Arizmendi VSAndreina I+O VSAndreina I+O Laboratory Tests 11/16/18 14:25 Red Blood Count 4.15, Mean Corpuscular Volume 89.9, Mean Corpuscular Hemoglobin 29.6, Mean Corpuscular Hemoglobin Concent 33.0, Red Cell Distribution Width 13.2, Calcium Level 9.0, Aspartate Amino Transf (AST/SGOT) 16, Alanine Aminotransferase (ALT/SGPT) 18, Alkaline Phosphatase 80, Total Bilirubin 0.2, Total Protein 7.2, Albumin 4.0 Vital Signs Date Time Temp Pulse Resp B/P (MAP) Pulse Ox O2 Delivery O2 Flow Rate FiO2 11/16/18 06:06 98.7 94 16 120/74 (89) Room Air 11/12/18 10:55 98 11/12/18 10:40 Marysol Clark MD Nov 16, 2018 17:50
[2018-11-16 18:00] VITALS: BP 123/79
[2018-11-16] MEDS: IBUPROFEN 600 MG TAB PO PRN (19:00)
[2018-11-16] MEDS ORDERED: ONDANSETRON 4 MG ORAL DISINTEGRATING TAB (Q0162 PER 1MG) PO ONE (22:00)
[2018-11-17] MEDS: IBUPROFEN 600 MG TAB PO PRN ×2 (05:52→22:56)
[2018-11-17] MEDS: diphenhydrAMINE 25 MG CAP PO PRN ×3 (05:52→22:55)
[2018-11-17 06:00] VITALS: BP 120/88
[2018-11-17 06:45] LABS: HEMATOCRIT 39.3 % (36.0-47.0); HEMOGLOBIN 13.1 g/dl (12.0-15.5); MEAN CORPUSCULAR HEMOGLOBIN 29.2 pg (27.0-33.0); MEAN CORPUSCULAR HGB CONC 33.3 g/dl (32.0-36.5); MEAN CORPUSCULAR VOLUME 87.7 fl (80.0-96.0); PLATELET COUNT, AUTOMATED 254 10^3/uL (150-450); RED BLOOD COUNT 4.48 10^6/uL (4.00-5.40); WHITE BLOOD COUNT 4.7 10^3/uL (4.0-10.0)
[2018-11-17 06:57] LABS: ALBUMIN 3.9 GM/DL (3.2-5.2); ALT/SGPT 15 U/L (12-78); BILIRUBIN,TOTAL 0.5 MG/DL (0.2-1.0); BLOOD UREA NITROGEN 11 MG/DL (7-18); CALCIUM LEVEL 9.2 MG/DL (8.5-10.1); CARBON DIOXIDE LEVEL 27 MEQ/L (21-32); CHLORIDE LEVEL 104 MEQ/L (98-107); CREATININE FOR GFR 0.79 MG/DL (0.55-1.30); GLOMERULAR FILTRATION RATE > 60.0 (>60); GLUCOSE, FASTING 82 MG/DL (70-100); POTASSIUM SERUM 4.2 MEQ/L (3.5-5.1); SODIUM LEVEL 139 MEQ/L (136-145); TOTAL PROTEIN 7.4 GM/DL (6.4-8.2)
[2018-11-17] MEDS: VENLAFAXINE **XR** 75MG CAPSULE PO SCH (08:13)
[2018-11-17 18:00] VITALS: BP 116/75
[2018-11-18 06:00] VITALS: BP 118/91
[2018-11-18] MEDS: diphenhydrAMINE 25 MG CAP PO PRN ×2 (08:57→17:18)
[2018-11-18] MEDS: VENLAFAXINE **XR** 75MG CAPSULE PO SCH (08:57)
[2018-11-18] MEDS: IBUPROFEN 600 MG TAB PO PRN (11:11)
[2018-11-18 18:00] VITALS: BP 122/82
[2018-11-19 06:07] VITALS: BP 113/70
[2018-11-19] MEDS: diphenhydrAMINE 25 MG CAP PO PRN (06:31)
[2018-11-19] MEDS: IBUPROFEN 600 MG TAB PO PRN (06:31)
[2018-11-19] MEDS: VENLAFAXINE **XR** 75MG CAPSULE PO SCH (08:11)
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
[2018-11-19] MEDS ORDERED: ARIP5TA PO (09:42)
[2018-11-19] MEDS ORDERED: LEVO500T3 PO (09:43)
[2018-11-19] MEDS ORDERED: DOXY-350 PO (09:44)
[2018-11-19] MEDS ORDERED: FLAG500T PO (09:44)
== END 2018-11-19 12:02 | disposition home or self-care (01) | DRG 885 ==
LOC: M ED 12:53 → M ED INP 16:20 → M PSY 17:18
PROVIDERS: ADMIT Psychiatry & Neurology Psychiatry; ATTEND Psychiatry & Neurology Psychiatry
DX: F31.60 Bipolar disorder, current episode mixed, unspecified (principal); R45.851 Suicidal ideations; F60.3 Borderline personality disorder; F12.90 Cannabis use, unspecified, uncomplicated; F43.10 Post-traumatic stress disorder, unspecified; Z79.899 Other long term (current) drug therapy; F41.9 Anxiety disorder, unspecified; F17.210 Nicotine dependence, cigarettes, uncomplicated; Z88.0 Allergy status to penicillin; Z88.8 Allergy status to other drugs, medicaments and biological substances

== ENCOUNTER 2019-04-27 00:34 | Emergency (ER) | payer OTHER ==
[~2019-04-27] VITALS: Ht 165.1 cm; Wt 63.6 kg
[~2019-04-27 00:34] MED LIST changes: +ACET1TAB55 PO; -ARIP10TAB PO; -ARIP15TAB PO; +ARIP1TAB PO; +ARIP1TAB10 PO; +ARIP1TAB6 PO; +EFFE75CA2 PO; +LEVO500T3 PO; +TRAZ-252 PO; +TRAZ1TAB10 PO; -TRAZO50TA PO
[2019-04-27] MEDS ORDERED: TETANUS/DIPHTHERIA TOX ADSORB ADULT 0.5ML SYR/VIAL (90714) IM ONE (01:00)
[2019-04-27] MEDS ORDERED: BACTRIM 160MG/800MG DS TAB PO ONE (01:00)
[2019-04-27] MEDS ORDERED: BACT800T5 PO (01:51)
[2019-04-27 02:50] VITALS: BP 129/85
--- NOTE | 2019-04-27 08:58 | REP ---
Left humerus two view : There is no fracture or dislocation. Mineralization and joint spaces are normal. There are no calcifications or foreign bodies. Impression: Negative left humerus . Electronically Signed by Ryan White MD 04/27/2019 08:49 A
== END 2019-04-27 02:57 | disposition home or self-care (01) ==
LOC: M ED 00:34
DX: S41.112A Laceration without foreign body of left upper arm, initial encounter (principal); W26.8XXA Contact with other sharp object(s), not elsewhere classified, initial encounter; Y92.410 Unspecified street and highway as the place of occurrence of the external cause; J45.909 Unspecified asthma, uncomplicated; F60.3 Borderline personality disorder; Z79.899 Other long term (current) drug therapy; Z88.0 Allergy status to penicillin; Z88.1 Allergy status to other antibiotic agents; Z88.8 Allergy status to other drugs, medicaments and biological substances

== ENCOUNTER 2019-05-01 11:22 | Emergency (ER) | payer OTHER ==
[~2019-05-01 11:22] MED LIST changes: +BACT800T5 PO; -DIPH25CA PO; +DIPH25CA32 PO
[2019-05-01 11:23] VITALS: BP 134/87
== END 2019-05-01 12:30 | disposition home or self-care (01) ==
LOC: M ED 11:22
DX: S41.112D Laceration without foreign body of left upper arm, subsequent encounter (principal); W26.8XXD Contact with other sharp object(s), not elsewhere classified, subsequent encounter; J45.909 Unspecified asthma, uncomplicated; F60.3 Borderline personality disorder; F17.210 Nicotine dependence, cigarettes, uncomplicated; Z88.0 Allergy status to penicillin; Z88.1 Allergy status to other antibiotic agents; Z88.8 Allergy status to other drugs, medicaments and biological substances

== ENCOUNTER → 2019-07-26 | Outpatient (CLI) | payer OTHER | LOC: M OUTALCOH 10:24 | PROVIDERS: ATTEND Psychiatry & Neurology Psychiatry | DX: F10.10 Alcohol abuse, uncomplicated (principal); F12.20 Cannabis dependence, uncomplicated ==

== ENCOUNTER 2019-08-25 00:31 | Emergency (ER) | payer OTHER ==
[2019-08-25 01:55] LABS: HEMATOCRIT 39.1 % (36.0-47.0); HEMOGLOBIN 13.2 g/dl (12.0-15.5); MEAN CORPUSCULAR HEMOGLOBIN 30.6 pg (27.0-33.0); MEAN CORPUSCULAR HGB CONC 33.8 g/dl (32.0-36.5); MEAN CORPUSCULAR VOLUME 90.5 fl (80.0-96.0); PLATELET COUNT, AUTOMATED 236 10^3/uL (150-450); RED BLOOD COUNT 4.32 10^6/uL (4.00-5.40); WHITE BLOOD COUNT 9.2 10^3/uL (4.0-10.0)
[2019-08-25 02:51] LABS: ACETAMINOPHEN LEVEL < 2.0 UG/ML (10.0-30.0); ALBUMIN 4.5 GM/DL (3.2-5.2); ALT/SGPT 18 U/L (12-78); BILIRUBIN,DIRECT 0.1 MG/DL (0.0-0.2); BILIRUBIN,TOTAL 0.4 MG/DL (0.2-1.0); BLOOD UREA NITROGEN 16 MG/DL (7-18); CALCIUM LEVEL 8.8 MG/DL (8.5-10.1); CARBON DIOXIDE LEVEL 24 MEQ/L (21-32); CHLORIDE LEVEL 108 MEQ/L (98-107); CREATININE FOR GFR 0.85 MG/DL (0.55-1.30); ETHYL ALCOHOL (ETHANOL) < 0.003 % (0.000-0.010); GLOMERULAR FILTRATION RATE > 60.0 (>60); GLUCOSE, FASTING 93 MG/DL (70-100); POTASSIUM SERUM 3.9 MEQ/L (3.5-5.1); SALICYLATE LEVEL 4.4 MG/DL (5.0-30.0); SODIUM LEVEL 140 MEQ/L (136-145); THYROID STIMULATING HORMONE 0.858 uIU/ML (0.358-3.740); TOTAL PROTEIN 7.6 GM/DL (6.4-8.2)
[2019-08-25 05:54] LABS: AMPHETAMINES LEVEL URINE NEGATIVE (NEGATIVE); BARBITURATES URINE NEGATIVE (NEGATIVE); BENZODIAZEPINES URINE NEGATIVE (NEGATIVE); CANNABINOIDS URINE POSITIVE (NEGATIVE); COCAINE METABOLITE URINE NEGATIVE (NEGATIVE); METHADONE URINE NEGATIVE (NEGATIVE); OPIATES URINE NEGATIVE (NEGATIVE); PHENCYCLIDINE URINE NEGATIVE (NEGATIVE)
[2019-08-25] MEDS ORDERED: LORazepam 1 MG TAB PO ONE (15:15)
--- NOTE | 2019-08-25 19:09 | ECGEPIP ---
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
--- NOTE | 2019-08-26 12:00 | ED PDOC ---
Post-Departure Follow-Up After admission was arranged, the patient was interviewed by Dr. Christian. He ma de the decision to discharge the patient with outpatient referrals. Willy Barakat M.D. Aug 26, 2019 12:00
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
[2019-08-26 12:36] VITALS: BP 126/78
== END 2019-08-26 12:38 | disposition home or self-care (01) ==
LOC: M ED 00:31 → CANBEDREQ 08-26 11:57 → M ED 08-26 12:38
DX: Z04.6 Encounter for general psychiatric examination, requested by authority (principal); F32.9 Major depressive disorder, single episode, unspecified; F17.290 Nicotine dependence, other tobacco product, uncomplicated; F12.20 Cannabis dependence, uncomplicated; Z88.1 Allergy status to other antibiotic agents; Z88.8 Allergy status to other drugs, medicaments and biological substances
CPT/HCPCS: 36415; 80048; 80076; 80307; 84443; 85027; 93005; 99284; G0480

== ENCOUNTER 2019-10-01 08:41 | Emergency (ER) | payer OTHER ==
[2019-10-01] MEDS ORDERED: ABIL1TAB11 PO (10:09)
[2019-10-01] MEDS ORDERED: EFFE75CA2 PO (10:09)
[2019-10-01] MEDS ORDERED: BENA25CA4 PO (10:09)
[2019-10-01 10:20] VITALS: BP 122/91
== END 2019-10-01 10:26 | disposition home or self-care (01) ==
LOC: M ED 08:41
DX: F39 Unspecified mood [affective] disorder (principal); J45.909 Unspecified asthma, uncomplicated; F31.9 Bipolar disorder, unspecified; Z79.899 Other long term (current) drug therapy; Z88.0 Allergy status to penicillin; Z88.1 Allergy status to other antibiotic agents; Z88.8 Allergy status to other drugs, medicaments and biological substances

== ENCOUNTER → 2021-01-28 | Outpatient (CLI) | payer MEDICAID ==
[~2021-01-28] MED LIST changes: +ABIL1TAB11 PO; +BENA25CA4 PO; +ESCI10TA16 PO; -ESCI10TA2 PO
== END ==
LOC: M OUTALCOH 09:21
PROVIDERS: ATTEND Psychiatry & Neurology Psychiatry
DX: Z03.89 Encounter for observation for other suspected diseases and conditions ruled out (principal)

== ENCOUNTER 2021-02-02 16:13 | Outpatient (RCR) | payer MEDICAID | END 2021-02-03 | LOC: M OUTALCOH 16:13 | PROVIDERS: ATTEND Psychiatry & Neurology Psychiatry | DX: Z03.89 Encounter for observation for other suspected diseases and conditions ruled out (principal); Z72.0 Tobacco use ==

== ENCOUNTER 2021-02-07 08:27 | Emergency (ER) | payer MEDICAID ==
[~2021-02-07] VITALS: Ht 167.6 cm; Wt 77.8 kg
[2021-02-07] MEDS ORDERED: ABIL1INJ2 IM (08:38)
[2021-02-07] MEDS ORDERED: LITH300C PO (08:38)
[2021-02-07] MEDS ORDERED: ACETAMINOPHEN 500 MG TAB PO ONE (09:15)
[2021-02-07 09:30] LABS: BASO % 0.2 % (0.0-1.0); EOS % 0.7 % (0.0-3.0); HEMATOCRIT 39.8 % (36.0-47.0); HEMOGLOBIN 13.2 g/dl (12.0-15.5); LYMPH # 1.6 10^3/uL (1.5-5.0); LYMPH % 29.2 % (24.0-44.0); MEAN CORPUSCULAR HEMOGLOBIN 30.8 pg (27.0-33.0); MEAN CORPUSCULAR HGB CONC 33.2 g/dl (32.0-36.5); MONO # 0.4 10^3/uL (0.0-0.8); MONO % 7.1 % (2.0-8.0); NEUTROPHILS # 3.4 10^3/uL (1.5-8.5); NEUTROPHILS % 62.4 % (36.0-66.0); PLATELET COUNT, AUTOMATED 235 10^3/uL (150-450); RED BLOOD COUNT 4.28 10^6/uL (4.00-5.40); WHITE BLOOD COUNT 5.4 10^3/uL (4.0-10.0)
[2021-02-07 09:42] LABS: INR 1.13; PROTHROMBIN TIME 14.8 SECONDS (12.5-14.3)
--- NOTE | 2021-02-07 09:49 | REP ---
INDICATION: r/o constipation. COMPARISON: Abdomen/pelvis CT dated 10/17/2018. TECHNIQUE: Single AP supine view of the abdomen and pelvis. FINDINGS: There is a moderate volume of fecal residue in the ascending colon the rectosigmoid colon. The bowel gas pattern is normal. There are no calcifications. The skeletal structures and soft tissues otherwise are unremarkable. IMPRESSION: Normal bowel gas pattern. Moderate volume of fecal residue in the ascending colon and rectosigmoid colon. <Electronically signed by Ryan White > 02/07/21 0946
[2021-02-07 09:58] LABS: ALBUMIN 4.1 GM/DL (3.2-5.2); BILIRUBIN,DIRECT 0.2 MG/DL (0.0-0.2); BILIRUBIN,TOTAL 0.6 MG/DL (0.2-1.0); TOTAL PROTEIN 7.2 GM/DL (6.4-8.2)
[2021-02-07 11:30] VITALS: BP 123/75
== END 2021-02-07 11:34 | disposition home or self-care (01) ==
LOC: M ED 08:27
DX: K59.00 Constipation, unspecified (principal); K92.2 Gastrointestinal hemorrhage, unspecified; K64.8 Other hemorrhoids; R51.9 Headache, unspecified; J45.909 Unspecified asthma, uncomplicated; M26.609 Unspecified temporomandibular joint disorder, unspecified side; G89.29 Other chronic pain; M54.9 Dorsalgia, unspecified; Z87.42 Personal history of other diseases of the female genital tract; F41.9 Anxiety disorder, unspecified; F31.9 Bipolar disorder, unspecified; F17.200 Nicotine dependence, unspecified, uncomplicated; Z88.1 Allergy status to other antibiotic agents

== ENCOUNTER 2021-04-01 10:00 | Outpatient (RCR) | payer MEDICAID, OTHER ==
[~2021-04-01 10:00] MED LIST changes: +ABIL1INJ2 IM; +LITH300C PO
== END 2021-04-05 ==
LOC: M OUTALCOH 10:00
PROVIDERS: ATTEND Psychiatry & Neurology Psychiatry
DX: F12.20 Cannabis dependence, uncomplicated (principal); Z72.0 Tobacco use

== ENCOUNTER 2021-04-29 08:47 | Outpatient (RCR) | payer MEDICAID, OTHER | END 2021-05-05 | LOC: M OUTALCOH 08:47 | PROVIDERS: ATTEND Psychiatry & Neurology Psychiatry | DX: F12.20 Cannabis dependence, uncomplicated (principal); Z72.0 Tobacco use ==

== ENCOUNTER 2021-06-03 09:00 | Outpatient (RCR) | payer OTHER | END 2021-06-05 | LOC: M OUTALCOH 09:00 | PROVIDERS: ATTEND Psychiatry & Neurology Psychiatry | DX: F12.20 Cannabis dependence, uncomplicated (principal); Z72.0 Tobacco use ==

== ENCOUNTER → 2021-06-17 | Outpatient (CLI) | payer OTHER ==
[2021-06-17 15:43] LABS: BLOOD UREA NITROGEN 12 MG/DL (7-18); CARBON DIOXIDE LEVEL 27 MEQ/L (21-32); CHLORIDE LEVEL 108 MEQ/L (98-107); CHOLESTEROL LEVEL 145 MG/DL (<200); CREATININE FOR GFR 0.86 MG/DL (0.55-1.30); GLOMERULAR FILTRATION RATE > 60.0 (>60); GLUCOSE, FASTING 62 MG/DL (70-100); HDL CHOLESTEROL 48 MG/DL (>40); LDL CHOLESTEROL 86 MG/DL (<100); LITHIUM LEVEL 0.31 MEQ/L (0.60-1.20); NON-HDL-C 97 MG/DL; POTASSIUM SERUM 4.1 MEQ/L (3.5-5.1); SODIUM LEVEL 139 MEQ/L (136-145); TRIGLYCERIDES LEVEL 55 MG/DL (<150)
== END ==
LOC: M PLALAB 10:23
PROVIDERS: ATTEND Psychiatry & Neurology Psychiatry
DX: Z65.3 Problems related to other legal circumstances (principal)

== ENCOUNTER 2021-07-01 09:00 | Outpatient (RCR) | payer OTHER | END 2021-07-06 | LOC: M OUTALCOH 09:00 | PROVIDERS: ATTEND Psychiatry & Neurology Psychiatry | DX: F12.20 Cannabis dependence, uncomplicated (principal); Z72.0 Tobacco use ==

== ENCOUNTER → 2021-08-05 | Outpatient (RCR) | payer OTHER | LOC: M OUTALCOH 07-15 09:00 | PROVIDERS: ATTEND Psychiatry & Neurology Psychiatry | DX: F12.20 Cannabis dependence, uncomplicated (principal); Z72.0 Tobacco use ==

== ENCOUNTER 2021-09-03 10:00 | Outpatient (RCR) | payer OTHER ==
[~2021-09-03 10:00] MED LIST changes: -IBUP200T45 PO; +IBUP200T46 PO
== END 2021-09-05 ==
LOC: M OUTALCOH 10:00
PROVIDERS: ATTEND Psychiatry & Neurology Psychiatry
DX: F12.20 Cannabis dependence, uncomplicated (principal); Z72.0 Tobacco use

== ENCOUNTER 2021-09-09 12:22 | Emergency (ER) | payer OTHER ==
[~2021-09-09] VITALS: Ht 165.1 cm; Wt 72.1 kg
[2021-09-09 12:23] VITALS: BP 105/62
--- OUTSIDE RECORDS SUMMARY | 2021-09-09 12:28 | CCD ---
Author Author Allison Samayoa Organization [facility] Address Unknown Phone Unavailable Care Team Providers Care Project Development Coordinator Name Role Phone Hyacinth Samayoa PCP Unavailable Allergies, Adverse Reactions, Alerts Allergy Substance Code C odeSystem Reaction Severity Critic ality Status Start Date Moderate Medications Medication Medication Code Medication CodeSystem Start Date Stop Date Route Dose Status Fill Instructions RxNorm Problems Problem Name Code CodeSy stem Alternate Code Alternate CodeSystem Start Date End Date Status Narrative Emotionally unstable personality disorder SNOMED-CT 2016-11-16 Active Schizoaffective disorder, bipolar type [id number] SNOMED-CT 2016-11-16 Active Schizoaffective disorder, bipolar type [id number] SNOMED-CT 2016-11-16 Active Cannabis use disorder, Moderate [id number] SNOMED-CT 2016-11-16 Active Cocaine dependence, uncomplicated 6073200 9 SNOMED-CT 2016-11-16 Active Schizoaffective disorder, bipolar type 27481234 SNOMED-CT 2016-11-16 Active Cocaine dependence, uncomplicated [id number] 9 SNOMED-CT 2016-11-16 Active Bipolar affective disorder, unspecified 13594508 SNOMED-CT 2021-01-27 Active Emotionally unstable personality disorder SNOMED-CT 2016-11-16 Active Cocaine dependence, uncomplicated 3750000 9 SNOMED-CT 2016-11-16 Active Cannabis use disorder, Moderate [id number] SNOMED-CT 2016-11-16 Active Cannabis use disorder, Moderate [id number] SNOMED-CT 2016-11-16 Active Emotionally unstable personality disorder SNOMED-CT 2016-11-16 Active Relevant diagnostic tests/laboratory data Narrative No Information Procedures Procedure Name Code Code System Target Site Date of Procedure Status Service Delivery Location Device Cod e Device Name Device UID Psychotherapy, 45 minutes with patient [id number] SNOMED-CT () 2016-09-[address], [id number] Psychotherapy, 45 minutes with patient [id number] SNOMED-CT () 2016-11-[address], [id number] Individual Psychotherapy [id number] SNOMED-CT () 2016-12-[address], [id number] Individual Psychotherapy [id number] SNOMED-CT () 2017-07-[address], [id number] Individual Psychotherapy [id number] SNOMED-CT () 2016-09-[address], [id number] Individual Psychotherapy [id number] SNOMED-CT () 2016-11-[address], [id number] Psychiatric Diagnostic Evaluation without medical serv ices [id number] SNOMED-CT () 2016-11-[address], [id number] SNOMED-CT () 2021-02-05 completed [facility] [address] [place] [address], [id number] SNOMED-CT () 2021-03-06 completed [facility] [address] [place] [address], [id number] SNOMED-CT () 2021-04-06 completed [facility] [address] [place] [address], [id number] SNOMED-CT () 2021-05-06 completed [facility] [address] [place] [address], [id number] SNOMED-CT () 2021-06-06 completed [facility] [address] [place] [address], [id number] SNOMED-CT () 2021-07-07 completed [facility] [address] [place] [address], [id number] SNOMED-CT () 2021-08-06 completed [facility] [address] [place] [address], [id number] SNOMED-CT () 2021-09-06 completed [facility] [address] [place] [address], [id number] SNOMED-CT () 2021-02-05 completed [facility] [address] [place] [address], [id number] SNOMED-CT () 2021-03-06 completed [facility] [address] [place] [address], [id number] SNOMED-CT () 2021-04-06 completed [facility] [address] [place] [address], [id number] SNOMED-CT () 2021-05-06 completed [facility] [address] [place] [address], [id number] SNOMED-CT () 2021-06-06 completed [facility] [address] [place] [address], [id number] SNOMED-CT () 2021-07-07 completed [facility] [address] [place] [address], [id number] SNOMED-CT () 2021-08-06 completed [facility] [address] [place] [address], [id number] SNOMED-CT () 2021-09-06 completed [facility] [address] [place] [address], [id number] SNOMED-CT () 2021-01-04 completed [facility] [address] [place] [address], [id number] SNOMED-CT () 2016-11-[address], [id number] [id number] Encounters/Encounter Diagnoses Encounter Name Encounter Code Diagnosis Code Diagnosis Name Diagnosis CodeSystem Date of Diagnosis Service Delivery L ocation non-billable [id number] Bipolar affective disorder, unspecified SNOMED-CT 2021-09-06 [facility] , , Vital Signs No Information Social History Element Description Description Start Date End Date Code CodeSystem AdditionalInfo SexAssignedAtBirth Female 1995 F AdministrativeGender Hospital Discharge Instructions * Reason For Referral Medical Equipment * FDA Assessments * Goals Section Goals Planned DateTime SM: I will learn more healthy coping ski lls to further my independence. 2021-02-16 SAS: I will follow my relaspe prevention plan. 2021-02-16 HS: I will attend all my appointments an d follow AOT guidelines. 2021-02-16 MMT: I will take my medications daily as prescribed. 2021-02-16 AT: I will be more assertive. 07-19 RC: I will achieve my short-term goals. 2021-07-19
--- OUTSIDE RECORDS SUMMARY | 2021-09-09 12:29 | CCD ---
Author Author Allison Samayoa Organization [facility] Address Unknown Phone Unavailable Care Team Providers Care Ergonomics Engineer Name Role Phone Hyacinth Samayoa PCP Unavailable Allergies, Adverse Reactions, Alerts Allergy Substance Code C odeSystem Reaction Severity Critic ality Status Start Date Moderate Medications Medication Medication Code Medication CodeSystem Start Date Stop Date Route Dose Status Fill Instructions RxNorm Problems Problem Name Code CodeSy stem Alternate Code Alternate CodeSystem Start Date End Date Status Narrative Cannabis use disorder, Moderate [id number] SNOMED-CT 2016-11-16 Active Cannabis use disorder, Moderate 111357585 SNOMED-CT 2016-11-16 Active Emotionally unstable personality disorder SNOMED-CT 2016-11-16 Active Cannabis use disorder, Moderate 954980162 SNOMED-CT 2016-11-16 Active Cocaine dependence, uncomplicated 0072711 9 SNOMED-CT 2016-11-16 Active Schizoaffective disorder, bipolar type 74107813 SNOMED-CT 2016-11-16 Active Emotionally unstable personality disorder SNOMED-CT 2016-11-16 Active Bipolar affective disorder, unspecified 46042941 SNOMED-CT 2021-01-27 Active Cocaine dependence, uncomplicated 1431379 9 SNOMED-CT 2016-11-16 Active Schizoaffective disorder, bipolar type 49684898 SNOMED-CT 2016-11-16 Active Schizoaffective disorder, bipolar type 27747508 SNOMED-CT 2016-11-16 Active Cocaine dependence, uncomplicated 5962294 9 SNOMED-CT 2016-11-16 Active Emotionally unstable personality disorder SNOMED-CT 2016-11-16 Active Relevant diagnostic tests/laboratory data Narrative No Information Procedures Procedure Name Code Code System Target Site Date of Procedure Status Service Delivery Location Device Cod e Device Name Device UID Psychotherapy, 45 minutes with patient [id number] SNOMED-CT () 2016-09-[address], [id number] Psychotherapy, 45 minutes with patient [id number] SNOMED-CT () 2016-11-[address], [id number] Individual Psychotherapy [id number] SNOMED-CT () 2016-12-[address], [id number] Individual Psychotherapy [id number] SNOMED-CT () 2017-07-[address], [id number] Individual Psychotherapy [id number] SNOMED-CT () 2016-09-[address], [id number] Individual Psychotherapy [id number] SNOMED-CT () 2016-11-[address], [id number] Psychiatric Diagnostic Evaluation without medical serv ices [id number] SNOMED-CT () 2016-11-[address], [id number] SNOMED-CT () 2021-02-05 completed [facility] [address] [place] [address], [id number] SNOMED-CT () 2021-03-06 completed [facility] [address] [place] [address], [id number] SNOMED-CT () 2021-04-06 completed [facility] [address] [place] [address], [id number] [id number] SNOMED-CT () 2021-05-06 completed [facility] [address] [place] [address], [id number] SNOMED-CT () 2021-06-06 completed [facility] [address] [place] [address], [id number] SNOMED-CT () 2021-07-07 completed [facility] [address] [place] [address], [id number] SNOMED-CT () 2021-08-06 completed [facility] [address] [place] [address], [id number] [id number] SNOMED-CT () 2021-02-05 completed [facility] [address] [place] [address], [id number] SNOMED-CT () 2021-03-06 completed [facility] [address] [place] [address], [phone] SNOMED-CT () 2021-04-06 completed [facility] [address] [place] [address], [id number] SNOMED-CT () 2021-05-06 completed [facility] [address] [place] [address], [id number] SNOMED-CT () 2021-06-06 completed [facility] [address] [place] [address], [id number] SNOMED-CT () 2021-07-07 completed [facility] [address] [place] [address], [id number] SNOMED-CT () 2021-08-06 completed [facility] [address] [place] [address], [id number] SNOMED-CT () 2021-01-04 completed [facility] [address] [place] [address], [id number] [id number] SNOMED-CT () 2016-11-[address], [id number] [id number] Encounters/Encounter Diagnoses Encounter Name Encounter Code Diagnosis Code Diagnosis Name Diagnosis CodeSystem Date of Diagnosis Service Delivery L ocation non-billable 36323 39801 004 Bipolar affective disorder, unspecified SNOMED-CT 2021-08-09 [facility] , , , Vital [...]
--- OUTSIDE RECORDS SUMMARY | 2021-09-09 12:29 | CCD ---
Author Author Allison Samayoa Organization [facility] Address Unknown Phone Unavailable Care Team Providers Care Software Build Engineer Name Role Phone Hyacinth Samayoa PCP Unavailable Allergies, Adverse Reactions, Alerts Allergy Substance Code C odeSystem Reaction Severity Critic ality Status Start Date Moderate Medications Medication Medication Code Medication CodeSystem Start Date Stop Date Route Dose Status Fill Instructions RxNorm Problems Problem Name Code CodeSy stem Alternate Code Alternate CodeSystem Start Date End Date Status Narrative Cannabis use disorder, Moderate [id number] SNOMED-CT 2016-11-16 Active Schizoaffective disorder, bipolar type 28222386 SNOMED-CT 2016-11-16 Active Cannabis use disorder, Moderate 887310931 SNOMED-CT 2016-11-16 Active Cannabis use disorder, Moderate 754495804 SNOMED-CT 2016-11-16 Active Schizoaffective disorder, bipolar type 68678581 SNOMED-CT 2016-11-16 Active Emotionally unstable personality disorder SNOMED-CT 2016-11-16 Active Bipolar affective disorder, unspecified 96593947 SNOMED-CT 2021-01-27 Active Cocaine dependence, uncomplicated 9563047 9 SNOMED-CT 2016-11-16 Active Cocaine dependence, uncomplicated 4147459 9 SNOMED-CT 2016-11-16 Active Schizoaffective disorder, bipolar type 13727743 SNOMED-CT 2016-11-16 Active Emotionally unstable personality disorder SNOMED-CT 2016-11-16 Active Emotionally unstable personality disorder 06454023 SNOMED-CT 2016-11-16 Active Cocaine dependence, uncomplicated 4566828 9 SNOMED-CT 2016-11-16 Active Relevant diagnostic tests/laboratory data Narrative No Information Procedures Procedure Name Code Code System Target Site Date of Procedure Status Service Delivery Location Device Cod e Device Name Device UID Psychotherapy, 45 minutes with patient [id number] SNOMED-CT () 2016-09-[address], [id number] Psychotherapy, 45 minutes with patient [id number] SNOMED-CT () 2016-11-[address], [id number] Individual Psychotherapy [id number] SNOMED-CT () 2016-12-[address], [id number] Individual Psychotherapy [id number] SNOMED-CT () 2017-07-[address], [id number] [id number] Individual Psychotherapy [id number] SNOMED-CT () 2016-09-[address], [id number] [id number] Individual Psychotherapy [id number] SNOMED-CT () 2016-11-[address], [id number] [id number] Psychiatric Diagnostic Evaluation without medical serv ices [id number] SNOMED-CT () 2016-11-[address], [id number] [id number] SNOMED-CT () 2021-02-05 completed [facility] [address] [place] [address], [id number] [phone] SNOMED-CT () 2021-03-06 completed [facility] [address] [place] [address], [id number] [id number] SNOMED-CT () 2021-04-06 completed [facility] [address] [place] [address], [id number] [id number] SNOMED-CT () 2021-05-06 completed [facility] [address] [place] [address], [id number] [id number] SNOMED-CT () 2021-06-06 completed [facility] [address] [place] [address], [id number] [id number] SNOMED-CT () 2021-07-07 completed [facility] [address] [place] [address], [id number] [phone] SNOMED-CT () 2021-02-05 completed [facility] [address] [place] [address], [id number] [id number] SNOMED-CT () 2021-03-06 completed [facility] [address] [place] [address], [id number] [phone] SNOMED-CT () 2021-04-06 completed [facility] [address] [place] [address], [id number] [id number] SNOMED-CT () 2021-05-06 completed [facility] [address] [place] [address], [id number] [phone] SNOMED-CT () 2021-06-06 completed [facility] [address] [place] [address], [id number] [id number] SNOMED-CT () 2021-07-07 completed [facility] [address] [place] [address], [id number] [phone] SNOMED-CT () 2021-01-04 completed [facility] [address] [place] [address], [id number] [phone] SNOMED-CT () 2016-11-[address], [id number] [phone] Encounters/Encounter Diagnoses Encounter Name Encounter Code Diagnosis Code Diagnosis Name Diagnosis CodeSystem Date of Diagnosis Service Delivery L ocation non-billable 16183 52869 004 Bipolar affective disorder, unspecified SNOMED-CT 2021-07-05 [facility] , , , Vital Signs [...] SAS: I will follow my relaspe prevention paln. 2021-02-16 HS: I will attend all my appointments an d follow AOT guidelines. 2021-02-16 MMT: I will take my medications daily as prescribed. 2021-02-16
--- OUTSIDE RECORDS SUMMARY | 2021-09-09 12:29 | CCD ---
Author Author [facility] Organization [facility] Address Unknown Phone Unavailable Care Team Providers Care Fur Trimmer Name Role Phone Scordo, M Marie PA Unavailable Unavailable Scordo, M Marie PA Unavailable Unavailable Scordo, M Marie PA Unavailable Unavailable Scordo, M Marie PA Unavailable Unavailable Scordo, M Marie PA Unavailable Unavailable Scordo, M Marie PA Unavailable Unavailable Scordo, M Marie PA Unavailable Unavailable Scordo, M Marie PA Unavailable Unavailable Scordo, M Marie PA Unavailable Unavailable Scordo, M Marie PA Unavailable Unavailable Scordo, M Marie PA Unavailable Unavailable Scordo, M Amrie PA Unavailable Unavailable Scordo, M Marie PA Unavailable Unavailable Scordo, M Marie PA Unavailable Unavailable Scordo, M Marie PA Unavailable Unavailable Scordo, M Marie PA Unavailable Unavailable Scordo, M Marie PA Unavailable Unavailable Scordo, M Marie PA Unavailable Unavailable Scordo, M Marie PA Unavailable Unavailable Scordo, M Marie PA Unavailable Unavailable Scordo, M Marie PA Unavailable Unavailable Scordo, M Marie PA Unavailable Unavailable Scordo, M Marie PA Unavailable Unavailable Scordo, M Marie PA Unavailable Unavailable Scordo, M Marie PA Unavailable Unavailable Scordo, M Marie PA Unavailable Unavailable Scordo, M Marie PA Unavailable Unavailable Scordo, M Marie PA Unavailable Unavailable Scordo, M Marie PA Unavailable Unavailable Scordo, M Marie PA Unavailable Unavailable Scordo, M Marie PA Unavailable Unavailable Scordo, M Marie PA Unavailable Unavailable Scordo, M Marie PA Unavailable Unavailable Scordo, M Marie PA Unavailable Unavailable Scordo, M Marie PA Unavailable Unavailable Scordo, M Marie PA Unavailable Unavailable Scordo, M Marie PA Unavailable Unavailable Scordo, M Marie PA Unavailable Unavailable Scordo, M Marie PA Unavailable Unavailable Scordo, M Marie PA Unavailable Unavailable Scordo, M Marie PA Unavailable Unavailable Scordo, M Marie PA Unavailable Unavailable Scordo, M Marie PA Unavailable Unavailable Scordo, M Marie PA Unavailable Unavailable Scordo, M Marie PA Unavailable Unavailable Scordo, M Marie PA Unavailable Unavailable Scordo, M Marie PA Unavailable Unavailable Re-disclosure Warning The records that you are about to access may contain information from federally-assisted alcohol or drug abuse programs. If such information is present, then the following federally mandated warning applies: This information has been disclosed to you from records protected by federal confidentiality rules (42 CFR part 2). The federal rules prohibit you from making any further disclosure of this information unless further disclosure is expressly permitted by the written consent of the person to whom it pertains or as otherwise permitted by 42 CFR part 2. A general authorization for the release of medical or other information is NOT sufficient for this purpose. The Federal rules restrict any use of the information to criminally investigate or prosecute any alcohol or drug abuse patient.The records that you are about to access may contain highly sensitive health information, the redisclosure of which is protected by Article 27-F of the [place] State Public Health law. If you continue you may have access to information: Regarding HIV / AIDS; Provided by facilities licensed or operated by the [facility] Office of Mental Health; or Provided by the [facility] Office for People With Developmental Disabilities. If such information is present, then the following [facility] mandated warning applies: This information has been disclosed to you from confidential records which are protected by state law. State law prohibits you from making any further disclosure of this information without the specific written consent of the person to whom it pertains, or as otherwise permitted by law. Any unauthorized further disclosure in violation of state law may result in a fine or correction sentence or both. A general authorization for the release of medical or other information is NOT sufficient authorization for further disc losure. Encounters Encounter Providers Location Date Indications Data Source(s ) [facility]billable [facility] 09/06/2021 12:00:00 AM EDT [facility] ([facility]) non-billable [facility] 08/09/2021 12:00:00 AM EDT [facility] ([facility]) non-billable [facility] 07/05/2021 12:00:00 AM EDT [facility] ([facility]) non-billable [facility] 06/07/2021 12:00:00 AM EDT [facility] ([facility]) non-billable [facility] 05/06/2021 12:00:00 AM EDT [facility] ([facility]) USHA LorenzoC: [address] [place] [id number], Ph. Attender: Marie ALMANZAR [facility] Medical 04/09/2021 12:00:00 AM EDT [place] ([facility]) non-billable [facility] 04/06/2021 12:00:00 AM EDT [facility] ([facility]) Outpatient [address] [facility] 1 [id number] Team 01/26/2021 12:00:00 PM EDT [facility] ([facility]) Patient admitted. Outpatient [address] [facility] 1 [id number] 06/01/2020 12:00:00 AM EDT [facility] ([facility]) Patient admitted. Immunizations Vaccine Date Status Description Data Source(s) COVID-19 VACCINE Moderna 07/20/2021 12:00:00 AM EDT completed [facility] Vaccine Series Complete: YESThis Data wa s Submitted to [facility]. COVID-19 VACCINE Moderna 06/22/2021 12:00:00 AM EDT [facility] Complete: NOThis Data was Submitted to [facility] [employer]. Medications Medication Brand Name Start Date Product Form Dose Route Admi nistrative Instructions Pharmacy Instructions Status Indications Reaction Description Data Source(s) 300 mg 09/03/2021 12:00:00 AM EDT capsule 30 TAKE ONE CAPSULE BY MOUTH AT BEDTIME TAKE ONE CAPSULE BY MOUTH AT BEDTIME SOLD: 09/07/2021 [facility] 300 mg 08/03/2021 12:00:00 AM EDT capsule 30 TAKE ONE CAPSULE BY MOUTH EVERY MORNING TAKE ONE CAPSULE BY MOUTH EVERY MORNING SOLD: 08/04/2021 [facility] Cephalexin 500 MG Oral Capsule CEPHALEXIN 07/08/2021 12:00:00 AM EDT capsule 21 TAKE ONE CAPSULE BY MOUTH THREE TIMES A DAY FOR 7 DAYS TAKE ONE CAPSULE BY MOUTH THREE TIMES A DAY FOR 7 DAYS SOLD: 07/08/2021 [facility] 400 mg 07/03/2021 12:00:00 AM EDT suspension,extended rel syring 1 INJECT INTRAMUSCULARLY EVERY 4 WEEKS INJECT INTRAMUSCULARLY EVERY 4 WEEKS SOLD: 09/02/2021 [facility] 400 mg 07/03/2021 12:00:00 AM EDT suspension,extended rel syring 1 INJECT INTRAMUSCULARLY EVERY 4 WEEKS INJECT INTRAMUSCULARLY EVERY 4 WEEKS SOLD: 08/04/2021 [facility] 400 mg 07/03/2021 12:00:00 AM EDT suspension,extended rel syring 1 INJECT INTRAMUSCULARLY EVERY 4 WEEKS INJECT INTRAMUSCULARLY EVERY 4 WEEKS SOLD: 07/05/2021 [facility] 300 mg 07/02/2021 12:00:00 AM EDT capsule 30 TAKE ONE CAPSULE BY MOUTH EVERY MORNING TAKE ONE CAPSULE BY MOUTH EVERY MORNING SOLD: 07/02/2021 [facility] 300 mg 05/28/2021 12:00:00 AM EDT capsule 30 TAKE ONE CAPSULE BY MOUTH EVERY MORNING TAKE ONE CAPSULE BY MOUTH EVERY MORNING SOLD: 05/31/2021 [facility] 400 mg 05/07/2021 12:00:00 AM EDT suspension,extended rel syring 1 INJECT 400MG INTRAMUSCULARLY EVERY 4 WEEKS INJECT 400MG INTRAMUSCULARLY EVERY 4 WEEKS SOLD: 06/07/2021 [facility] 400 mg 05/07/2021 12:00:00 AM EDT suspension,extended rel syring 1 INJECT 400MG INTRAMUSCULARLY EVERY 4 WEEKS INJECT 400MG INTRAMUSCULARLY EVERY 4 WEEKS SOLD: 05/11/2021 [facility] Insurance Providers Payer name Policy type / Coverage type Policy ID Covered green party ID Covered green party's relationship to martinez Policy Martinez Plan Information GERDA MEDICAID [id number] Kailee [id number] [employer]AST [employer]NA [id number] SP [id number] EMEDNY [id number] SP [id number] [facility] [id number] SP [id number] EAST HUMANA [id number] SP [id number] MEDICAID [id number] SP [id number] EAST HU[employer]NA [id number] SP [id number] EAST HU[employer]NA [id number] SP [id number] SELF PAY ONLY [id number] SP [id number] [place] [id number] S [id number] GERDA [id number] SP [id number] SELF PAY ONLY [id number] SP [id number] MEDICAID M [id number] S [id number] PGBA ANSTED [place]ION [id number] PGBA ANSTED NANI O [id number] P [id number] PGBA FORMERLY [facility] [id number] GERDA [id number] SP [id number] [facility] MEDICAID [id number] SP [id number] Problems, Conditions, and Diagnoses Code Display Name Description Problem Type Effective Dates Data Source(s) F31.9 Bipolar disorder, unspecified Bipolar I disorder, Current or most recent episode depressed, Unspecified Diagnosis 01/26/2021 12:00:00 AM EDT [facility] ([facility]) F60.3 Borderline personality disorder Borderline personality disorder Diagnosis 01/26/2021 12:00:00 AM EDT [facility] ([facility]) [id number] Depressive disorder Depressive Disorder Problem 0 04/09/2021 12:00:00 AM EDT [place] ([facility]) [id number] Borderline personality disorder Borderline Perso nality Disorder Problem 04/09/2021 12:00:00 AM EDT [place] ([facility]) [id number] Schizoaffective disorder Schizoaffective Disorder Prob italo 04/09/2021 12:00:00 AM EDT [place] ([facility]) [id number] Bipolar affective disorder, unspecified Bipolar affective disorder, unspecified Condition 01/27/2021 12:00:00 AM EDT [facility] [id number] Bipolar affective disorder, unspecified Bipolar affective disorder, unspecified Condition 01/27/2021 12:00:00 AM EDT [facility] ([facility]) [id number] Bipolar affective disorder, unspecified Bipolar affective disorder, unspecified Condition 01/27/2021 12:00:00 AM EDT [facility] ([facility]) 09247711 Bipolar affective disorder, unspecified Bipolar affective disorder, unspecified Condition 01/27/2021 12:00:00 AM EDT [facility] ([facility]) [id number] Bipolar affective disorder, unspecified Bipolar affective disorder, unspecified Condition 01/27/2021 12:00:00 AM EDT [facility] ([facility]) [id number] Bipolar affective disorder, unspecified Bipolar affective disorder, unspecified Condition 01/27/2021 12:00:00 AM EDT [facility] ([facility]) Surgeries/Procedures No Information Results No Information Social History No Information Vital Signs ID Date Data Source UNK Name Value Range Interpretation Code Description Data Source(s) Body mass index (BMI) [Ratio] 26.1 kg/m2 26.1 k g/m2 [facility] ([facility]) Diastolic blood pressure 70 mm[Hg] 70 mm[Hg] [facility] ([facility]) Body height 66 [in_i] 66 [in_i] [facility] ([facility]) Systolic blood pressure 106 mm[Hg] 106 mm[Hg] Debi THENDebi ([facility]) Body weight 2592 [oz_av] 2592 [oz_av] [place] ([facility]) ID Date Data Source [id number] 01/26/2021 10:39:00 AM EDT [facility] ([facility]) Name Value Range Interpretation Code Description Data Source(s) Diastolic blood pressure 77 mm[Hg] 77 mm[Hg] [facility] ([facility]) Systolic blood pressure 121 mm[Hg] 121 mm[Hg] M [facility] ([facility]) Body weight 183 [lb_av] 183 [lb_av] [facility] ([facility]) Body height 66 [in_i] 66 [in_i] [facility] ([facility])
== END 2021-09-09 17:41 | disposition left against medical advice (07) ==
LOC: M ED 12:22
DX: Z53.21 Procedure and treatment not carried out due to patient leaving prior to being seen by health care provider (principal)

== ENCOUNTER 2021-09-24 15:00 | Outpatient (RCR) | payer OTHER ==
[~2021-09-24 15:00] MED LIST changes: -LEVO500T3 PO; +LEVO500T4 PO
== END 2021-10-05 ==
LOC: M OUTALCOH 15:00
PROVIDERS: ATTEND Psychiatry & Neurology Psychiatry
DX: F12.20 Cannabis dependence, uncomplicated (principal); Z72.0 Tobacco use

== ENCOUNTER 2021-10-15 13:45 | Outpatient (RCR) | payer OTHER ==
[~2021-10-15 13:45] MED LIST changes: +LEVO500T3 PO; -LEVO500T4 PO
== END 2021-11-05 ==
LOC: M OUTALCOH 13:45
PROVIDERS: ATTEND Psychiatry & Neurology Psychiatry
DX: F12.20 Cannabis dependence, uncomplicated (principal); Z72.0 Tobacco use

== ENCOUNTER → 2021-12-06 | Outpatient (RCR) | payer OTHER ==
[~2021-12-06] MED LIST changes: -LEVO500T3 PO; +LEVO500T4 PO
== END ==
LOC: M OUTALCOH 11-19 08:55
PROVIDERS: ATTEND Psychiatry & Neurology Psychiatry
DX: F12.20 Cannabis dependence, uncomplicated (principal); Z72.0 Tobacco use

== ENCOUNTER → 2022-01-03 | Outpatient (RCR) | payer OTHER | LOC: M OUTALCOH 12-13 15:10 | PROVIDERS: ATTEND Psychiatry & Neurology Psychiatry | DX: F12.20 Cannabis dependence, uncomplicated (principal); Z72.0 Tobacco use ==

== ENCOUNTER 2022-01-14 08:20 | Outpatient (RCR) | payer OTHER | END 2022-02-03 | LOC: M OUTALCOH 08:20 | PROVIDERS: ATTEND Psychiatry & Neurology Psychiatry | DX: F12.20 Cannabis dependence, uncomplicated (principal); Z72.0 Tobacco use ==

== ENCOUNTER → 2024-04-09 | Outpatient (CLI) | payer OTHER ==
[~2024-04-09] MED LIST changes: +DIPH-435 PO; -DIPH25CA32 PO; -DOXY-350 PO; +DOXY-440 PO; +LEVO1TAB39 PO; -LEVO500T4 PO; +ONDA-282 PO; -ONDA4TAB6 PO
== END ==
LOC: M PLALAB 13:50
PROVIDERS: ATTEND Obstetrics & Gynecology Obstetrics
DX: N91.2 Amenorrhea, unspecified (principal)

== ENCOUNTER 2024-07-05 07:44 | Inpatient (IN) | payer OTHER ==
[~2024-07-05] VITALS: Ht 165.1 cm; Wt 62.9 kg
[2024-07-05 08:30] LABS: HEMOGLOBIN 14.2 g/dl (12.0-15.5); MEAN CORPUSCULAR HEMOGLOBIN 29.3 pg (27.0-33.0); MEAN CORPUSCULAR VOLUME 88.8 fl (80.0-96.0); PLATELET COUNT, AUTOMATED 240 10^3/uL (150-450); RED BLOOD COUNT 4.84 10^6/uL (4.00-5.40); WHITE BLOOD COUNT 7.3 10^3/uL (4.0-10.0)
[2024-07-05 08:52] LABS: AMPHETAMINES LEVEL URINE NEGATIVE (NEGATIVE); BARBITURATES URINE NEGATIVE (NEGATIVE); BENZODIAZEPINES URINE NEGATIVE (NEGATIVE); COCAINE METABOLITE URINE NEGATIVE (NEGATIVE); METHADONE URINE NEGATIVE (NEGATIVE); OPIATES URINE NEGATIVE (NEGATIVE); PHENCYCLIDINE URINE NEGATIVE (NEGATIVE)
[2024-07-05 08:53] LABS: ETHYL ALCOHOL (ETHANOL) 0.004 % (0.000-0.010)
[2024-07-05 08:55] LABS: SALICYLATE LEVEL < 3.0 MG/DL (<30)
[2024-07-05 08:56] LABS: CANNABINOIDS URINE POSITIVE (NEGATIVE)
[2024-07-05 08:56] LABS: ALBUMIN 4.6 G/DL (3.2-5.2); ALKALINE PHOSPHATASE 85 U/L (46-116); ALT/SGPT 15 U/L (7.0-40); AST/SGOT 10 U/L (<34); BILIRUBIN,DIRECT 0.3 MG/DL (<0.4); BILIRUBIN,TOTAL 0.8 MG/DL (0.3-1.2); BLOOD UREA NITROGEN 14 MG/DL (9-23); CALCIUM LEVEL 9.4 MG/DL (8.5-10.1); CARBON DIOXIDE LEVEL 25 MMOL/L (20-31); CHLORIDE LEVEL 108 MMOL/L (98-107); CREATININE FOR GFR 0.73 MG/DL (0.55-1.30); GLOMERULAR FILTRATION RATE > 60.0 (>60); GLUCOSE, FASTING 83 MG/DL (60-100); SODIUM LEVEL 138 MMOL/L (136-145); TOTAL PROTEIN 7.9 G/DL (5.7-8.2)
[2024-07-05 08:58] LABS: THYROID STIMULATING HORMONE 1.205 uIU/ML (0.55-4.78)
[2024-07-05 09:04] LABS: HCG, SERUM QUALITATIVE NEGATIVE (NEGATIVE)
[2024-07-05] MEDS ORDERED: HOME MED LIST COMPLETE! XX SCH (11:00)
[2024-07-05] MEDS ORDERED: MOM 30ML SUSPENSION UDC PO PRN (12:15)
[2024-07-05] MEDS ORDERED: traZODone 50 MG TAB PO PRN (12:15)
[2024-07-05] MEDS ORDERED: ACETAMINOPHEN TAB 650MG DOSE (2X325MG) PO PRN (12:15)
[2024-07-05] MEDS ORDERED: diphenhydrAMINE 25MG CAP PO PRN (12:15)
[2024-07-05] MEDS ORDERED: MAALOX 30 ML SUSP *UDC PO PRN (12:15)
[2024-07-06 06:09] VITALS: BP 118/59; TEMP 98; O2SAT 97
[2024-07-06 15:53] VITALS: BP 133/98; TEMP 97.9; O2SAT 99
[2024-07-07 06:30] VITALS: BP 133/83; TEMP 98.2; O2SAT 96
[2024-07-07 15:59] VITALS: BP 116/77; TEMP 98.3; O2SAT 97
[2024-07-08 06:25] VITALS: BP 113/78; TEMP 97.8; O2SAT 100
[2024-07-08 16:00] VITALS: BP 124/82; TEMP 98; O2SAT 100
[2024-07-09 06:22] VITALS: BP 111/65; TEMP 97.2; O2SAT 99
[2024-07-10 06:29] VITALS: BP 126/79; TEMP 98.6; O2SAT 100
[2024-07-11 15:17] VITALS: BP 117/85; TEMP 97.6; O2SAT 100
[2024-07-13 21:13] VITALS: BP 117/85; TEMP 97.6; O2SAT 100
[2024-07-14 17:01] VITALS: BP 109/65; TEMP 97.4; O2SAT 100
[2024-07-15 17:22] VITALS: BP 127/81; TEMP 97.7; O2SAT 100
[2024-07-16 06:25] VITALS: BP 110/68; TEMP 97.8; O2SAT 99
[2024-07-16] MEDS: FLUTICASONE PROP 0.05% NASAL SPRAY 16 GM (FLONASE) NARES SCH (09:00)
[2024-07-17 18:21] VITALS: BP 118/75; TEMP 96.9; O2SAT 97
[2024-07-18 18:39] VITALS: BP 120/75; TEMP 98; O2SAT 98
[2024-07-19] MEDS ORDERED: PERMETHRIN 5% CREAM 60 GM TOP SCH
[2024-07-19] MEDS: OLANZapine ORAL DISINTEGRATING TAB 5MG PO PRN (06:15)
[2024-07-19] MEDS: IBUPROFEN 400MG TAB PO PRN (06:17)
[2024-07-19] MEDS: LACTOBACILLUS ACIDOPHILUS CAP (BACID) PO SCH (08:00)
[2024-07-19] MEDS: CLINDAMYCIN 150MG CAPSULE PO SCH (09:00)
[2024-07-19] MEDS: CHLORHEXIDINE GLUCONATE 0.12 % 15ML UDC (PERIDEX ORAL RINSE) SSP SCH (09:00)
[2024-07-19] MEDS: PERMETHRIN 5% CREAM 60 GM TOP ONE (18:01)
[2024-07-20 06:16] VITALS: BP 119/68; TEMP 97.7; O2SAT 99
[2024-07-20 15:59] VITALS: BP 136/84; TEMP 97.9; O2SAT 99
[2024-07-20] MEDS: PERMETHRIN 5% CREAM 60 GM TOP ONE (20:31)
[2024-07-22] MEDS: diphenhydrAMINE 50MG/ML VIAL IM STA (08:18)
[2024-07-22] MEDS: LORazepam 2 MG/ML 1ML VIAL IM STA (08:18)
[2024-07-22] MEDS: HALOPERIDOL LACTATE 5MG/ML VIAL IM STA (08:18)
[2024-07-22 10:15] VITALS: BP 101/72; TEMP 97.6; O2SAT 98
[2024-07-23] MEDS ORDERED: PERMETHRIN 5% CREAM 60 GM TOP SCH
[2024-07-23] MEDS: PERMETHRIN 5% CREAM 60 GM TOP ONE (10:06)
[2024-07-23 17:12] VITALS: BP 106/56; TEMP 94.4; O2SAT 98
[2024-07-24 06:21] VITALS: BP 114/82; TEMP 97.2; O2SAT 97
[2024-07-24] MEDS: OLANZapine 5 MG TAB PO SCH (09:00)
[2024-07-24 15:57] VITALS: BP 117/75; TEMP 98; O2SAT 98
[2024-07-25 06:31] VITALS: BP 116/66; TEMP 97.6; O2SAT 100
[2024-07-25 16:24] VITALS: BP 124/74; TEMP 97.1; O2SAT 99
[2024-07-26 06:20] VITALS: BP 127/87; TEMP 97; O2SAT 97
[2024-07-26] MEDS ORDERED: PERI12LIQ SSP (08:48)
[2024-07-26] MEDS ORDERED: OLAN5ZYD PO (08:48)
== END 2024-07-26 10:41 | disposition home or self-care (01) | DRG 750 ==
LOC: M ED 07:44 → M ED INP 12:12 → M PSY 14:49
PROVIDERS: ADMIT Psychiatry & Neurology Psychiatry; ATTEND Psychiatry & Neurology Psychiatry
DX: F25.0 Schizoaffective disorder, bipolar type (principal); Z91.148 Patient's other noncompliance with medication regimen for other reason; F12.90 Cannabis use, unspecified, uncomplicated; Z88.0 Allergy status to penicillin; Z88.8 Allergy status to other drugs, medicaments and biological substances; Z11.3 Encounter for screening for infections with a predominantly sexual mode of transmission

== ENCOUNTER 2024-08-19 22:31 | Emergency (ER) | payer MEDICAID, OTHER ==
[~2024-08-19] VITALS: Ht 167.6 cm; Wt 58.9 kg
[~2024-08-19 22:31] MED LIST changes: +OLAN5ZYD PO; +PERI12LIQ SSP
[2024-08-19 22:46] VITALS: TEMP 97.4
[2024-08-19] MEDS: NS 1,000 ML IV ONE (23:25)
[2024-08-19] MEDS: ACETAMINOPHEN 325MG/10.15ML UDC PO ONE (23:25)
[2024-08-20 00:27] LABS: BASO % 0.4 % (0.0-1.0); EOS # 0.1 10^3/uL (0.0-0.5); EOS % 1.8 % (0.0-3.0); HEMATOCRIT 36.4 % (36.0-47.0); HEMOGLOBIN 12.3 g/dl (12.0-15.5); LYMPH # 2.4 10^3/uL (1.5-5.0); LYMPH % 48.8 % (24.0-44.0); MEAN CORPUSCULAR HGB CONC 33.8 g/dl (32.0-36.5); MEAN CORPUSCULAR VOLUME 88.8 fl (80.0-96.0); MONO # 0.3 10^3/uL (0.0-0.8); MONO % 6.8 % (2.0-8.0); NEUTROPHILS # 2.1 10^3/uL (1.5-8.5); NEUTROPHILS % 41.8 % (36.0-66.0); PLATELET COUNT, AUTOMATED 242 10^3/uL (150-450)
[2024-08-20 00:30] VITALS: BP 104/63; O2SAT 96
[2024-08-20 00:41] LABS: ALKALINE PHOSPHATASE 71 U/L (46-116); ALT/SGPT < 9 U/L (7.0-40); AST/SGOT < 8 U/L (<34); BILIRUBIN,TOTAL 0.8 MG/DL (0.3-1.2); BLOOD UREA NITROGEN 10 MG/DL (9-23); CALCIUM LEVEL 9.2 MG/DL (8.5-10.1); CARBON DIOXIDE LEVEL 25 MMOL/L (20-31); CHLORIDE LEVEL 108 MMOL/L (98-107); CREATININE FOR GFR 0.81 MG/DL (0.55-1.30); GLOMERULAR FILTRATION RATE > 60.0 (>60); GLUCOSE, FASTING 88 MG/DL (60-100); POTASSIUM SERUM 3.9 MMOL/L (3.5-5.1); SODIUM LEVEL 139 MMOL/L (136-145)
== END 2024-08-20 01:02 | disposition home or self-care (01) ==
LOC: M ED 22:31 → EDBD 22:31 → M ED 08-20 01:02
DX: K64.4 Residual hemorrhoidal skin tags (principal); Z88.1 Allergy status to other antibiotic agents; Z88.8 Allergy status to other drugs, medicaments and biological substances; Z79.899 Other long term (current) drug therapy

== ENCOUNTER → 2025-01-28 | Outpatient (CLI) | payer OTHER ==
[~2025-01-28] MED LIST changes: -CYCL5TAB PO; +CYCL5TAB4 PO
== END ==
LOC: M PLAIMG 13:43
PROVIDERS: ATTEND Physician Assistant Medical
DX: M25.562 Pain in left knee (principal)